=== PATIENT | male | born 1965 | race Caucasian/White ===

== ENCOUNTER 2018-10-17 12:16 | Inpatient (IN) | payer BC ==
[2018-10-17 13:44] LABS: AADO2 Arterial 442.7 mmHg (7.0-24.0); Allen Test ACCEPTAB; Arterial Base Excess 10.5 mmol/L (-3.0-3); Arterial Blood Gas Oxygen Sat 91.9 mmHG (95.0-98.0); Arterial COHb 0.3 % (0.0-3.0); Arterial Fraction of Oxyhgb 91.3 % (93.0-99.0); Arterial HCO3 36.9 mmol/L (22.0-26.0); Arterial MetHb 0.4 % (0.0-1.5); Arterial pCO2 58.8 mmhg (35-45); MODE VENT - PC/AC; Site Left Radial
[2018-10-17] MEDS ORDERED: BISACODYL 10 MG SUPP PR (14:00)
[2018-10-17] MEDS ORDERED: SENNA TAB PO (14:00)
[2018-10-17] MEDS ORDERED: POLYETHYLENE GLYCOL 17 GM PACKET GTB (14:00)
[2018-10-17] MEDS ORDERED: hydrALAzine 20 MG INJ IV (14:00)
[2018-10-17] MEDS ORDERED: MICONAZOLE 2% 30 GM CR TOP (14:00)
[2018-10-17] MEDS ORDERED: DEXTROSE 50% 50 ML SYRINGE IV ×2 (15:00)
[2018-10-17] MEDS ORDERED: GLUCAGON 1 MG INJ IM (15:00)
[2018-10-17] MEDS ORDERED: GLUCOSE GEL 15 GRAM TUBE BUCCAL (15:00)
[2018-10-17] MEDS ORDERED: GLUCOSE GEL 15 GRAM TUBE PO ×2 (15:00)
[2018-10-17] MEDS: SOD CHLORIDE 0.9% 500 ML IV (15:23)
[2018-10-17] MEDS: GABAPENTIN (50 MG/ML PO SYG) GTB ×2 (15:42→21:54)
[2018-10-17] MEDS: INSULIN ASPART [NOVOLOG] 3 ML PEN SC ×2 (15:42→20:00)
[2018-10-17] MEDS: HYDROCORTISONE 5 MG TAB PO ×2 (15:43→21:54)
[2018-10-17] MEDS: HYDROmorphONE 2 MG TAB PO (15:44)
[2018-10-17] MEDS ORDERED: ALBUTEROL/IPRATROPIUM (NEB) 3 ML AMP HHN (17:00)
[2018-10-17] MEDS: LANSOPRAZOLE 30 MG CAP GTB (17:13)
[2018-10-17] MEDS: ALBUTEROL HFA 8 GM INHALER INH (19:28)
[2018-10-17] MEDS: IPRATROPIUM (HFA) 12.9 GM INHALER INH (19:28)
[2018-10-17] MEDS: PIPER-TAZO 3.375 GM IV (PMX) 100 ML IVPB (20:08)
[2018-10-17] MEDS: METOPROLOL 50 MG TAB GTB (21:00)
[2018-10-17] MEDS: LEVETIRACETAM (100 MG/ML) 5ML CUP GTB (21:52)
[2018-10-17] MEDS: MAGNESIUM OXIDE 400 MG TAB GTB (21:53)
[2018-10-17] MEDS: L ACIDOPHIL/B LACTIS/B LONGUM CAPSULE GTB (21:54)
[2018-10-17] MEDS: METOCLOPRAMIDE 10 MG INJ IV (21:58)
[2018-10-17] MEDS: ONDANSETRON 4 MG INJ IV (22:13)
[2018-10-17] MEDS: HYDROXYCHLOROQUINE 200 MG TAB PO (23:26)
[2018-10-17] MEDS: MICONAZOLE 2% 30 GM CR TOP (23:28)
[2018-10-18] MEDS: PIPER-TAZO 3.375 GM IV (PMX) 100 ML IVPB ×4 (01:01→17:34)
[2018-10-18] MEDS: IPRATROPIUM (HFA) 12.9 GM INHALER INH ×4 (01:49→19:45)
[2018-10-18] MEDS: ALBUTEROL HFA 8 GM INHALER INH ×4 (01:49→19:45)
[2018-10-18] MEDS: INSULIN ASPART [NOVOLOG] 3 ML PEN SC ×4 (02:00→20:00)
[2018-10-18] MEDS: ACCU-CHEK XX (02:33)
[2018-10-18] MEDS: ACETAMINOPHEN 650MG/20.3ML CUP GTB (03:10)
[2018-10-18] MEDS: GABAPENTIN (50 MG/ML PO SYG) GTB ×3 (05:32→21:53)
[2018-10-18] MEDS: LANSOPRAZOLE 30 MG CAP GTB ×2 (05:32→17:34)
[2018-10-18] MEDS: HYDROmorphONE 2 MG TAB PO ×5 (05:32→21:55)
[2018-10-18 05:38] LABS: ADD MAN DIFF? NO
[2018-10-18 05:57] LABS: WHITE BLOOD COUNT 18.6 10^3/ul (4.8-10.8)
[2018-10-18 05:57] LABS: ABNORMAL IP MESSAGE 1; BASOPHIL # 0.3 10^3/ul (0.0-0.1); BASOPHILS % 1.5 % (0.0-2.0); EOSINOPHILS # 3.6 10^3/ul (0.0-0.5); EOSINOPHILS % 19.5 % (0.0-7.0); HEMATOCRIT 30.8 % (42.0-52.0); HEMOGLOBIN 9.3 g/dl (14.0-18.0); LYMPHOCYTES # 1.2 10^3/ul (0.8-2.9); LYMPHOCYTES % 6.5 % (15.0-51.0); MEAN CORPUSCULAR HEMOGLOBIN 29.2 pg (29.0-33.0); MEAN CORPUSCULAR HGB CONC 30.2 g/dl (32.0-37.0); MEAN CORPUSCULAR VOLUME 96.6 fl (82.0-101.0); MEAN PLATELET VOLUME 11.6 fl (7.4-10.4); MONOCYTE # 1.2 10^3/ul (0.3-0.9); MONOCYTES % 6.7 % (0.0-11.0); NEUTROPHIL # 11.9 10^3/ul (1.6-7.5); NEUTROPHILS % 63.9 % (39.0-77.0); PLATELET COUNT 366 10^3/UL (140-415); POSITIVE DIFF @See below; RED BLOOD COUNT 3.19 10^6/ul (4.70-6.10); RED CELL DISTRIBUTION WIDTH 16.3 % (11.5-14.5)
[2018-10-18 06:34] LABS: ANION GAP 7 (5-13); BLOOD UREA NITROGEN 46 mg/dl (7-20); CALCIUM 11.1 mg/dl (8.4-10.2); CARBON DIOXIDE 36 mmol/L (21-31); CHLORIDE 104 mmol/L (97-110); CREATININE 0.96 mg/dl (0.61-1.24); Estimated GFR > 60 mL/min (>60); GLUCOSE 70 mg/dl (70-220); MAGNESIUM 2.5 mg/dl (1.7-2.5); PHOSPHORUS 4.8 mg/dl (2.5-4.9); SODIUM 147 mmol/L (135-144)
[2018-10-18 07:47] LABS: TROPONIN-I < 0.012 ng/ml (0.000-0.120)
[2018-10-18] MEDS: SOD CHLORIDE 0.9% 500 ML IV (07:59)
[2018-10-18] MEDS: METOPROLOL 50 MG TAB GTB (09:00)
[2018-10-18] MEDS: FUROSEMIDE 40 MG INJ IV (09:00)
[2018-10-18] MEDS: METOCLOPRAMIDE 10 MG INJ IV ×3 (09:00→21:54)
[2018-10-18] MEDS: L ACIDOPHIL/B LACTIS/B LONGUM CAPSULE GTB ×2 (09:07→21:53)
[2018-10-18] MEDS: TRIMETHOPRIM/SULFAMETHOX (PO SYG) GTB (09:08)
[2018-10-18] MEDS: LEVETIRACETAM (100 MG/ML) 5ML CUP GTB ×2 (09:08→21:55)
[2018-10-18] MEDS: HYDROCORTISONE 5 MG TAB PO ×3 (09:08→21:54)
[2018-10-18] MEDS: POTASSIUM CHLORIDE 20 MEQ POWDER FOR ORAL SOLN GTB (09:09)
[2018-10-18] MEDS: MAGNESIUM OXIDE 400 MG TAB GTB ×2 (09:09→21:55)
[2018-10-18] MEDS: MICONAZOLE 2% 30 GM CR TOP ×2 (09:10→21:54)
[2018-10-18] MEDS: DULOXETINE 30 MG CAP DR PO (09:10)
[2018-10-18] MEDS: HYDROXYCHLOROQUINE 200 MG TAB PO ×2 (09:10→21:54)
[2018-10-18 09:41] LABS: AADO2 Arterial 335.3 mmHg (7.0-24.0); Allen Test ACCEPTAB; Arterial Base Excess 8.2 mmol/L (-3.0-3); Arterial Blood Gas Oxygen Sat 96.8 mmHG (95.0-98.0); Arterial COHb 0.4 % (0.0-3.0); Arterial Fraction of Oxyhgb 96.1 % (93.0-99.0); Arterial HCO3 34.5 mmol/L (22.0-26.0); Arterial MetHb 0.3 % (0.0-1.5); Arterial pCO2 58.1 mmhg (35-45); MODE VENT - PC; Site Left Radial
[2018-10-18] MEDS: ALPRAZOLAM 0.5 MG TAB GTB (17:14)
[2018-10-18] MEDS: ATENOLOL 25 MG TAB PO (21:53)
[2018-10-18] MEDS: BALSAM PERU/CASTOR OIL 60 GM TUBE TOP (21:53)
[2018-10-19] MEDS: PIPER-TAZO 3.375 GM IV (PMX) 100 ML IVPB ×5 (00:57→23:41)
[2018-10-19] MEDS: ACCU-CHEK XX (02:00)
[2018-10-19] MEDS: INSULIN ASPART [NOVOLOG] 3 ML PEN SC ×4 (02:00→20:00)
[2018-10-19] MEDS: ZOLPIDEM 5 MG TAB PO (02:03)
[2018-10-19] MEDS: HYDROmorphONE 2 MG TAB PO ×4 (02:04→14:54)
[2018-10-19] MEDS: IPRATROPIUM (HFA) 12.9 GM INHALER INH ×4 (02:20→20:05)
[2018-10-19] MEDS: ALBUTEROL HFA 8 GM INHALER INH ×4 (02:20→20:05)
[2018-10-19] MEDS: GABAPENTIN (50 MG/ML PO SYG) GTB ×3 (05:19→22:24)
[2018-10-19] MEDS: ALPRAZOLAM 0.5 MG TAB GTB ×2 (05:19→13:32)
[2018-10-19] MEDS: LANSOPRAZOLE 30 MG CAP GTB ×2 (05:19→17:16)
[2018-10-19 05:30] LABS: ADD MAN DIFF? NO
[2018-10-19 05:40] LABS: WHITE BLOOD COUNT 14.7 10^3/ul (4.8-10.8)
[2018-10-19 05:40] LABS: ABNORMAL IP MESSAGE 1; BASOPHIL # 0.2 10^3/ul (0.0-0.1); BASOPHILS % 1.1 % (0.0-2.0); EOSINOPHILS # 0.2 10^3/ul (0.0-0.5); EOSINOPHILS % 1.3 % (0.0-7.0); HEMATOCRIT 27.5 % (42.0-52.0); HEMOGLOBIN 8.2 g/dl (14.0-18.0); LYMPHOCYTES # 1.4 10^3/ul (0.8-2.9); LYMPHOCYTES % 9.2 % (15.0-51.0); MEAN CORPUSCULAR HGB CONC 29.8 g/dl (32.0-37.0); MEAN CORPUSCULAR VOLUME 97.2 fl (82.0-101.0); MEAN PLATELET VOLUME 11.6 fl (7.4-10.4); MONOCYTE # 1.7 10^3/ul (0.3-0.9); MONOCYTES % 11.7 % (0.0-11.0); NEUTROPHIL # 11.3 10^3/ul (1.6-7.5); NEUTROPHILS % 76.6 % (39.0-77.0); PLATELET COUNT 368 10^3/UL (140-415); POSITIVE DIFF @See below; RED BLOOD COUNT 2.83 10^6/ul (4.70-6.10); RED CELL DISTRIBUTION WIDTH 16.1 % (11.5-14.5)
[2018-10-19 06:52] LABS: ANION GAP 7 (5-13); BLOOD UREA NITROGEN 40 mg/dl (7-20); CALCIUM 10.1 mg/dl (8.4-10.2); CARBON DIOXIDE 35 mmol/L (21-31); CHLORIDE 109 mmol/L (97-110); CREATININE 0.97 mg/dl (0.61-1.24); Estimated GFR > 60 mL/min (>60); GLUCOSE 90 mg/dl (70-220); MAGNESIUM 2.6 mg/dl (1.7-2.5); PHOSPHORUS 4.4 mg/dl (2.5-4.9); POTASSIUM 3.6 mmol/L (3.5-5.1); SODIUM 151 mmol/L (135-144)
[2018-10-19 07:54] LABS: AADO2 Arterial 268.7 mmHg (7.0-24.0); Allen Test ACCEPTAB; Arterial Blood Gas Oxygen Sat 96.7 mmHG (95.0-98.0); Arterial COHb 1.1 % (0.0-3.0); Arterial Fraction of Oxyhgb 95.2 % (93.0-99.0); Arterial HCO3 33.7 mmol/L (22.0-26.0); Arterial MetHb 0.5 % (0.0-1.5); Arterial pCO2 54.5 mmhg (35-45); MODE VENT - PC; Site Left Radial
[2018-10-19] MEDS: MICONAZOLE 2% 30 GM CR TOP ×2 (08:07→20:31)
[2018-10-19] MEDS: BALSAM PERU/CASTOR OIL 60 GM TUBE TOP ×2 (08:07→20:31)
[2018-10-19] MEDS: LEVETIRACETAM (100 MG/ML) 5ML CUP GTB ×2 (08:38→20:28)
[2018-10-19] MEDS: TRIMETHOPRIM/SULFAMETHOX (PO SYG) GTB (08:38)
[2018-10-19] MEDS: METOCLOPRAMIDE 10 MG INJ IV ×3 (08:39→20:30)
[2018-10-19] MEDS: L ACIDOPHIL/B LACTIS/B LONGUM CAPSULE GTB ×2 (08:39→20:29)
[2018-10-19] MEDS: POTASSIUM CHLORIDE 20 MEQ POWDER FOR ORAL SOLN GTB (08:39)
[2018-10-19] MEDS: DULOXETINE 30 MG CAP DR PO (08:39)
[2018-10-19] MEDS: FUROSEMIDE 40 MG INJ IV (08:39)
[2018-10-19] MEDS: HYDROCORTISONE 5 MG TAB PO ×3 (08:39→20:29)
[2018-10-19] MEDS: HYDROXYCHLOROQUINE 200 MG TAB PO ×2 (08:40→20:30)
[2018-10-19] MEDS: MAGNESIUM OXIDE 400 MG TAB GTB ×2 (08:40→20:43)
[2018-10-19] MEDS: ATENOLOL 25 MG TAB PO ×2 (08:40→20:30)
[2018-10-19] MEDS: EPOETIN 10000 UNITS/1 ML INJ (ESRD) SC (13:54)
[2018-10-19 14:39] LABS: ADD UMIC NO; UR ASCORBIC ACID NEGATIVE (NEGATIVE); UR BILIRUBIN (Dip) NEGATIVE (NEGATIVE); UR BLOOD (Dip) NEGATIVE (NEGATIVE); UR CLARITY CLEAR (CLEAR); UR COLOR YELLOW (YELLOW); UR GLUCOSE (Dip) NEGATIVE (NEGATIVE); UR KETONES (Dip) NEGATIVE (NEGATIVE); UR LEUKOCYTE ESTERASE (Dip) NEGATIVE Leu/ul (NEGATIVE); UR NITRITE (Dip) NEGATIVE (NEGATIVE); UR SPECIFIC GRAVITY (Dip) 1.013 (1.003-1.030); UR TOTAL PROTEIN (Dip) NEGATIVE (NEGATIVE); UR UROBILINOGEN (Dip) NEGATIVE (NEGATIVE)
[2018-10-19 15:08] LABS: SODIUM,URINE RANDOM 92 mmol/L (30-90)
[2018-10-19 15:08] LABS: CREATININE,URINE RANDOM 17.56 mg/dl (20-370)
[2018-10-19 17:15] LABS: OSMOLALITY,URINE 386 mOsm/kg (250-1200)
[2018-10-19] MEDS: D5W + KCL 20 MEQ 1,000 ML IV (17:16)
[2018-10-19 19:28] LABS: OCCULT BLOOD STOOL NEGATIVE (NEGATIVE)
[2018-10-20] MEDS: IPRATROPIUM (HFA) 12.9 GM INHALER INH ×4 (01:05→19:42)
[2018-10-20] MEDS: ALBUTEROL HFA 8 GM INHALER INH ×4 (01:05→19:42)
[2018-10-20] MEDS: ONDANSETRON 4 MG INJ IV ×2 (01:12→11:23)
[2018-10-20] MEDS: ZOLPIDEM 5 MG TAB PO ×2 (01:24→21:28)
[2018-10-20] MEDS: INSULIN ASPART [NOVOLOG] 3 ML PEN SC ×4 (01:38→19:58)
[2018-10-20] MEDS: ACCU-CHEK XX (01:40)
[2018-10-20] MEDS: HYDROmorphONE 2 MG TAB PO ×5 (03:38→23:30)
[2018-10-20 04:50] LABS: ADD MAN DIFF? NO
[2018-10-20 04:54] LABS: WHITE BLOOD COUNT 14.9 10^3/ul (4.8-10.8)
[2018-10-20 04:54] LABS: ABNORMAL IP MESSAGE 1; BASOPHIL # 0.2 10^3/ul (0.0-0.1); BASOPHILS % 1.1 % (0.0-2.0); EOSINOPHILS # 3.2 10^3/ul (0.0-0.5); EOSINOPHILS % 21.5 % (0.0-7.0); HEMATOCRIT 27.9 % (42.0-52.0); HEMOGLOBIN 8.3 g/dl (14.0-18.0); LYMPHOCYTES # 1.5 10^3/ul (0.8-2.9); LYMPHOCYTES % 10.1 % (15.0-51.0); MEAN CORPUSCULAR HEMOGLOBIN 28.2 pg (29.0-33.0); MEAN CORPUSCULAR HGB CONC 29.7 g/dl (32.0-37.0); MEAN CORPUSCULAR VOLUME 94.9 fl (82.0-101.0); MEAN PLATELET VOLUME 10.9 fl (7.4-10.4); MONOCYTE # 1.9 10^3/ul (0.3-0.9); MONOCYTES % 12.9 % (0.0-11.0); NEUTROPHIL # 7.9 10^3/ul (1.6-7.5); NEUTROPHILS % 53.1 % (39.0-77.0); PLATELET COUNT 355 10^3/UL (140-415); POSITIVE DIFF @See below; RED BLOOD COUNT 2.94 10^6/ul (4.70-6.10); RED CELL DISTRIBUTION WIDTH 16.1 % (11.5-14.5)
[2018-10-20 05:12] LABS: ANION GAP 6 (5-13); BLOOD UREA NITROGEN 27 mg/dl (7-20); CALCIUM 9.5 mg/dl (8.4-10.2); CARBON DIOXIDE 36 mmol/L (21-31); CHLORIDE 105 mmol/L (97-110); CREATININE 0.78 mg/dl (0.61-1.24); Estimated GFR > 60 mL/min (>60); GLUCOSE 120 mg/dl (70-220); MAGNESIUM 2.3 mg/dl (1.7-2.5); PHOSPHORUS 3.8 mg/dl (2.5-4.9); POTASSIUM 3.6 mmol/L (3.5-5.1); SODIUM 147 mmol/L (135-144)
[2018-10-20] MEDS: GABAPENTIN (50 MG/ML PO SYG) GTB ×3 (05:55→21:06)
[2018-10-20] MEDS: LANSOPRAZOLE 30 MG CAP GTB ×2 (05:55→17:25)
[2018-10-20] MEDS: PIPER-TAZO 3.375 GM IV (PMX) 100 ML IVPB ×4 (05:59→23:14)
[2018-10-20] MEDS: ALPRAZOLAM 0.5 MG TAB GTB ×3 (06:40→17:26)
[2018-10-20] MEDS: TRIMETHOPRIM/SULFAMETHOX (PO SYG) GTB (08:34)
[2018-10-20] MEDS: MICONAZOLE 2% 30 GM CR TOP ×2 (08:34→20:03)
[2018-10-20] MEDS: LEVETIRACETAM (100 MG/ML) 5ML CUP GTB ×2 (08:34→20:00)
[2018-10-20] MEDS: L ACIDOPHIL/B LACTIS/B LONGUM CAPSULE GTB ×2 (08:35→20:53)
[2018-10-20] MEDS: DULOXETINE 30 MG CAP DR PO (08:35)
[2018-10-20] MEDS: BALSAM PERU/CASTOR OIL 60 GM TUBE TOP ×2 (08:35→20:03)
[2018-10-20] MEDS: HYDROCORTISONE 5 MG TAB PO ×3 (08:36→20:01)
[2018-10-20] MEDS: MAGNESIUM OXIDE 400 MG TAB GTB ×2 (08:36→20:00)
[2018-10-20] MEDS: ATENOLOL 25 MG TAB PO ×2 (08:36→20:01)
[2018-10-20] MEDS: METOCLOPRAMIDE 10 MG INJ IV ×3 (08:37→20:01)
[2018-10-20] MEDS: HYDROXYCHLOROQUINE 200 MG TAB PO ×2 (08:38→20:01)
[2018-10-20] MEDS: INFLUENZA VIRUS VACCINE 0.5 ML (DISPENSING) IM* (09:00)
[2018-10-20 14:28] LABS: IRON 35 ug/dl (35-150)
[2018-10-20 14:37] LABS: % IRON SATURATION 19 % SAT (22-52); TOTAL IRON BINDING CAPACITY 182 ug/dl (241-421)
[2018-10-20 17:35] LABS: Allen Test ACCEPTAB; Arterial Base Excess 7.2 mmol/L (-3.0-3); Arterial Blood Gas Oxygen Sat 93.2 mmHG (95.0-98.0); Arterial COHb 0.3 % (0.0-3.0); Arterial Fraction of Oxyhgb 92.5 % (93.0-99.0); Arterial HCO3 33.4 mmol/L (22.0-26.0); Arterial MetHb 0.5 % (0.0-1.5); Arterial pCO2 57.3 mmhg (35-45); MODE VENT - PC; Site Left Radial
[2018-10-21] MEDS: IPRATROPIUM (HFA) 12.9 GM INHALER INH ×4 (01:45→21:51)
[2018-10-21] MEDS: ALBUTEROL HFA 8 GM INHALER INH ×4 (01:45→21:51)
[2018-10-21] MEDS: ACCU-CHEK XX (02:00)
[2018-10-21] MEDS: INSULIN ASPART [NOVOLOG] 3 ML PEN SC ×4 (02:00→20:00)
[2018-10-21] MEDS: ONDANSETRON 4 MG INJ IV ×2 (03:10→09:09)
[2018-10-21] MEDS: ALPRAZOLAM 0.5 MG TAB GTB ×2 (03:10→09:06)
[2018-10-21] MEDS: HYDROmorphONE 2 MG TAB PO ×4 (04:50→20:02)
[2018-10-21] MEDS: LANSOPRAZOLE 30 MG CAP GTB ×2 (05:01→17:26)
[2018-10-21] MEDS: GABAPENTIN (50 MG/ML PO SYG) GTB ×3 (05:01→21:00)
[2018-10-21] MEDS: PIPER-TAZO 3.375 GM IV (PMX) 100 ML IVPB ×4 (05:01→23:27)
[2018-10-21 05:19] LABS: ADD MAN DIFF? NO
[2018-10-21 05:24] LABS: ABNORMAL IP MESSAGE 1; BASOPHIL # 0.2 10^3/ul (0.0-0.1); BASOPHILS % 1.3 % (0.0-2.0); EOSINOPHILS # 0.4 10^3/ul (0.0-0.5); EOSINOPHILS % 2.2 % (0.0-7.0); HEMATOCRIT 30.4 % (42.0-52.0); LYMPHOCYTES # 1.9 10^3/ul (0.8-2.9); LYMPHOCYTES % 11.4 % (15.0-51.0); MEAN CORPUSCULAR HEMOGLOBIN 28.1 pg (29.0-33.0); MEAN CORPUSCULAR HGB CONC 29.6 g/dl (32.0-37.0); MEAN PLATELET VOLUME 10.8 fl (7.4-10.4); MONOCYTE # 1.8 10^3/ul (0.3-0.9); MONOCYTES % 10.8 % (0.0-11.0); NEUTROPHIL # 12.4 10^3/ul (1.6-7.5); NEUTROPHILS % 74.1 % (39.0-77.0); PLATELET COUNT 381 10^3/UL (140-415); POSITIVE DIFF @See below; RED CELL DISTRIBUTION WIDTH 15.8 % (11.5-14.5)
[2018-10-21 05:24] LABS: WHITE BLOOD COUNT 16.7 10^3/ul (4.8-10.8)
[2018-10-21 05:43] LABS: ANION GAP 4 (5-13); BLOOD UREA NITROGEN 18 mg/dl (7-20); CALCIUM 8.7 mg/dl (8.4-10.2); CARBON DIOXIDE 32 mmol/L (21-31); CHLORIDE 103 mmol/L (97-110); CREATININE 0.63 mg/dl (0.61-1.24); Estimated GFR > 60 mL/min (>60); GLUCOSE 87 mg/dl (70-220); MAGNESIUM 1.9 mg/dl (1.7-2.5); PHOSPHORUS 3.6 mg/dl (2.5-4.9); POTASSIUM 3.8 mmol/L (3.5-5.1); SODIUM 139 mmol/L (135-144)
[2018-10-21] MEDS: DULOXETINE 30 MG CAP DR PO (08:52)
[2018-10-21] MEDS: LEVETIRACETAM (100 MG/ML) 5ML CUP GTB ×2 (08:52→20:45)
[2018-10-21] MEDS: ATENOLOL 25 MG TAB PO ×2 (08:53→21:01)
[2018-10-21] MEDS: HYDROCORTISONE 5 MG TAB PO ×3 (08:53→20:47)
[2018-10-21] MEDS: MAGNESIUM OXIDE 400 MG TAB GTB ×2 (08:53→20:48)
[2018-10-21] MEDS: HYDROXYCHLOROQUINE 200 MG TAB PO ×2 (08:53→20:45)
[2018-10-21] MEDS: METOCLOPRAMIDE 10 MG INJ IV ×3 (08:54→20:45)
[2018-10-21] MEDS: TRIMETHOPRIM/SULFAMETHOX (PO SYG) GTB (08:54)
[2018-10-21] MEDS: MICONAZOLE 2% 30 GM CR TOP ×2 (08:55→20:48)
[2018-10-21] MEDS: BALSAM PERU/CASTOR OIL 60 GM TUBE TOP ×2 (08:56→20:49)
[2018-10-21] MEDS: L ACIDOPHIL/B LACTIS/B LONGUM CAPSULE GTB ×2 (09:05→20:47)
[2018-10-21] MEDS: LORAZEPAM 2 MG INJ IV ×2 (11:26→22:27)
[2018-10-21 15:46] LABS: CREATININE, RANDOM URINE 20 mg/dL (20-320); MICROALBUMIN 0.7 mg/dL; MICROALBUMIN/CREATININE RATIO 35 (<30)
[2018-10-21] MEDS: predniSONE 5 MG TAB PO (15:48)
[2018-10-22] MEDS: ALPRAZOLAM 0.5 MG TAB GTB (01:42)
[2018-10-22] MEDS: HYDROmorphONE 2 MG TAB PO ×5 (01:49→23:19)
[2018-10-22] MEDS: INSULIN ASPART [NOVOLOG] 3 ML PEN SC ×4 (01:54→20:51)
[2018-10-22] MEDS: ACCU-CHEK XX (01:54)
[2018-10-22] MEDS: ALBUTEROL HFA 8 GM INHALER INH ×4 (02:00→21:50)
[2018-10-22] MEDS: IPRATROPIUM (HFA) 12.9 GM INHALER INH ×4 (03:02→21:50)
[2018-10-22 04:56] LABS: ADD MAN DIFF? NO
[2018-10-22] MEDS: GABAPENTIN (50 MG/ML PO SYG) GTB ×3 (05:00→21:04)
[2018-10-22] MEDS: ONDANSETRON 4 MG INJ IV ×2 (05:00→23:18)
[2018-10-22] MEDS: LANSOPRAZOLE 30 MG CAP GTB ×2 (05:00→18:29)
[2018-10-22] MEDS: PIPER-TAZO 3.375 GM IV (PMX) 100 ML IVPB ×4 (05:00→23:29)
[2018-10-22] MEDS: LORAZEPAM 2 MG INJ IV ×2 (05:03→10:37)
[2018-10-22 05:04] LABS: ABNORMAL IP MESSAGE 1; BASOPHIL # 0.2 10^3/ul (0.0-0.1); BASOPHILS % 1.1 % (0.0-2.0); EOSINOPHILS # 0.9 10^3/ul (0.0-0.5); EOSINOPHILS % 4.9 % (0.0-7.0); HEMATOCRIT 24.3 % (42.0-52.0); HEMOGLOBIN 7.5 g/dl (14.0-18.0); LYMPHOCYTES # 1.8 10^3/ul (0.8-2.9); LYMPHOCYTES % 10.6 % (15.0-51.0); MEAN CORPUSCULAR HEMOGLOBIN 28.5 pg (29.0-33.0); MEAN CORPUSCULAR HGB CONC 30.9 g/dl (32.0-37.0); MEAN CORPUSCULAR VOLUME 92.4 fl (82.0-101.0); MEAN PLATELET VOLUME 10.8 fl (7.4-10.4); MONOCYTE # 1.9 10^3/ul (0.3-0.9); NEUTROPHIL # 12.2 10^3/ul (1.6-7.5); NEUTROPHILS % 70.4 % (39.0-77.0); PLATELET COUNT 373 10^3/UL (140-415); POSITIVE DIFF @See below; RED BLOOD COUNT 2.63 10^6/ul (4.70-6.10); RED CELL DISTRIBUTION WIDTH 15.9 % (11.5-14.5)
[2018-10-22 05:04] LABS: WHITE BLOOD COUNT 17.3 10^3/ul (4.8-10.8)
[2018-10-22 05:15] LABS: ALANINE AMINOTRANSFERASE 29 IU/L (13-69); ALBUMIN 2.6 g/dl (3.3-4.9); ALBUMIN/GLOBULIN RATIO 0.92; ALKALINE PHOSPHATASE 232 IU/L (42-121); ANION GAP 5 (5-13); ASPARTATE AMINO TRANSFERASE 37 IU/L (15-46); BLOOD UREA NITROGEN 14 mg/dl (7-20); CALCIUM 7.7 mg/dl (8.4-10.2); CARBON DIOXIDE 32 mmol/L (21-31); CHLORIDE 101 mmol/L (97-110); CREATININE 0.69 mg/dl (0.61-1.24); Estimated GFR > 60 mL/min (>60); GLUCOSE 114 mg/dl (70-220); POTASSIUM 3.6 mmol/L (3.5-5.1); SODIUM 138 mmol/L (135-144); TOTAL PROTEIN 5.4 g/dl (6.1-8.1)
[2018-10-22 05:16] LABS: MAGNESIUM 1.7 mg/dl (1.7-2.5)
[2018-10-22 05:16] LABS: PHOSPHORUS 4.2 mg/dl (2.5-4.9)
[2018-10-22 05:51] LABS: IONIZED CALCIUM 1.1 mmol/L (1.1-1.4)
[2018-10-22] MEDS: ATENOLOL 25 MG TAB PO (09:54)
[2018-10-22] MEDS: LEVETIRACETAM (100 MG/ML) 5ML CUP GTB ×2 (09:54→20:41)
[2018-10-22] MEDS: DULOXETINE 30 MG CAP DR PO (09:55)
[2018-10-22] MEDS: HYDROCORTISONE 5 MG TAB PO (09:55)
[2018-10-22] MEDS: HYDROXYCHLOROQUINE 200 MG TAB PO ×2 (09:55→20:42)
[2018-10-22] MEDS: MAGNESIUM OXIDE 400 MG TAB GTB ×2 (09:56→20:42)
[2018-10-22] MEDS: L ACIDOPHIL/B LACTIS/B LONGUM CAPSULE GTB ×2 (09:56→20:41)
[2018-10-22] MEDS: predniSONE 5 MG TAB PO (09:56)
[2018-10-22] MEDS: TRIMETHOPRIM/SULFAMETHOX (PO SYG) GTB (09:57)
[2018-10-22] MEDS: METOCLOPRAMIDE 10 MG INJ IV ×3 (10:00→20:42)
[2018-10-22] MEDS: BALSAM PERU/CASTOR OIL 60 GM TUBE TOP ×2 (10:04→20:43)
[2018-10-22] MEDS: MICONAZOLE 2% 30 GM CR TOP ×2 (10:04→20:43)
[2018-10-22] MEDS: METHYLPREDNISOLONE 40 MG INJ IV ×2 (14:47→21:53)
[2018-10-22] MEDS: LORAZEPAM 1 MG TAB GTB ×2 (14:47→22:45)
[2018-10-22] MEDS: QUETIAPINE 25 MG TAB GTB ×2 (16:10→22:17)
[2018-10-22] MEDS: FENTAnyl PATCH 50 MCG/HR TRANSDERM (20:18)
[2018-10-23] MEDS: ZOLPIDEM 5 MG TAB PO (00:09)
[2018-10-23] MEDS: ALBUTEROL HFA 8 GM INHALER INH ×4 (01:14→22:20)
[2018-10-23] MEDS: IPRATROPIUM (HFA) 12.9 GM INHALER INH ×4 (01:14→22:20)
[2018-10-23] MEDS: ACCU-CHEK XX (01:32)
[2018-10-23] MEDS: INSULIN ASPART [NOVOLOG] 3 ML PEN SC ×4 (01:33→21:03)
[2018-10-23] MEDS: LORAZEPAM 1 MG TAB GTB ×4 (03:47→16:20)
[2018-10-23] MEDS: HYDROmorphONE 2 MG TAB PO ×5 (03:55→22:55)
[2018-10-23] MEDS: METHYLPREDNISOLONE 40 MG INJ IV ×3 (05:18→21:15)
[2018-10-23] MEDS: LANSOPRAZOLE 30 MG CAP GTB ×2 (05:18→17:48)
[2018-10-23] MEDS: PIPER-TAZO 3.375 GM IV (PMX) 100 ML IVPB ×3 (05:18→17:48)
[2018-10-23] MEDS: GABAPENTIN (50 MG/ML PO SYG) GTB ×3 (05:18→21:19)
[2018-10-23 07:52] LABS: MAGNESIUM 1.8 mg/dl (1.7-2.5)
[2018-10-23 07:52] LABS: PHOSPHORUS 4.4 mg/dl (2.5-4.9)
[2018-10-23 07:53] LABS: ALANINE AMINOTRANSFERASE 28 IU/L (13-69); ALBUMIN 3.1 g/dl (3.3-4.9); ALBUMIN/GLOBULIN RATIO 0.96; ALKALINE PHOSPHATASE 237 IU/L (42-121); ANION GAP 8 (5-13); ASPARTATE AMINO TRANSFERASE 34 IU/L (15-46); BLOOD UREA NITROGEN 15 mg/dl (7-20); CALCIUM 7.6 mg/dl (8.4-10.2); CARBON DIOXIDE 32 mmol/L (21-31); CHLORIDE 101 mmol/L (97-110); CREATININE 0.62 mg/dl (0.61-1.24); Estimated GFR > 60 mL/min (>60); GLUCOSE 130 mg/dl (70-220); POTASSIUM 4.1 mmol/L (3.5-5.1); SODIUM 141 mmol/L (135-144); TOTAL PROTEIN 6.3 g/dl (6.1-8.1)
[2018-10-23] MEDS: HYDROXYCHLOROQUINE 200 MG TAB PO ×2 (08:46→21:15)
[2018-10-23] MEDS: DULOXETINE 30 MG CAP DR PO (08:46)
[2018-10-23] MEDS: TRIMETHOPRIM/SULFAMETHOX (PO SYG) GTB (08:46)
[2018-10-23] MEDS: LEVETIRACETAM (100 MG/ML) 5ML CUP GTB ×2 (08:46→21:16)
[2018-10-23] MEDS: QUETIAPINE 25 MG TAB GTB ×2 (08:46→21:15)
[2018-10-23] MEDS: LISINOPRIL 5 MG TAB PO (08:47)
[2018-10-23] MEDS: MAGNESIUM OXIDE 400 MG TAB GTB ×2 (08:47→21:15)
[2018-10-23] MEDS: BALSAM PERU/CASTOR OIL 60 GM TUBE TOP ×2 (08:48→21:16)
[2018-10-23] MEDS: L ACIDOPHIL/B LACTIS/B LONGUM CAPSULE GTB ×2 (08:48→21:19)
[2018-10-23] MEDS: MICONAZOLE 2% 30 GM CR TOP ×2 (08:48→21:16)
[2018-10-23] MEDS: METOCLOPRAMIDE 10 MG INJ IV ×3 (08:48→21:15)
[2018-10-23] MEDS: DILTIAZEM 25 MG INJ IV (09:00)
[2018-10-23 09:52] LABS: AADO2 Arterial 527.7 mmHg (7.0-24.0); Allen Test ACCEPTAB; Arterial Base Excess 4.5 mmol/L (-3.0-3); Arterial Blood Gas Oxygen Sat 98.2 mmHG (95.0-98.0); Arterial COHb 0.4 % (0.0-3.0); Arterial Fraction of Oxyhgb 97.6 % (93.0-99.0); Arterial HCO3 30.3 mmol/L (22.0-26.0); Arterial MetHb 0.2 % (0.0-1.5); Arterial pCO2 51.1 mmhg (35-45); MODE VENT - PC; Site Right Radial
[2018-10-23] MEDS: BUMETANIDE 3 MG in DEXTROSE 5% 18 ML IV (10:04)
[2018-10-23] MEDS: EPOETIN 10000 UNITS/1 ML INJ (ESRD) SC (13:20)
[2018-10-23] MEDS: ONDANSETRON 4 MG INJ IV (22:52)
[2018-10-24] MEDS: INSULIN ASPART [NOVOLOG] 3 ML PEN SC ×4 (02:48→21:04)
[2018-10-24] MEDS: ACCU-CHEK XX (02:48)
[2018-10-24] MEDS: ALBUTEROL HFA 8 GM INHALER INH ×4 (02:58→19:20)
[2018-10-24] MEDS: IPRATROPIUM (HFA) 12.9 GM INHALER INH ×4 (02:59→19:20)
[2018-10-24] MEDS: LORAZEPAM 1 MG TAB GTB ×5 (03:42→21:13)
[2018-10-24] MEDS: ZOLPIDEM 5 MG TAB PO (03:48)
[2018-10-24] MEDS: HYDROmorphONE 2 MG TAB PO ×5 (03:48→21:13)
[2018-10-24 05:01] LABS: AADO2 Arterial 436.9 mmHg (7.0-24.0); Allen Test ACCEPTAB; Arterial Base Excess 5.5 mmol/L (-3.0-3); Arterial Blood Gas Oxygen Sat 98.7 mmHG (95.0-98.0); Arterial COHb 0.5 % (0.0-3.0); Arterial Fraction of Oxyhgb 97.9 % (93.0-99.0); Arterial HCO3 31.3 mmol/L (22.0-26.0); Arterial MetHb 0.3 % (0.0-1.5); Arterial pCO2 52.1 mmhg (35-45); MODE VENT - PC; Site Right Radial
[2018-10-24 05:36] LABS: ADD MAN DIFF? NO
[2018-10-24 05:39] LABS: WHITE BLOOD COUNT 27.3 10^3/ul (4.8-10.8)
[2018-10-24 05:39] LABS: ABNORMAL IP MESSAGE 1; BASOPHIL # 0.1 10^3/ul (0.0-0.1); BASOPHILS % 0.3 % (0.0-2.0); HEMATOCRIT 28.9 % (42.0-52.0); LYMPHOCYTES # 1.6 10^3/ul (0.8-2.9); LYMPHOCYTES % 5.9 % (15.0-51.0); MEAN CORPUSCULAR HEMOGLOBIN 28.7 pg (29.0-33.0); MEAN CORPUSCULAR HGB CONC 31.1 g/dl (32.0-37.0); MEAN PLATELET VOLUME 10.8 fl (7.4-10.4); MONOCYTE # 2.4 10^3/ul (0.3-0.9); NEUTROPHILS % 80.8 % (39.0-77.0); NUCLEATED RED BLOOD CELLS% 0.1 /100WBC (0.0-0.0); PLATELET COUNT 476 10^3/UL (140-415); POSITIVE DIFF @See below; RED BLOOD COUNT 3.14 10^6/ul (4.70-6.10); RED CELL DISTRIBUTION WIDTH 17.3 % (11.5-14.5)
[2018-10-24 05:55] LABS: ANION GAP 5 (5-13); BLOOD UREA NITROGEN 24 mg/dl (7-20); CALCIUM 6.7 mg/dl (8.4-10.2); CARBON DIOXIDE 35 mmol/L (21-31); CHLORIDE 101 mmol/L (97-110); CREATININE 0.56 mg/dl (0.61-1.24); Estimated GFR > 60 mL/min (>60); GLUCOSE 139 mg/dl (70-220); POTASSIUM 4.1 mmol/L (3.5-5.1); SODIUM 141 mmol/L (135-144)
[2018-10-24 05:58] LABS: LACTIC ACID 0.9 mmol/L (0.5-2.0)
[2018-10-24] MEDS: LANSOPRAZOLE 30 MG CAP GTB ×2 (06:07→17:07)
[2018-10-24] MEDS: METHYLPREDNISOLONE 40 MG INJ IV ×3 (06:07→21:15)
[2018-10-24] MEDS: GABAPENTIN (50 MG/ML PO SYG) GTB ×3 (06:07→21:12)
[2018-10-24] MEDS: ACETAMINOPHEN 650MG/20.3ML CUP GTB (07:52)
[2018-10-24] MEDS: LEVETIRACETAM (100 MG/ML) 5ML CUP GTB ×2 (08:41→21:12)
[2018-10-24] MEDS: METOCLOPRAMIDE 10 MG INJ IV ×3 (08:41→21:15)
[2018-10-24] MEDS: TRIMETHOPRIM/SULFAMETHOX (PO SYG) GTB (08:41)
[2018-10-24] MEDS: LISINOPRIL 5 MG TAB PO (08:41)
[2018-10-24] MEDS: QUETIAPINE 25 MG TAB GTB ×2 (08:42→21:13)
[2018-10-24] MEDS: HYDROXYCHLOROQUINE 200 MG TAB PO ×2 (08:42→21:13)
[2018-10-24] MEDS: MAGNESIUM OXIDE 400 MG TAB GTB ×2 (08:42→21:13)
[2018-10-24] MEDS: DULOXETINE 30 MG CAP DR PO (08:43)
[2018-10-24] MEDS: MICONAZOLE 2% 30 GM CR TOP ×2 (08:43→21:32)
[2018-10-24] MEDS: BALSAM PERU/CASTOR OIL 60 GM TUBE TOP ×2 (08:43→21:32)
[2018-10-24] MEDS: L ACIDOPHIL/B LACTIS/B LONGUM CAPSULE GTB ×2 (08:49→21:13)
[2018-10-24] MEDS: CA CARBONATE (250 MG/ML) 5ML CUP GTB ×2 (12:57→21:12)
[2018-10-24] MEDS: LINAGLIPTIN 5 MG TABLET PO (13:01)
[2018-10-24] MEDS: DILTIAZEM 25 MG INJ IV ×2 (15:37→21:41)
[2018-10-24] MEDS: DIPHENHYDRAMINE 2.5 MG/ML 5ML CUP GTB (15:55)
[2018-10-24] MEDS: ONDANSETRON 4 MG INJ IV (21:31)
[2018-10-25] MEDS: LORAZEPAM 1 MG TAB GTB ×5 (00:42→21:41)
[2018-10-25] MEDS: HYDROmorphONE 2 MG TAB PO ×6 (00:43→21:41)
[2018-10-25] MEDS: IPRATROPIUM (HFA) 12.9 GM INHALER INH ×4 (01:04→21:24)
[2018-10-25] MEDS: ALBUTEROL HFA 8 GM INHALER INH ×4 (01:04→21:24)
[2018-10-25] MEDS: INSULIN ASPART [NOVOLOG] 3 ML PEN SC ×4 (02:32→20:01)
[2018-10-25] MEDS: ACCU-CHEK XX (02:32)
[2018-10-25] MEDS: ZOLPIDEM 5 MG TAB PO (03:39)
[2018-10-25 05:20] LABS: ADD MAN DIFF? NO
[2018-10-25 05:29] LABS: WHITE BLOOD COUNT 27.5 10^3/ul (4.8-10.8)
[2018-10-25 05:29] LABS: ABNORMAL IP MESSAGE 1; BASOPHIL # 0.1 10^3/ul (0.0-0.1); BASOPHILS % 0.4 % (0.0-2.0); HEMATOCRIT 30.1 % (42.0-52.0); HEMOGLOBIN 9.3 g/dl (14.0-18.0); LYMPHOCYTES # 1.5 10^3/ul (0.8-2.9); LYMPHOCYTES % 5.3 % (15.0-51.0); MEAN CORPUSCULAR HEMOGLOBIN 28.6 pg (29.0-33.0); MEAN CORPUSCULAR HGB CONC 30.9 g/dl (32.0-37.0); MEAN CORPUSCULAR VOLUME 92.6 fl (82.0-101.0); MEAN PLATELET VOLUME 10.7 fl (7.4-10.4); MONOCYTE # 2.2 10^3/ul (0.3-0.9); NEUTROPHIL # 22.3 10^3/ul (1.6-7.5); NEUTROPHILS % 80.8 % (39.0-77.0); NUCLEATED RED BLOOD CELLS # 0.1 10^3/ul (0.0-0.0); NUCLEATED RED BLOOD CELLS% 0.3 /100WBC (0.0-0.0); PLATELET COUNT 518 10^3/UL (140-415); POSITIVE DIFF @See below; RED BLOOD COUNT 3.25 10^6/ul (4.70-6.10); RED CELL DISTRIBUTION WIDTH 17.5 % (11.5-14.5)
[2018-10-25 05:39] LABS: AADO2 Arterial 379.3 mmHg (7.0-24.0); Allen Test ACCEPTAB; Arterial Base Excess 5.6 mmol/L (-3.0-3); Arterial Blood Gas Oxygen Sat 98.3 mmHG (95.0-98.0); Arterial COHb 0.9 % (0.0-3.0); Arterial Fraction of Oxyhgb 97.3 % (93.0-99.0); Arterial HCO3 33.2 mmol/L (22.0-26.0); Arterial MetHb 0.1 % (0.0-1.5); Arterial pCO2 63.6 mmhg (35-45); MODE VENT - PC; Site Left Radial
[2018-10-25 05:53] LABS: ANION GAP 6 (5-13); BLOOD UREA NITROGEN 26 mg/dl (7-20); CALCIUM 6.5 mg/dl (8.4-10.2); CARBON DIOXIDE 37 mmol/L (21-31); CHLORIDE 94 mmol/L (97-110); CREATININE 0.56 mg/dl (0.61-1.24); Estimated GFR > 60 mL/min (>60); GLUCOSE 157 mg/dl (70-220); POTASSIUM 4.5 mmol/L (3.5-5.1); SODIUM 137 mmol/L (135-144)
[2018-10-25] MEDS: METHYLPREDNISOLONE 40 MG INJ IV ×3 (06:05→21:40)
[2018-10-25] MEDS: LANSOPRAZOLE 30 MG CAP GTB ×2 (06:05→17:19)
[2018-10-25] MEDS: GABAPENTIN (50 MG/ML PO SYG) GTB ×3 (06:05→21:40)
[2018-10-25] MEDS: METOCLOPRAMIDE 10 MG INJ IV ×3 (09:07→21:40)
[2018-10-25] MEDS: QUETIAPINE 25 MG TAB GTB ×2 (09:08→21:43)
[2018-10-25] MEDS: DULOXETINE 30 MG CAP DR PO (09:08)
[2018-10-25] MEDS: LINAGLIPTIN 5 MG TABLET PO (09:08)
[2018-10-25] MEDS: L ACIDOPHIL/B LACTIS/B LONGUM CAPSULE GTB ×2 (09:08→22:38)
[2018-10-25] MEDS: MAGNESIUM OXIDE 400 MG TAB GTB ×2 (09:09→21:41)
[2018-10-25] MEDS: LEVETIRACETAM (100 MG/ML) 5ML CUP GTB ×2 (09:09→21:40)
[2018-10-25] MEDS: CA CARBONATE (250 MG/ML) 5ML CUP GTB ×3 (09:09→21:40)
[2018-10-25] MEDS: LISINOPRIL 5 MG TAB PO (09:10)
[2018-10-25] MEDS: TRIMETHOPRIM/SULFAMETHOX (PO SYG) GTB (09:10)
[2018-10-25] MEDS: MICONAZOLE 2% 30 GM CR TOP ×2 (09:11→21:42)
[2018-10-25] MEDS: HYDROXYCHLOROQUINE 200 MG TAB PO ×2 (09:11→21:41)
[2018-10-25] MEDS: BALSAM PERU/CASTOR OIL 60 GM TUBE TOP ×2 (09:11→21:42)
[2018-10-25] MEDS: DIGOXIN 500 MCG INJ IV ×2 (12:20→17:18)
[2018-10-25] MEDS: AL HYDROX/MG HYDROX/SIMETH 30 ML CUP PO (13:18)
[2018-10-25] MEDS: FENTAnyl PATCH 50 MCG/HR TRANSDERM (20:56)
[2018-10-25] MEDS: DIPHENHYDRAMINE 2.5 MG/ML 5ML CUP GTB (23:27)
[2018-10-26] MEDS: DILTIAZEM 25 MG INJ IV (01:09)
[2018-10-26] MEDS: ALBUTEROL HFA 8 GM INHALER INH ×4 (01:17→19:54)
[2018-10-26] MEDS: IPRATROPIUM (HFA) 12.9 GM INHALER INH ×4 (01:17→19:54)
[2018-10-26] MEDS: LORAZEPAM 1 MG TAB GTB ×5 (01:18→23:22)
[2018-10-26] MEDS: HYDROmorphONE 2 MG TAB PO ×6 (01:19→23:23)
[2018-10-26] MEDS: INSULIN ASPART [NOVOLOG] 3 ML PEN SC ×4 (02:00→21:17)
[2018-10-26] MEDS: ACCU-CHEK XX (02:19)
[2018-10-26] MEDS: LANSOPRAZOLE 30 MG CAP GTB ×2 (05:17→17:09)
[2018-10-26] MEDS: METHYLPREDNISOLONE 40 MG INJ IV ×3 (05:17→21:21)
[2018-10-26] MEDS: GABAPENTIN (50 MG/ML PO SYG) GTB ×3 (05:18→21:21)
[2018-10-26 05:31] LABS: WHITE BLOOD COUNT 31.8 10^3/ul (4.8-10.8)
[2018-10-26 05:31] LABS: ABNORMAL IP MESSAGE 1; HEMATOCRIT 32.8 % (42.0-52.0); HEMOGLOBIN 10.4 g/dl (14.0-18.0); MEAN CORPUSCULAR HEMOGLOBIN 29.1 pg (29.0-33.0); MEAN CORPUSCULAR HGB CONC 31.7 g/dl (32.0-37.0); MEAN CORPUSCULAR VOLUME 91.6 fl (82.0-101.0); MEAN PLATELET VOLUME 10.9 fl (7.4-10.4); NUCLEATED RED BLOOD CELLS% 0.5 /100WBC (0.0-0.0); PLATELET COUNT 591 10^3/UL (140-415); POSITIVE DIFF @See below; RED BLOOD COUNT 3.58 10^6/ul (4.70-6.10)
[2018-10-26 05:36] LABS: ADD MAN DIFF? YES
[2018-10-26 05:59] LABS: ALANINE AMINOTRANSFERASE 19 IU/L (13-69); ALBUMIN 3.3 g/dl (3.3-4.9); ALBUMIN/GLOBULIN RATIO 1.06; ALKALINE PHOSPHATASE 210 IU/L (42-121); ANION GAP 7 (5-13); ASPARTATE AMINO TRANSFERASE 33 IU/L (15-46); BLOOD UREA NITROGEN 27 mg/dl (7-20); CALCIUM 6.6 mg/dl (8.4-10.2); CARBON DIOXIDE 35 mmol/L (21-31); CHLORIDE 95 mmol/L (97-110); Estimated GFR > 60 mL/min (>60); GLUCOSE 134 mg/dl (70-220); POTASSIUM 4.5 mmol/L (3.5-5.1); SODIUM 137 mmol/L (135-144); TOTAL PROTEIN 6.4 g/dl (6.1-8.1)
[2018-10-26 06:04] LABS: MAGNESIUM 1.9 mg/dl (1.7-2.5)
[2018-10-26 06:04] LABS: PHOSPHORUS 3.8 mg/dl (2.5-4.9)
[2018-10-26 07:25] LABS: IONIZED CALCIUM 0.9 mmol/L (1.1-1.4)
[2018-10-26] MEDS: CA CARBONATE (250 MG/ML) 5ML CUP GTB ×3 (08:25→21:21)
[2018-10-26] MEDS: TRIMETHOPRIM/SULFAMETHOX (PO SYG) GTB (08:26)
[2018-10-26] MEDS: LEVETIRACETAM (100 MG/ML) 5ML CUP GTB ×2 (08:26→21:20)
[2018-10-26] MEDS: HYDROXYCHLOROQUINE 200 MG TAB PO ×2 (08:27→21:20)
[2018-10-26] MEDS: LINAGLIPTIN 5 MG TABLET PO (08:27)
[2018-10-26] MEDS: QUETIAPINE 25 MG TAB GTB ×2 (08:27→21:20)
[2018-10-26] MEDS: MAGNESIUM OXIDE 400 MG TAB GTB ×2 (08:27→21:21)
[2018-10-26] MEDS: LISINOPRIL 5 MG TAB PO (08:28)
[2018-10-26] MEDS: L ACIDOPHIL/B LACTIS/B LONGUM CAPSULE GTB ×2 (08:28→21:58)
[2018-10-26] MEDS: METOCLOPRAMIDE 10 MG INJ IV ×3 (08:28→21:21)
[2018-10-26] MEDS: DULOXETINE 30 MG CAP DR PO (08:28)
[2018-10-26] MEDS: BALSAM PERU/CASTOR OIL 60 GM TUBE TOP ×2 (08:29→21:57)
[2018-10-26] MEDS: MICONAZOLE 2% 30 GM CR TOP ×2 (08:29→21:57)
[2018-10-26] MEDS: CALCITRIOL 0.25 MCG CAP PO (09:00)
[2018-10-26 10:42] LABS: ANISOCYTOSIS 1+ (0-0); BAND NEUTROPHILS #M 1.9 10^3/ul (0.0-0.6); BAND NEUTROPHILS % (M) 6 % (0-4); ERYTHROBLAST% (NRBC) (M) 1 % (0-0); GIANT THROMBO% (M) 2 % (0-0); LYMPHOCYTES #M 2.8 10^3/ul (0.8-2.9); LYMPHOCYTES % (M) 9 % (15-51); MONOCYTE #M 3.1 10^3/ul (0.3-0.9); MONOCYTES % (M) 10 % (0-11); PLATELET ESTIMATE INCREASED; POLYCHROMASIA 2+ (0-0); PROMYELOCYTES #M 0.3 10^3/ul (0-0); PROMYELOCYTES % (M) 1 % (0-0); REACTIVE LYMPHOCYTES #M 0.3 10^3/ul (0.0-0.0); REACTIVE LYMPHOCYTES% (M) 1 % (0-0); SEG NEUT #M 23.8 10^3/ul (1.6-7.5); SEGMENTED NEUTROPHILS (M) % 73 % (39-77); SMUDGE%M 44 % (0-0)
[2018-10-26] MEDS: EPOETIN 10000 UNITS/1 ML INJ (ESRD) SC (13:32)
[2018-10-26] MEDS: MAGNESIUM SULFATE 2 GM/50 ML 50 ML IVPB (14:23)
[2018-10-26] MEDS: CALCITRIOL 1 MCG INJ IV (16:39)
[2018-10-27] MEDS: ALBUTEROL HFA 8 GM INHALER INH ×4 (01:28→19:52)
[2018-10-27] MEDS: IPRATROPIUM (HFA) 12.9 GM INHALER INH ×4 (01:28→19:52)
[2018-10-27] MEDS: INSULIN ASPART [NOVOLOG] 3 ML PEN SC ×4 (03:20→20:30)
[2018-10-27] MEDS: ACCU-CHEK XX (03:20)
[2018-10-27] MEDS: HYDROmorphONE 2 MG TAB PO ×4 (04:04→18:15)
[2018-10-27 05:06] LABS: ADD MAN DIFF? NO
[2018-10-27] MEDS: GABAPENTIN (50 MG/ML PO SYG) GTB ×3 (05:12→21:52)
[2018-10-27] MEDS: LANSOPRAZOLE 30 MG CAP GTB ×2 (05:12→17:35)
[2018-10-27 05:13] LABS: ABNORMAL IP MESSAGE 1; BASOPHIL # 0.1 10^3/ul (0.0-0.1); BASOPHILS % 0.4 % (0.0-2.0); HEMOGLOBIN 9.6 g/dl (14.0-18.0); LYMPHOCYTES # 0.9 10^3/ul (0.8-2.9); LYMPHOCYTES % 4.4 % (15.0-51.0); MEAN CORPUSCULAR VOLUME 93.7 fl (82.0-101.0); MEAN PLATELET VOLUME 10.6 fl (7.4-10.4); MONOCYTE # 1.6 10^3/ul (0.3-0.9); MONOCYTES % 7.5 % (0.0-11.0); NEUTROPHIL # 17.9 10^3/ul (1.6-7.5); NEUTROPHILS % 83.6 % (39.0-77.0); NUCLEATED RED BLOOD CELLS% 0.2 /100WBC (0.0-0.0); PLATELET COUNT 482 10^3/UL (140-415); POSITIVE DIFF @See below; RED BLOOD COUNT 3.31 10^6/ul (4.70-6.10); RED CELL DISTRIBUTION WIDTH 18.6 % (11.5-14.5)
[2018-10-27 05:13] LABS: WHITE BLOOD COUNT 21.4 10^3/ul (4.8-10.8)
[2018-10-27] MEDS: METHYLPREDNISOLONE 40 MG INJ IV ×3 (05:13→22:25)
[2018-10-27 05:44] LABS: ANION GAP 6 (5-13); BLOOD UREA NITROGEN 30 mg/dl (7-20); CALCIUM 6.2 mg/dl (8.4-10.2); CARBON DIOXIDE 36 mmol/L (21-31); CHLORIDE 92 mmol/L (97-110); CREATININE 0.43 mg/dl (0.61-1.24); Estimated GFR > 60 mL/min (>60); GLUCOSE 151 mg/dl (70-220); MAGNESIUM 2.4 mg/dl (1.7-2.5); PHOSPHORUS 5.7 mg/dl (2.5-4.9); POTASSIUM 5.5 mmol/L (3.5-5.1); SODIUM 134 mmol/L (135-144)
[2018-10-27 06:24] LABS: IONIZED CALCIUM 0.9 mmol/L (1.1-1.4)
[2018-10-27] MEDS: TRIMETHOPRIM/SULFAMETHOX (PO SYG) GTB (08:31)
[2018-10-27] MEDS: CA CARBONATE (250 MG/ML) 5ML CUP GTB ×3 (08:31→20:31)
[2018-10-27] MEDS: QUETIAPINE 25 MG TAB GTB ×2 (08:31→20:32)
[2018-10-27] MEDS: HYDROXYCHLOROQUINE 200 MG TAB PO ×2 (08:31→20:32)
[2018-10-27] MEDS: LEVETIRACETAM (100 MG/ML) 5ML CUP GTB ×2 (08:31→20:31)
[2018-10-27] MEDS: MAGNESIUM OXIDE 400 MG TAB GTB ×2 (08:31→20:32)
[2018-10-27] MEDS: METOCLOPRAMIDE 10 MG INJ IV ×3 (08:31→20:33)
[2018-10-27] MEDS: DULOXETINE 30 MG CAP DR PO (08:32)
[2018-10-27] MEDS: L ACIDOPHIL/B LACTIS/B LONGUM CAPSULE GTB ×2 (08:32→20:32)
[2018-10-27] MEDS: CALCITRIOL 0.25 MCG CAP PO (08:32)
[2018-10-27] MEDS: LORAZEPAM 1 MG TAB GTB ×4 (08:32→20:37)
[2018-10-27] MEDS: LINAGLIPTIN 5 MG TABLET PO (08:33)
[2018-10-27] MEDS: MICONAZOLE 2% 30 GM CR TOP ×2 (08:34→20:31)
[2018-10-27] MEDS: BALSAM PERU/CASTOR OIL 60 GM TUBE TOP ×2 (08:35→20:31)
[2018-10-27 10:03] LABS: AADO2 Arterial 334.2 mmHg (7.0-24.0); Allen Test ACCEPTAB; Arterial Base Excess 6.3 mmol/L (-3.0-3); Arterial Blood Gas Oxygen Sat 97.1 mmHG (95.0-98.0); Arterial COHb 0.7 % (0.0-3.0); Arterial Fraction of Oxyhgb 96.1 % (93.0-99.0); Arterial HCO3 32.6 mmol/L (22.0-26.0); Arterial MetHb 0.3 % (0.0-1.5); Arterial pCO2 56.6 mmhg (35-45); MODE VENT - AC; Site Left Radial
[2018-10-27] MEDS: CALCITRIOL 1 MCG INJ IV (15:37)
[2018-10-27] MEDS: ONDANSETRON 4 MG INJ IV (16:37)
[2018-10-28] MEDS: IPRATROPIUM (HFA) 12.9 GM INHALER INH ×4 (01:54→19:43)
[2018-10-28] MEDS: ALBUTEROL HFA 8 GM INHALER INH ×4 (01:54→19:43)
[2018-10-28] MEDS: HYDROmorphONE 2 MG TAB PO ×4 (02:03→22:32)
[2018-10-28] MEDS: ACCU-CHEK XX (02:03)
[2018-10-28] MEDS: INSULIN ASPART [NOVOLOG] 3 ML PEN SC ×4 (02:11→20:47)
[2018-10-28] MEDS: LORAZEPAM 1 MG TAB GTB ×4 (03:20→20:52)
[2018-10-28] MEDS: ZOLPIDEM 5 MG TAB PO (03:20)
[2018-10-28 05:30] LABS: ADD MAN DIFF? NO
[2018-10-28] MEDS: LANSOPRAZOLE 30 MG CAP GTB ×2 (05:31→17:27)
[2018-10-28] MEDS: GABAPENTIN (50 MG/ML PO SYG) GTB ×3 (05:31→21:03)
[2018-10-28] MEDS: METHYLPREDNISOLONE 40 MG INJ IV ×3 (05:31→22:20)
[2018-10-28 05:38] LABS: BASOPHILS % 0.2 % (0.0-2.0); HEMATOCRIT 31.4 % (42.0-52.0); HEMOGLOBIN 9.7 g/dl (14.0-18.0); LYMPHOCYTES # 0.8 10^3/ul (0.8-2.9); LYMPHOCYTES % 4.7 % (15.0-51.0); MEAN CORPUSCULAR HEMOGLOBIN 28.4 pg (29.0-33.0); MEAN CORPUSCULAR HGB CONC 30.9 g/dl (32.0-37.0); MEAN CORPUSCULAR VOLUME 92.1 fl (82.0-101.0); MEAN PLATELET VOLUME 10.9 fl (7.4-10.4); MONOCYTE # 1.4 10^3/ul (0.3-0.9); MONOCYTES % 7.8 % (0.0-11.0); NEUTROPHIL # 14.4 10^3/ul (1.6-7.5); PLATELET COUNT 457 10^3/UL (140-415); RED BLOOD COUNT 3.41 10^6/ul (4.70-6.10); RED CELL DISTRIBUTION WIDTH 18.6 % (11.5-14.5)
[2018-10-28 05:38] LABS: WHITE BLOOD COUNT 17.4 10^3/ul (4.8-10.8)
[2018-10-28 06:03] LABS: ANION GAP 6 (5-13); BLOOD UREA NITROGEN 30 mg/dl (7-20); CARBON DIOXIDE 37 mmol/L (21-31); CHLORIDE 90 mmol/L (97-110); Estimated GFR > 60 mL/min (>60); GLUCOSE 149 mg/dl (70-220); MAGNESIUM 1.7 mg/dl (1.7-2.5); PHOSPHORUS 5.9 mg/dl (2.5-4.9); POTASSIUM 4.7 mmol/L (3.5-5.1); SODIUM 133 mmol/L (135-144)
[2018-10-28 06:22] LABS: CALCIUM 5.9 mg/dl (8.4-10.2)
[2018-10-28] MEDS: CALCITRIOL 0.25 MCG CAP PO ×2 (08:08→20:52)
[2018-10-28] MEDS: QUETIAPINE 25 MG TAB GTB ×2 (08:10→20:51)
[2018-10-28] MEDS: MAGNESIUM OXIDE 400 MG TAB GTB ×2 (08:10→20:52)
[2018-10-28] MEDS: HYDROXYCHLOROQUINE 200 MG TAB PO ×2 (08:10→20:51)
[2018-10-28] MEDS: DULOXETINE 30 MG CAP DR PO (08:12)
[2018-10-28] MEDS: LEVETIRACETAM (100 MG/ML) 5ML CUP GTB ×2 (08:12→20:52)
[2018-10-28] MEDS: TRIMETHOPRIM/SULFAMETHOX (PO SYG) GTB (08:13)
[2018-10-28] MEDS: CA CARBONATE (250 MG/ML) 5ML CUP GTB ×3 (08:13→20:52)
[2018-10-28] MEDS: METOCLOPRAMIDE 10 MG INJ IV ×3 (08:14→20:52)
[2018-10-28] MEDS: L ACIDOPHIL/B LACTIS/B LONGUM CAPSULE GTB ×2 (08:15→20:51)
[2018-10-28] MEDS: BALSAM PERU/CASTOR OIL 60 GM TUBE TOP ×2 (08:16→21:04)
[2018-10-28] MEDS: MICONAZOLE 2% 30 GM CR TOP ×2 (08:16→21:04)
[2018-10-28] MEDS: LINAGLIPTIN 5 MG TABLET PO (08:20)
[2018-10-28] MEDS: OXYCODONE/ACETAMINOPHEN (5/325) TAB PO (13:50)
[2018-10-28] MEDS: CALCIUM GLUCONATE 10% 2 GM in DEXTROSE 5% 100 ML IVPB (20:53)
[2018-10-28] MEDS: CALCITRIOL 1 MCG INJ IV (20:53)
[2018-10-28] MEDS: FENTAnyl PATCH 50 MCG/HR TRANSDERM (23:24)
[2018-10-29] MEDS: ALBUTEROL HFA 8 GM INHALER INH ×4 (01:53→20:44)
[2018-10-29] MEDS: IPRATROPIUM (HFA) 12.9 GM INHALER INH ×4 (01:53→20:44)
[2018-10-29] MEDS: ACCU-CHEK XX (02:01)
[2018-10-29] MEDS: LORAZEPAM 1 MG TAB GTB ×4 (02:01→21:13)
[2018-10-29] MEDS: INSULIN ASPART [NOVOLOG] 3 ML PEN SC ×4 (02:27→19:55)
[2018-10-29] MEDS: ZOLPIDEM 5 MG TAB PO (02:34)
[2018-10-29] MEDS: HYDROmorphONE 2 MG TAB PO ×4 (02:37→21:15)
[2018-10-29 05:17] LABS: WHITE BLOOD COUNT 24.6 10^3/ul (4.8-10.8)
[2018-10-29 05:17] LABS: ABNORMAL IP MESSAGE 1; ADD MAN DIFF? NO; BASOPHIL # 0.1 10^3/ul (0.0-0.1); BASOPHILS % 0.3 % (0.0-2.0); HEMATOCRIT 31.9 % (42.0-52.0); HEMOGLOBIN 9.8 g/dl (14.0-18.0); LYMPHOCYTES # 1.1 10^3/ul (0.8-2.9); LYMPHOCYTES % 4.3 % (15.0-51.0); MEAN CORPUSCULAR HEMOGLOBIN 28.4 pg (29.0-33.0); MEAN CORPUSCULAR HGB CONC 30.7 g/dl (32.0-37.0); MEAN CORPUSCULAR VOLUME 92.5 fl (82.0-101.0); MONOCYTE # 1.9 10^3/ul (0.3-0.9); MONOCYTES % 7.9 % (0.0-11.0); NEUTROPHIL # 20.7 10^3/ul (1.6-7.5); NEUTROPHILS % 84.4 % (39.0-77.0); PLATELET COUNT 490 10^3/UL (140-415); POSITIVE DIFF @See below; RED BLOOD COUNT 3.45 10^6/ul (4.70-6.10); RED CELL DISTRIBUTION WIDTH 18.6 % (11.5-14.5)
[2018-10-29] MEDS: LANSOPRAZOLE 30 MG CAP GTB ×2 (05:31→17:32)
[2018-10-29] MEDS: GABAPENTIN (50 MG/ML PO SYG) GTB ×3 (05:32→21:22)
[2018-10-29] MEDS: METHYLPREDNISOLONE 40 MG INJ IV ×3 (05:32→21:22)
[2018-10-29 06:09] LABS: ANION GAP 8 (5-13)
[2018-10-29 06:10] LABS: BLOOD UREA NITROGEN 33 mg/dl (7-20); CALCIUM 6.9 mg/dl (8.4-10.2); CARBON DIOXIDE 35 mmol/L (21-31); CHLORIDE 92 mmol/L (97-110); CREATININE 0.43 mg/dl (0.61-1.24); Estimated GFR > 60 mL/min (>60); GLUCOSE 183 mg/dl (70-220); MAGNESIUM 1.6 mg/dl (1.7-2.5); PHOSPHORUS 4.8 mg/dl (2.5-4.9); POTASSIUM 4.4 mmol/L (3.5-5.1); SODIUM 135 mmol/L (135-144)
[2018-10-29] MEDS: METOCLOPRAMIDE 10 MG INJ IV ×3 (08:44→21:13)
[2018-10-29] MEDS: BALSAM PERU/CASTOR OIL 60 GM TUBE TOP ×2 (08:44→21:15)
[2018-10-29] MEDS: MICONAZOLE 2% 30 GM CR TOP ×2 (08:44→21:15)
[2018-10-29] MEDS: TRIMETHOPRIM/SULFAMETHOX (PO SYG) GTB (08:44)
[2018-10-29] MEDS: CA CARBONATE (250 MG/ML) 5ML CUP GTB ×3 (08:44→21:13)
[2018-10-29] MEDS: LEVETIRACETAM (100 MG/ML) 5ML CUP GTB ×2 (08:44→21:13)
[2018-10-29] MEDS: L ACIDOPHIL/B LACTIS/B LONGUM CAPSULE GTB ×2 (08:45→21:30)
[2018-10-29] MEDS: QUETIAPINE 25 MG TAB GTB (08:45)
[2018-10-29] MEDS: CALCITRIOL 0.25 MCG CAP PO ×2 (08:45→21:30)
[2018-10-29] MEDS: HYDROXYCHLOROQUINE 200 MG TAB PO ×2 (08:45→21:14)
[2018-10-29] MEDS: DULOXETINE 30 MG CAP DR PO (08:45)
[2018-10-29] MEDS: MAGNESIUM OXIDE 400 MG TAB GTB ×2 (08:45→21:13)
[2018-10-29] MEDS: MAGNESIUM SULFATE 2 GM/50 ML 50 ML IVPB (08:49)
[2018-10-29] MEDS: LINAGLIPTIN 5 MG TABLET PO (08:49)
[2018-10-29] MEDS: OXYCODONE/ACETAMINOPHEN (5/325) TAB PO (12:47)
[2018-10-29] MEDS: QUETIAPINE 100 MG TAB GTB (21:13)
[2018-10-30] MEDS: ALBUTEROL HFA 8 GM INHALER INH ×4 (01:23→19:54)
[2018-10-30] MEDS: IPRATROPIUM (HFA) 12.9 GM INHALER INH ×4 (01:24→19:55)
[2018-10-30] MEDS: INSULIN ASPART [NOVOLOG] 3 ML PEN SC ×4 (02:00→20:55)
[2018-10-30] MEDS: LORAZEPAM 1 MG TAB GTB ×4 (02:07→20:28)
[2018-10-30] MEDS: HYDROmorphONE 2 MG TAB PO ×3 (02:08→18:07)
[2018-10-30] MEDS: ACCU-CHEK XX (02:13)
[2018-10-30] MEDS: GABAPENTIN (50 MG/ML PO SYG) GTB ×3 (05:41→22:12)
[2018-10-30] MEDS: METHYLPREDNISOLONE 40 MG INJ IV ×3 (05:41→22:11)
[2018-10-30] MEDS: LANSOPRAZOLE 30 MG CAP GTB ×2 (05:41→18:07)
[2018-10-30 06:22] LABS: ADD MAN DIFF? NO
[2018-10-30 06:29] LABS: WHITE BLOOD COUNT 21.9 10^3/ul (4.8-10.8)
[2018-10-30 06:29] LABS: ABNORMAL IP MESSAGE 1; BASOPHIL # 0.1 10^3/ul (0.0-0.1); BASOPHILS % 0.3 % (0.0-2.0); HEMATOCRIT 32.4 % (42.0-52.0); LYMPHOCYTES # 1.3 10^3/ul (0.8-2.9); LYMPHOCYTES % 5.8 % (15.0-51.0); MEAN CORPUSCULAR HEMOGLOBIN 28.9 pg (29.0-33.0); MEAN CORPUSCULAR HGB CONC 30.9 g/dl (32.0-37.0); MEAN CORPUSCULAR VOLUME 93.6 fl (82.0-101.0); MEAN PLATELET VOLUME 11.1 fl (7.4-10.4); MONOCYTE # 3.3 10^3/ul (0.3-0.9); MONOCYTES % 14.9 % (0.0-11.0); NEUTROPHIL # 16.7 10^3/ul (1.6-7.5); NEUTROPHILS % 76.1 % (39.0-77.0); PLATELET COUNT 464 10^3/UL (140-415); POSITIVE DIFF @See below; RED BLOOD COUNT 3.46 10^6/ul (4.70-6.10); RED CELL DISTRIBUTION WIDTH 18.8 % (11.5-14.5)
[2018-10-30 07:00] LABS: ALANINE AMINOTRANSFERASE 28 IU/L (13-69); ALBUMIN 2.9 g/dl (3.3-4.9); ALBUMIN/GLOBULIN RATIO 1.16; ALKALINE PHOSPHATASE 123 IU/L (42-121); ANION GAP 6 (5-13); ASPARTATE AMINO TRANSFERASE 29 IU/L (15-46); BILIRUBIN,INDIRECT 0.2 mg/dl (0-1.1); BILIRUBIN,TOTAL 0.2 mg/dl (0.2-1.3); BLOOD UREA NITROGEN 31 mg/dl (7-20); CALCIUM 6.5 mg/dl (8.4-10.2); CARBON DIOXIDE 36 mmol/L (21-31); CHLORIDE 95 mmol/L (97-110); CREATININE 0.43 mg/dl (0.61-1.24); Estimated GFR > 60 mL/min (>60); GLUCOSE 103 mg/dl (70-220); MAGNESIUM 1.9 mg/dl (1.7-2.5); POTASSIUM 4.2 mmol/L (3.5-5.1); SODIUM 137 mmol/L (135-144); TOTAL PROTEIN 5.4 g/dl (6.1-8.1)
[2018-10-30 07:02] LABS: IONIZED CALCIUM 0.9 mmol/L (1.1-1.4)
[2018-10-30] MEDS: MICONAZOLE 2% 30 GM CR TOP ×2 (09:54→20:22)
[2018-10-30] MEDS: LEVETIRACETAM (100 MG/ML) 5ML CUP GTB ×2 (09:54→20:23)
[2018-10-30] MEDS: CALCIUM GLUCONATE 10% 2 GM in DEXTROSE 5% 100 ML IVPB (09:54)
[2018-10-30] MEDS: CA CARBONATE (250 MG/ML) 5ML CUP GTB ×3 (09:54→20:23)
[2018-10-30] MEDS: TRIMETHOPRIM/SULFAMETHOX (PO SYG) GTB (09:54)
[2018-10-30] MEDS: BALSAM PERU/CASTOR OIL 60 GM TUBE TOP ×2 (09:54→20:22)
[2018-10-30] MEDS: CALCITRIOL 1 MCG INJ IV (09:55)
[2018-10-30] MEDS: MAGNESIUM OXIDE 400 MG TAB GTB ×2 (09:55→20:23)
[2018-10-30] MEDS: L ACIDOPHIL/B LACTIS/B LONGUM CAPSULE GTB ×2 (09:55→20:25)
[2018-10-30] MEDS: HYDROXYCHLOROQUINE 200 MG TAB PO ×2 (09:55→20:26)
[2018-10-30] MEDS: LISINOPRIL 5 MG TAB PO (09:55)
[2018-10-30] MEDS: METOCLOPRAMIDE 10 MG INJ IV ×3 (09:55→20:25)
[2018-10-30] MEDS: QUETIAPINE 100 MG TAB GTB ×2 (09:55→20:25)
[2018-10-30] MEDS: DULOXETINE 30 MG CAP DR PO (09:56)
[2018-10-30] MEDS: CALCITRIOL 0.25 MCG CAP PO ×3 (09:56→20:23)
[2018-10-30] MEDS: LINAGLIPTIN 5 MG TABLET PO (09:56)
[2018-10-30] MEDS: ERGOCALCIFEROL (8000 UNITS/ML PO SYG) PEG (09:59)
[2018-10-30] MEDS: EPOETIN 10000 UNITS/1 ML INJ (ESRD) SC (13:05)
[2018-10-30] MEDS: DIGOXIN 500 MCG INJ IV (15:56)
[2018-10-30] MEDS: DIPHENHYDRAMINE 2.5 MG/ML 5ML CUP GTB (20:25)
[2018-10-31] MEDS: IPRATROPIUM (HFA) 12.9 GM INHALER INH ×4 (01:10→20:07)
[2018-10-31] MEDS: ALBUTEROL HFA 8 GM INHALER INH ×4 (01:10→20:07)
[2018-10-31] MEDS: INSULIN ASPART [NOVOLOG] 3 ML PEN SC ×4 (01:22→19:55)
[2018-10-31] MEDS: ACCU-CHEK XX (01:23)
[2018-10-31] MEDS: LORAZEPAM 1 MG TAB GTB ×4 (03:11→21:30)
[2018-10-31] MEDS: HYDROmorphONE 2 MG TAB PO ×2 (03:46→19:11)
[2018-10-31 04:48] LABS: ADD MAN DIFF? NO
[2018-10-31 04:51] LABS: ABNORMAL IP MESSAGE 1; BASOPHIL # 0.1 10^3/ul (0.0-0.1); BASOPHILS % 0.3 % (0.0-2.0); HEMATOCRIT 30.9 % (42.0-52.0); HEMOGLOBIN 9.7 g/dl (14.0-18.0); LYMPHOCYTES # 0.8 10^3/ul (0.8-2.9); LYMPHOCYTES % 3.4 % (15.0-51.0); MEAN CORPUSCULAR HEMOGLOBIN 29.1 pg (29.0-33.0); MEAN CORPUSCULAR HGB CONC 31.4 g/dl (32.0-37.0); MEAN CORPUSCULAR VOLUME 92.8 fl (82.0-101.0); MONOCYTE # 0.6 10^3/ul (0.3-0.9); MONOCYTES % 2.5 % (0.0-11.0); NEUTROPHIL # 20.5 10^3/ul (1.6-7.5); NEUTROPHILS % 90.1 % (39.0-77.0); PLATELET COUNT 420 10^3/UL (140-415); POSITIVE DIFF @See below; RED BLOOD COUNT 3.33 10^6/ul (4.70-6.10); RED CELL DISTRIBUTION WIDTH 18.7 % (11.5-14.5)
[2018-10-31 04:51] LABS: WHITE BLOOD COUNT 22.8 10^3/ul (4.8-10.8)
[2018-10-31] MEDS: METHYLPREDNISOLONE 40 MG INJ IV ×3 (05:00→21:31)
[2018-10-31] MEDS: GABAPENTIN (50 MG/ML PO SYG) GTB ×3 (05:00→23:08)
[2018-10-31] MEDS: LANSOPRAZOLE 30 MG CAP GTB ×2 (05:00→17:36)
[2018-10-31 05:23] LABS: ALANINE AMINOTRANSFERASE 33 IU/L (13-69); ALBUMIN 2.8 g/dl (3.3-4.9); ALBUMIN/GLOBULIN RATIO 1.12; ALKALINE PHOSPHATASE 137 IU/L (42-121); ANION GAP 9 (5-13); ASPARTATE AMINO TRANSFERASE 39 IU/L (15-46); BILIRUBIN,INDIRECT 0.2 mg/dl (0-1.1); BILIRUBIN,TOTAL 0.2 mg/dl (0.2-1.3); BLOOD UREA NITROGEN 28 mg/dl (7-20); CALCIUM 7.3 mg/dl (8.4-10.2); CARBON DIOXIDE 34 mmol/L (21-31); CHLORIDE 92 mmol/L (97-110); CREATININE 0.39 mg/dl (0.61-1.24); Estimated GFR > 60 mL/min (>60); GLUCOSE 123 mg/dl (70-220); POTASSIUM 4.9 mmol/L (3.5-5.1); SODIUM 135 mmol/L (135-144); TOTAL PROTEIN 5.3 g/dl (6.1-8.1)
[2018-10-31 05:24] LABS: PHOSPHORUS 5.1 mg/dl (2.5-4.9)
[2018-10-31 05:24] LABS: MAGNESIUM 1.6 mg/dl (1.7-2.5)
[2018-10-31] MEDS ORDERED: MAGNESIUM SULFATE 1 GM/D5W 100 ML (08:29)
[2018-10-31] MEDS: QUETIAPINE 100 MG TAB GTB ×2 (08:38→20:28)
[2018-10-31] MEDS: LISINOPRIL 5 MG TAB PO (08:39)
[2018-10-31] MEDS: CALCITRIOL 0.25 MCG CAP PO ×3 (08:39→20:28)
[2018-10-31] MEDS: HYDROXYCHLOROQUINE 200 MG TAB PO ×2 (08:39→20:28)
[2018-10-31] MEDS: MAGNESIUM OXIDE 400 MG TAB GTB ×2 (08:40→20:28)
[2018-10-31] MEDS: L ACIDOPHIL/B LACTIS/B LONGUM CAPSULE GTB ×2 (08:40→20:28)
[2018-10-31] MEDS: LINAGLIPTIN 5 MG TABLET PO (08:40)
[2018-10-31] MEDS: DULOXETINE 30 MG CAP DR PO (08:40)
[2018-10-31] MEDS: CA CARBONATE (250 MG/ML) 5ML CUP GTB ×3 (08:43→20:29)
[2018-10-31] MEDS: LEVETIRACETAM (100 MG/ML) 5ML CUP GTB ×2 (08:43→20:28)
[2018-10-31] MEDS: METOCLOPRAMIDE 10 MG INJ IV ×3 (08:43→20:28)
[2018-10-31] MEDS: TRIMETHOPRIM/SULFAMETHOX (PO SYG) GTB (08:43)
[2018-10-31] MEDS: MICONAZOLE 2% 30 GM CR TOP ×2 (08:46→20:30)
[2018-10-31] MEDS: BALSAM PERU/CASTOR OIL 60 GM TUBE TOP ×2 (08:46→20:30)
[2018-10-31] MEDS: MAGNESIUM SULFATE 3 GM in DEXTROSE 5% 100 ML IVPB (10:11)
[2018-10-31 14:02] LABS: PNEUM JIROVECCI SRC SPUTUM; PNEUMOCYSTIS JIROVECCI DFA NOT DETECTED
[2018-10-31] MEDS: FENTAnyl PATCH 50 MCG/HR TRANSDERM (21:32)
[2018-11-01] MEDS: HYDROmorphONE 2 MG TAB PO ×4 (00:15→23:59)
[2018-11-01] MEDS: IPRATROPIUM (HFA) 12.9 GM INHALER INH ×4 (01:06→19:33)
[2018-11-01] MEDS: ALBUTEROL HFA 8 GM INHALER INH ×4 (01:06→19:33)
[2018-11-01] MEDS: ACCU-CHEK XX (01:34)
[2018-11-01] MEDS: INSULIN ASPART [NOVOLOG] 3 ML PEN SC ×4 (02:03→19:59)
[2018-11-01] MEDS: LORAZEPAM 1 MG TAB GTB ×4 (03:32→20:43)
[2018-11-01 04:52] LABS: ADD MAN DIFF? NO
[2018-11-01 04:59] LABS: WHITE BLOOD COUNT 24.1 10^3/ul (4.8-10.8)
[2018-11-01 04:59] LABS: ABNORMAL IP MESSAGE 1; BASOPHIL # 0.1 10^3/ul (0.0-0.1); BASOPHILS % 0.2 % (0.0-2.0); HEMOGLOBIN 9.2 g/dl (14.0-18.0); LYMPHOCYTES # 0.7 10^3/ul (0.8-2.9); MEAN CORPUSCULAR HEMOGLOBIN 28.5 pg (29.0-33.0); MEAN CORPUSCULAR HGB CONC 30.7 g/dl (32.0-37.0); MEAN CORPUSCULAR VOLUME 92.9 fl (82.0-101.0); MEAN PLATELET VOLUME 11.1 fl (7.4-10.4); MONOCYTE # 1.5 10^3/ul (0.3-0.9); MONOCYTES % 6.3 % (0.0-11.0); NEUTROPHIL # 21.1 10^3/ul (1.6-7.5); NEUTROPHILS % 87.7 % (39.0-77.0); PLATELET COUNT 414 10^3/UL (140-415); POSITIVE DIFF @See below; RED BLOOD COUNT 3.23 10^6/ul (4.70-6.10); RED CELL DISTRIBUTION WIDTH 18.7 % (11.5-14.5)
[2018-11-01 05:26] LABS: MAGNESIUM 1.9 mg/dl (1.7-2.5)
[2018-11-01] MEDS: METHYLPREDNISOLONE 40 MG INJ IV ×3 (05:31→21:33)
[2018-11-01] MEDS: LANSOPRAZOLE 30 MG CAP GTB ×2 (05:32→17:43)
[2018-11-01] MEDS: GABAPENTIN (50 MG/ML PO SYG) GTB ×3 (05:32→21:34)
[2018-11-01 05:33] LABS: ANION GAP 8 (5-13); BLOOD UREA NITROGEN 30 mg/dl (7-20); CARBON DIOXIDE 33 mmol/L (21-31); CHLORIDE 94 mmol/L (97-110); CREATININE 0.44 mg/dl (0.61-1.24); Estimated GFR > 60 mL/min (>60); GLUCOSE 165 mg/dl (70-220); POTASSIUM 4.4 mmol/L (3.5-5.1); SODIUM 135 mmol/L (135-144)
[2018-11-01] MEDS: CA CARBONATE (250 MG/ML) 5ML CUP GTB ×4 (08:30→20:42)
[2018-11-01] MEDS: LEVETIRACETAM (100 MG/ML) 5ML CUP GTB ×2 (08:31→20:42)
[2018-11-01] MEDS: CALCITRIOL 0.25 MCG CAP PO ×3 (08:31→20:43)
[2018-11-01] MEDS: DULOXETINE 30 MG CAP DR PO (08:31)
[2018-11-01] MEDS: LINAGLIPTIN 5 MG TABLET PO (08:33)
[2018-11-01] MEDS: LISINOPRIL 5 MG TAB PO (08:33)
[2018-11-01] MEDS: HYDROXYCHLOROQUINE 200 MG TAB PO ×2 (08:33→20:43)
[2018-11-01] MEDS: BALSAM PERU/CASTOR OIL 60 GM TUBE TOP ×2 (08:34→20:44)
[2018-11-01] MEDS: MICONAZOLE 2% 30 GM CR TOP ×2 (08:34→20:44)
[2018-11-01] MEDS: METOCLOPRAMIDE 10 MG INJ IV ×3 (08:41→20:42)
[2018-11-01] MEDS: MAGNESIUM OXIDE 400 MG TAB GTB ×2 (08:41→20:43)
[2018-11-01] MEDS: L ACIDOPHIL/B LACTIS/B LONGUM CAPSULE GTB ×2 (08:41→20:46)
[2018-11-01] MEDS: TRIMETHOPRIM/SULFAMETHOX (PO SYG) GTB (08:41)
[2018-11-01] MEDS: QUETIAPINE 100 MG TAB GTB ×2 (08:41→20:43)
[2018-11-02] MEDS: ACCU-CHEK XX (01:46)
[2018-11-02] MEDS: INSULIN ASPART [NOVOLOG] 3 ML PEN SC ×4 (01:53→21:41)
[2018-11-02] MEDS: IPRATROPIUM (HFA) 12.9 GM INHALER INH ×4 (02:20→19:35)
[2018-11-02] MEDS: ALBUTEROL HFA 8 GM INHALER INH ×4 (02:20→19:35)
[2018-11-02] MEDS: LORAZEPAM 1 MG TAB GTB ×4 (03:46→21:01)
[2018-11-02] MEDS: GABAPENTIN (50 MG/ML PO SYG) GTB ×3 (05:08→21:01)
[2018-11-02] MEDS: LANSOPRAZOLE 30 MG CAP GTB ×2 (05:08→18:16)
[2018-11-02] MEDS: METHYLPREDNISOLONE 40 MG INJ IV ×3 (05:08→21:02)
[2018-11-02 05:53] LABS: ALANINE AMINOTRANSFERASE 36 IU/L (13-69); ALBUMIN 2.8 g/dl (3.3-4.9); ALBUMIN/GLOBULIN RATIO 1.12; ALKALINE PHOSPHATASE 118 IU/L (42-121); ANION GAP 7 (5-13); ASPARTATE AMINO TRANSFERASE 24 IU/L (15-46); BILIRUBIN,INDIRECT 0.1 mg/dl (0-1.1); BILIRUBIN,TOTAL 0.1 mg/dl (0.2-1.3); BLOOD UREA NITROGEN 33 mg/dl (7-20); CARBON DIOXIDE 34 mmol/L (21-31); CHLORIDE 92 mmol/L (97-110); CREATININE 0.44 mg/dl (0.61-1.24); Estimated GFR > 60 mL/min (>60); GLUCOSE 172 mg/dl (70-220); POTASSIUM 4.3 mmol/L (3.5-5.1); SODIUM 133 mmol/L (135-144); TOTAL PROTEIN 5.3 g/dl (6.1-8.1)
[2018-11-02] MEDS: HYDROXYCHLOROQUINE 200 MG TAB PO ×2 (08:34→20:53)
[2018-11-02] MEDS: TRIMETHOPRIM/SULFAMETHOX (PO SYG) GTB (08:34)
[2018-11-02] MEDS: LISINOPRIL 5 MG TAB PO (08:35)
[2018-11-02] MEDS: HYDROmorphONE 2 MG TAB PO ×3 (08:36→21:10)
[2018-11-02] MEDS: QUETIAPINE 100 MG TAB GTB ×2 (08:37→21:02)
[2018-11-02] MEDS: DULOXETINE 30 MG CAP DR PO (08:37)
[2018-11-02] MEDS: LINAGLIPTIN 5 MG TABLET PO (08:37)
[2018-11-02] MEDS: MAGNESIUM OXIDE 400 MG TAB GTB ×2 (08:38→20:52)
[2018-11-02] MEDS: L ACIDOPHIL/B LACTIS/B LONGUM CAPSULE GTB ×2 (08:38→21:02)
[2018-11-02] MEDS: LEVETIRACETAM (100 MG/ML) 5ML CUP GTB ×2 (08:39→20:52)
[2018-11-02] MEDS: METOCLOPRAMIDE 10 MG INJ IV ×3 (08:39→20:52)
[2018-11-02] MEDS: CA CARBONATE (250 MG/ML) 5ML CUP GTB ×4 (08:39→20:52)
[2018-11-02] MEDS: CALCITRIOL 0.25 MCG CAP PO ×2 (08:39→20:52)
[2018-11-02] MEDS: MICONAZOLE 2% 30 GM CR TOP ×2 (08:40→20:54)
[2018-11-02] MEDS: BALSAM PERU/CASTOR OIL 60 GM TUBE TOP ×2 (08:40→20:54)
[2018-11-02 10:33] LABS: AADO2 Arterial 303.8 mmHg (7.0-24.0); Allen Test ACCEPTAB; Arterial Base Excess 4.5 mmol/L (-3.0-3); Arterial Blood Gas Oxygen Sat 96.5 mmHG (95.0-98.0); Arterial COHb 0.2 % (0.0-3.0); Arterial MetHb 0.3 % (0.0-1.5); Arterial pCO2 56.7 mmhg (35-45); MODE VENT - AC; Site Left Radial
[2018-11-02] MEDS: EPOETIN 10000 UNITS/1 ML INJ (ESRD) SC (13:00)
[2018-11-03] MEDS: IPRATROPIUM (HFA) 12.9 GM INHALER INH ×4 (01:20→19:23)
[2018-11-03] MEDS: ALBUTEROL HFA 8 GM INHALER INH ×4 (01:20→19:22)
[2018-11-03] MEDS: ACCU-CHEK XX (01:47)
[2018-11-03] MEDS: INSULIN ASPART [NOVOLOG] 3 ML PEN SC ×4 (01:57→21:05)
[2018-11-03] MEDS: LORAZEPAM 1 MG TAB GTB ×4 (03:18→21:04)
[2018-11-03] MEDS: HYDROmorphONE 2 MG TAB PO ×3 (03:18→18:13)
[2018-11-03 05:36] LABS: ADD MAN DIFF? NO
[2018-11-03 05:43] LABS: WHITE BLOOD COUNT 19.1 10^3/ul (4.8-10.8)
[2018-11-03 05:43] LABS: ABNORMAL IP MESSAGE 1; BASOPHILS % 0.2 % (0.0-2.0); HEMATOCRIT 28.8 % (42.0-52.0); HEMOGLOBIN 8.9 g/dl (14.0-18.0); LYMPHOCYTES # 0.6 10^3/ul (0.8-2.9); MEAN CORPUSCULAR HEMOGLOBIN 29.1 pg (29.0-33.0); MEAN CORPUSCULAR HGB CONC 30.9 g/dl (32.0-37.0); MEAN CORPUSCULAR VOLUME 94.1 fl (82.0-101.0); MEAN PLATELET VOLUME 11.5 fl (7.4-10.4); MONOCYTE # 1.9 10^3/ul (0.3-0.9); MONOCYTES % 9.8 % (0.0-11.0); NEUTROPHILS % 83.8 % (39.0-77.0); PLATELET COUNT 319 10^3/UL (140-415); POSITIVE DIFF @See below; RED BLOOD COUNT 3.06 10^6/ul (4.70-6.10)
[2018-11-03] MEDS: GABAPENTIN (50 MG/ML PO SYG) GTB ×3 (05:45→20:53)
[2018-11-03] MEDS: LANSOPRAZOLE 30 MG CAP GTB ×2 (05:45→18:13)
[2018-11-03] MEDS: METHYLPREDNISOLONE 40 MG INJ IV ×3 (05:45→21:04)
[2018-11-03 06:04] LABS: ANION GAP 4 (5-13); BLOOD UREA NITROGEN 35 mg/dl (7-20); CALCIUM 7.2 mg/dl (8.4-10.2); CARBON DIOXIDE 36 mmol/L (21-31); CHLORIDE 92 mmol/L (97-110); Estimated GFR > 60 mL/min (>60); GLUCOSE 143 mg/dl (70-220); MAGNESIUM 1.7 mg/dl (1.7-2.5); PHOSPHORUS 3.8 mg/dl (2.5-4.9); POTASSIUM 4.6 mmol/L (3.5-5.1); SODIUM 132 mmol/L (135-144)
[2018-11-03] MEDS: LEVETIRACETAM (100 MG/ML) 5ML CUP GTB ×2 (09:40→20:52)
[2018-11-03] MEDS: DULOXETINE 30 MG CAP DR PO (09:40)
[2018-11-03] MEDS: CA CARBONATE (250 MG/ML) 5ML CUP GTB ×4 (09:40→20:52)
[2018-11-03] MEDS: QUETIAPINE 100 MG TAB GTB ×2 (09:41→20:53)
[2018-11-03] MEDS: MAGNESIUM OXIDE 400 MG TAB GTB ×2 (09:41→20:52)
[2018-11-03] MEDS: HYDROXYCHLOROQUINE 200 MG TAB PO ×2 (09:41→20:53)
[2018-11-03] MEDS: LISINOPRIL 5 MG TAB PO (09:41)
[2018-11-03] MEDS: L ACIDOPHIL/B LACTIS/B LONGUM CAPSULE GTB ×2 (09:41→20:52)
[2018-11-03] MEDS: TRIMETHOPRIM/SULFAMETHOX (PO SYG) GTB (09:42)
[2018-11-03] MEDS: LINAGLIPTIN 5 MG TABLET PO (09:42)
[2018-11-03] MEDS: METOCLOPRAMIDE 10 MG INJ IV ×3 (09:42→20:52)
[2018-11-03] MEDS: CALCITRIOL 0.25 MCG CAP PO ×2 (09:42→20:53)
[2018-11-03] MEDS: BALSAM PERU/CASTOR OIL 60 GM TUBE TOP (09:43)
[2018-11-03] MEDS: MICONAZOLE 2% 30 GM CR TOP ×2 (09:43→20:55)
[2018-11-03 13:27] LABS: NIL 0.01 IU/mL; QUANTIFERON(R)-TB GOLD NEGATIVE (NEGATIVE)
[2018-11-04] MEDS: ACCU-CHEK XX (02:00)
[2018-11-04] MEDS: ALBUTEROL HFA 8 GM INHALER INH ×4 (02:01→19:51)
[2018-11-04] MEDS: IPRATROPIUM (HFA) 12.9 GM INHALER INH ×4 (02:01→19:51)
[2018-11-04] MEDS: FENTAnyl PATCH 50 MCG/HR TRANSDERM (02:19)
[2018-11-04] MEDS: BALSAM PERU/CASTOR OIL 60 GM TUBE TOP ×3 (02:20→20:23)
[2018-11-04] MEDS: INSULIN ASPART [NOVOLOG] 3 ML PEN SC ×4 (02:29→20:35)
[2018-11-04] MEDS: LORAZEPAM 1 MG TAB GTB ×4 (03:17→20:22)
[2018-11-04 05:40] LABS: ADD MAN DIFF? NO
[2018-11-04] MEDS: LANSOPRAZOLE 30 MG CAP GTB ×2 (05:41→17:20)
[2018-11-04] MEDS: HYDROmorphONE 2 MG TAB PO ×3 (05:41→20:22)
[2018-11-04] MEDS: GABAPENTIN (50 MG/ML PO SYG) GTB ×3 (05:41→20:25)
[2018-11-04] MEDS: METHYLPREDNISOLONE 40 MG INJ IV ×2 (05:41→13:25)
[2018-11-04 05:50] LABS: ABNORMAL IP MESSAGE 1; BASOPHIL # 0.1 10^3/ul (0.0-0.1); BASOPHILS % 0.5 % (0.0-2.0); HEMATOCRIT 30.9 % (42.0-52.0); HEMOGLOBIN 9.6 g/dl (14.0-18.0); LYMPHOCYTES # 0.7 10^3/ul (0.8-2.9); LYMPHOCYTES % 3.2 % (15.0-51.0); MEAN CORPUSCULAR HEMOGLOBIN 29.3 pg (29.0-33.0); MEAN CORPUSCULAR HGB CONC 31.1 g/dl (32.0-37.0); MEAN CORPUSCULAR VOLUME 94.2 fl (82.0-101.0); MEAN PLATELET VOLUME 11.9 fl (7.4-10.4); MONOCYTE # 2.1 10^3/ul (0.3-0.9); MONOCYTES % 9.6 % (0.0-11.0); NEUTROPHIL # 18.1 10^3/ul (1.6-7.5); NEUTROPHILS % 81.7 % (39.0-77.0); PLATELET COUNT 351 10^3/UL (140-415); POSITIVE DIFF @See below; RED BLOOD COUNT 3.28 10^6/ul (4.70-6.10); RED CELL DISTRIBUTION WIDTH 17.7 % (11.5-14.5)
[2018-11-04 05:50] LABS: WHITE BLOOD COUNT 22.1 10^3/ul (4.8-10.8)
[2018-11-04 06:25] LABS: ANION GAP 5 (5-13); BLOOD UREA NITROGEN 37 mg/dl (7-20); CALCIUM 7.9 mg/dl (8.4-10.2); CARBON DIOXIDE 35 mmol/L (21-31); CHLORIDE 91 mmol/L (97-110); CREATININE 0.37 mg/dl (0.61-1.24); Estimated GFR > 60 mL/min (>60); GLUCOSE 118 mg/dl (70-220); MAGNESIUM 1.7 mg/dl (1.7-2.5); PHOSPHORUS 3.5 mg/dl (2.5-4.9); POTASSIUM 4.4 mmol/L (3.5-5.1); SODIUM 131 mmol/L (135-144)
[2018-11-04] MEDS: LEVETIRACETAM (100 MG/ML) 5ML CUP GTB ×2 (08:16→20:20)
[2018-11-04] MEDS: DULOXETINE 30 MG CAP DR PO (08:17)
[2018-11-04] MEDS: HYDROXYCHLOROQUINE 200 MG TAB PO ×2 (08:17→20:21)
[2018-11-04] MEDS: QUETIAPINE 100 MG TAB GTB ×2 (08:17→20:21)
[2018-11-04] MEDS: MAGNESIUM OXIDE 400 MG TAB GTB ×2 (08:17→20:20)
[2018-11-04] MEDS: CALCITRIOL 0.25 MCG CAP PO ×2 (08:17→20:20)
[2018-11-04] MEDS: LISINOPRIL 5 MG TAB PO (08:19)
[2018-11-04] MEDS: MICONAZOLE 2% 30 GM CR TOP ×2 (08:20→20:24)
[2018-11-04] MEDS: LINAGLIPTIN 5 MG TABLET PO (08:20)
[2018-11-04] MEDS: TRIMETHOPRIM/SULFAMETHOX (PO SYG) GTB (08:21)
[2018-11-04] MEDS: METOCLOPRAMIDE 10 MG INJ IV ×3 (08:31→20:20)
[2018-11-04] MEDS: L ACIDOPHIL/B LACTIS/B LONGUM CAPSULE GTB ×2 (08:31→20:20)
[2018-11-04] MEDS: CA CARBONATE (250 MG/ML) 5ML CUP GTB ×4 (09:00→20:20)
[2018-11-04] MEDS: DIGOXIN 500 MCG INJ IV (09:55)
[2018-11-05] MEDS: IPRATROPIUM (HFA) 12.9 GM INHALER INH ×4 (01:25→20:08)
[2018-11-05] MEDS: ALBUTEROL HFA 8 GM INHALER INH ×4 (01:25→20:08)
[2018-11-05] MEDS: ACCU-CHEK XX (02:00)
[2018-11-05] MEDS: HYDROmorphONE 2 MG TAB PO ×3 (02:04→16:34)
[2018-11-05] MEDS: SOD CHLORIDE 0.9% 500 ML IV (02:05)
[2018-11-05] MEDS: INSULIN ASPART [NOVOLOG] 3 ML PEN SC ×4 (02:15→20:00)
[2018-11-05] MEDS: LORAZEPAM 1 MG TAB GTB ×4 (02:17→20:17)
[2018-11-05] MEDS: LANSOPRAZOLE 30 MG CAP GTB ×2 (05:08→17:05)
[2018-11-05] MEDS: GABAPENTIN (50 MG/ML PO SYG) GTB ×3 (05:08→22:47)
[2018-11-05 05:47] LABS: ADD MAN DIFF? NO
[2018-11-05 05:52] LABS: ABNORMAL IP MESSAGE 1; BASOPHIL # 0.1 10^3/ul (0.0-0.1); BASOPHILS % 0.5 % (0.0-2.0); HEMATOCRIT 28.6 % (42.0-52.0); HEMOGLOBIN 8.8 g/dl (14.0-18.0); LYMPHOCYTES # 0.8 10^3/ul (0.8-2.9); MEAN CORPUSCULAR HEMOGLOBIN 29.2 pg (29.0-33.0); MEAN CORPUSCULAR HGB CONC 30.8 g/dl (32.0-37.0); MONOCYTE # 2.7 10^3/ul (0.3-0.9); MONOCYTES % 10.5 % (0.0-11.0); NEUTROPHIL # 20.8 10^3/ul (1.6-7.5); NEUTROPHILS % 81.7 % (39.0-77.0); PLATELET COUNT 309 10^3/UL (140-415); POSITIVE DIFF @See below; RED BLOOD COUNT 3.01 10^6/ul (4.70-6.10); RED CELL DISTRIBUTION WIDTH 18.2 % (11.5-14.5)
[2018-11-05 05:52] LABS: WHITE BLOOD COUNT 25.5 10^3/ul (4.8-10.8)
[2018-11-05 06:23] LABS: ANION GAP 4 (5-13); BLOOD UREA NITROGEN 33 mg/dl (7-20); CALCIUM 7.6 mg/dl (8.4-10.2); CARBON DIOXIDE 34 mmol/L (21-31); CHLORIDE 95 mmol/L (97-110); CREATININE 0.36 mg/dl (0.61-1.24); Estimated GFR > 60 mL/min (>60); GLUCOSE 125 mg/dl (70-220); MAGNESIUM 1.7 mg/dl (1.7-2.5); PHOSPHORUS 3.6 mg/dl (2.5-4.9); POTASSIUM 4.1 mmol/L (3.5-5.1); SODIUM 133 mmol/L (135-144)
[2018-11-05] MEDS: LEVETIRACETAM (100 MG/ML) 5ML CUP GTB ×2 (08:20→20:17)
[2018-11-05] MEDS: METOCLOPRAMIDE 10 MG INJ IV ×3 (08:20→20:17)
[2018-11-05] MEDS: L ACIDOPHIL/B LACTIS/B LONGUM CAPSULE GTB ×2 (08:21→20:17)
[2018-11-05] MEDS: HYDROXYCHLOROQUINE 200 MG TAB PO ×2 (08:21→20:17)
[2018-11-05] MEDS: METHYLPREDNISOLONE 40 MG INJ IV (08:21)
[2018-11-05] MEDS: TRIMETHOPRIM/SULFAMETHOX (PO SYG) GTB (08:21)
[2018-11-05] MEDS: CA CARBONATE (250 MG/ML) 5ML CUP GTB ×4 (08:21→20:17)
[2018-11-05] MEDS: MAGNESIUM OXIDE 400 MG TAB GTB ×2 (08:22→20:17)
[2018-11-05] MEDS: LINAGLIPTIN 5 MG TABLET PO (08:22)
[2018-11-05] MEDS: DULOXETINE 30 MG CAP DR PO (08:22)
[2018-11-05] MEDS: QUETIAPINE 100 MG TAB GTB ×2 (08:23→20:17)
[2018-11-05] MEDS: LISINOPRIL 5 MG TAB PO (08:24)
[2018-11-05] MEDS: BALSAM PERU/CASTOR OIL 60 GM TUBE TOP ×2 (08:24→20:18)
[2018-11-05] MEDS: MICONAZOLE 2% 30 GM CR TOP ×2 (08:24→20:18)
[2018-11-05] MEDS: SOD CHLORIDE 0.9% 1,000 ML IV ×2 (09:44→23:35)
[2018-11-05] MEDS: CALCITRIOL 0.5 MCG CAPSULE PO ×2 (11:00→20:17)
[2018-11-05 13:46] LABS: CREATININE,URINE RANDOM 32.64 mg/dl (20-370)
[2018-11-05 13:46] LABS: SODIUM,URINE RANDOM 47 mmol/L (30-90)
[2018-11-05 14:01] LABS: ADD UMIC NO; UR ASCORBIC ACID NEGATIVE (NEGATIVE); UR BACTERIA MODERATE /HPF (NONE SEEN); UR BILIRUBIN (Dip) NEGATIVE (NEGATIVE); UR BLOOD (Dip) NEGATIVE (NEGATIVE); UR BUDDING YEAST MODERATE /HPF (NONE SEEN); UR CLARITY SLIGHTLY CLOUDY (CLEAR); UR COLOR YELLOW (YELLOW); UR GLUCOSE (Dip) NEGATIVE (NEGATIVE); UR KETONES (Dip) NEGATIVE (NEGATIVE); UR LEUKOCYTE ESTERASE (Dip) NEGATIVE Leu/ul (NEGATIVE); UR MUCUS MODERATE /HPF (NONE SEEN); UR NITRITE (Dip) NEGATIVE (NEGATIVE); UR RBC 13 /HPF (0-5); UR SPECIFIC GRAVITY (Dip) 1.024 (1.003-1.030); UR SQUAMOUS EPITHELIAL CELL FEW /HPF (FEW); UR TOTAL PROTEIN (Dip) NEGATIVE (NEGATIVE); UR UROBILINOGEN (Dip) NEGATIVE (NEGATIVE); UR WBC 3 /HPF (0-5)
[2018-11-05 14:30] LABS: OSMOLALITY,URINE 708 mOsm/kg (250-1200)
[2018-11-05] MEDS: ERGOCALCIFEROL 50,000 UNIT CAP PO (15:00)
[2018-11-05 22:53] LABS: PTH INTACT <1 pg/mL (14-64)
[2018-11-06 01:38] LABS: PTH CALCIUM 7.2 mg/dL (8.6-10.3)
[2018-11-06] MEDS: IPRATROPIUM (HFA) 12.9 GM INHALER INH ×4 (01:51→20:01)
[2018-11-06] MEDS: ALBUTEROL HFA 8 GM INHALER INH ×4 (01:51→20:01)
[2018-11-06] MEDS: INSULIN ASPART [NOVOLOG] 3 ML PEN SC ×4 (02:00→20:36)
[2018-11-06] MEDS: ACCU-CHEK XX (02:35)
[2018-11-06] MEDS: HYDROmorphONE 2 MG TAB PO ×4 (03:13→20:26)
[2018-11-06] MEDS: LORAZEPAM 1 MG TAB GTB ×4 (03:14→20:25)
[2018-11-06 05:11] LABS: ABNORMAL IP MESSAGE 1; ADD MAN DIFF? NO; BASOPHIL # 0.1 10^3/ul (0.0-0.1); BASOPHILS % 0.4 % (0.0-2.0); EOSINOPHILS # 0.5 10^3/ul (0.0-0.5); HEMATOCRIT 29.1 % (42.0-52.0); HEMOGLOBIN 8.7 g/dl (14.0-18.0); LYMPHOCYTES % 4.3 % (15.0-51.0); MEAN CORPUSCULAR HEMOGLOBIN 28.6 pg (29.0-33.0); MEAN CORPUSCULAR HGB CONC 29.9 g/dl (32.0-37.0); MEAN CORPUSCULAR VOLUME 95.7 fl (82.0-101.0); MEAN PLATELET VOLUME 12.1 fl (7.4-10.4); MONOCYTE # 2.5 10^3/ul (0.3-0.9); MONOCYTES % 10.8 % (0.0-11.0); NEUTROPHIL # 17.7 10^3/ul (1.6-7.5); NEUTROPHILS % 78.1 % (39.0-77.0); NUCLEATED RED BLOOD CELLS% 0.1 /100WBC (0.0-0.0); PLATELET COUNT 281 10^3/UL (140-415); POSITIVE DIFF @See below; RED BLOOD COUNT 3.04 10^6/ul (4.70-6.10); RED CELL DISTRIBUTION WIDTH 18.3 % (11.5-14.5)
[2018-11-06 05:11] LABS: WHITE BLOOD COUNT 22.7 10^3/ul (4.8-10.8)
[2018-11-06] MEDS: LANSOPRAZOLE 30 MG CAP GTB ×2 (06:03→17:42)
[2018-11-06] MEDS: GABAPENTIN (50 MG/ML PO SYG) GTB ×3 (06:03→22:15)
[2018-11-06 06:06] LABS: ANION GAP 2 (5-13); BLOOD UREA NITROGEN 26 mg/dl (7-20); CALCIUM 7.8 mg/dl (8.4-10.2); CARBON DIOXIDE 34 mmol/L (21-31); CHLORIDE 97 mmol/L (97-110); CREATININE 0.33 mg/dl (0.61-1.24); Estimated GFR > 60 mL/min (>60); GLUCOSE 90 mg/dl (70-220); MAGNESIUM 1.7 mg/dl (1.7-2.5); PHOSPHORUS 3.2 mg/dl (2.5-4.9); SODIUM 133 mmol/L (135-144)
[2018-11-06] MEDS: METHYLPREDNISOLONE 40 MG INJ IV (09:04)
[2018-11-06] MEDS: CA CARBONATE (250 MG/ML) 5ML CUP GTB ×4 (09:06→20:25)
[2018-11-06] MEDS: LEVETIRACETAM (100 MG/ML) 5ML CUP GTB ×2 (09:06→20:25)
[2018-11-06] MEDS: TRIMETHOPRIM/SULFAMETHOX (PO SYG) GTB (09:06)
[2018-11-06] MEDS: CALCITRIOL 0.5 MCG CAPSULE PO ×2 (09:06→20:25)
[2018-11-06] MEDS: LISINOPRIL 5 MG TAB PO (09:06)
[2018-11-06] MEDS: MAGNESIUM OXIDE 400 MG TAB GTB ×2 (09:07→20:26)
[2018-11-06] MEDS: QUETIAPINE 100 MG TAB GTB ×2 (09:07→20:26)
[2018-11-06] MEDS: DULOXETINE 30 MG CAP DR PO (09:08)
[2018-11-06] MEDS: METOCLOPRAMIDE 10 MG INJ IV ×3 (09:08→20:25)
[2018-11-06] MEDS: HYDROXYCHLOROQUINE 200 MG TAB PO ×2 (09:08→20:26)
[2018-11-06] MEDS: LINAGLIPTIN 5 MG TABLET PO (09:08)
[2018-11-06] MEDS: L ACIDOPHIL/B LACTIS/B LONGUM CAPSULE GTB ×2 (09:08→20:25)
[2018-11-06] MEDS: MICONAZOLE 2% 30 GM CR TOP ×2 (09:09→20:26)
[2018-11-06] MEDS: BALSAM PERU/CASTOR OIL 60 GM TUBE TOP ×2 (09:09→20:26)
[2018-11-06] MEDS: SOD CHLORIDE 0.9% 1,000 ML IV (13:45)
[2018-11-06] MEDS: FENTAnyl PATCH 50 MCG/HR TRANSDERM (21:43)
[2018-11-07] MEDS: IPRATROPIUM (HFA) 12.9 GM INHALER INH ×4 (01:23→19:51)
[2018-11-07] MEDS: ALBUTEROL HFA 8 GM INHALER INH ×4 (01:23→19:52)
[2018-11-07] MEDS: INSULIN ASPART [NOVOLOG] 3 ML PEN SC ×4 (02:00→20:00)
[2018-11-07] MEDS: ACCU-CHEK XX (02:19)
[2018-11-07] MEDS: LORAZEPAM 1 MG TAB GTB ×4 (02:22→20:44)
[2018-11-07] MEDS: HYDROmorphONE 2 MG TAB PO ×2 (02:28→13:39)
[2018-11-07] MEDS: SOD CHLORIDE 0.9% 1,000 ML IV ×2 (03:26→15:29)
[2018-11-07 05:22] LABS: ADD MAN DIFF? NO
[2018-11-07] MEDS: GABAPENTIN (50 MG/ML PO SYG) GTB ×3 (05:23→21:43)
[2018-11-07] MEDS: LANSOPRAZOLE 30 MG CAP GTB ×2 (05:23→17:14)
[2018-11-07 05:37] LABS: WHITE BLOOD COUNT 24.1 10^3/ul (4.8-10.8)
[2018-11-07 05:37] LABS: ABNORMAL IP MESSAGE 1; BASOPHIL # 0.1 10^3/ul (0.0-0.1); BASOPHILS % 0.5 % (0.0-2.0); EOSINOPHILS # 0.6 10^3/ul (0.0-0.5); EOSINOPHILS % 2.6 % (0.0-7.0); HEMATOCRIT 31.3 % (42.0-52.0); HEMOGLOBIN 9.4 g/dl (14.0-18.0); MEAN CORPUSCULAR HEMOGLOBIN 29.1 pg (29.0-33.0); MEAN CORPUSCULAR VOLUME 96.9 fl (82.0-101.0); MEAN PLATELET VOLUME 12.4 fl (7.4-10.4); MONOCYTES % 8.3 % (0.0-11.0); NEUTROPHIL # 19.3 10^3/ul (1.6-7.5); NEUTROPHILS % 80.1 % (39.0-77.0); PLATELET COUNT 257 10^3/UL (140-415); POSITIVE DIFF @See below; RED BLOOD COUNT 3.23 10^6/ul (4.70-6.10); RED CELL DISTRIBUTION WIDTH 18.6 % (11.5-14.5)
[2018-11-07 05:50] LABS: ALANINE AMINOTRANSFERASE 40 IU/L (13-69); ALBUMIN 2.4 g/dl (3.3-4.9); ALBUMIN/GLOBULIN RATIO 1.14; ALKALINE PHOSPHATASE 103 IU/L (42-121); ANION GAP 4 (5-13); ASPARTATE AMINO TRANSFERASE 33 IU/L (15-46); BILIRUBIN,INDIRECT 0.1 mg/dl (0-1.1); BILIRUBIN,TOTAL 0.1 mg/dl (0.2-1.3); BLOOD UREA NITROGEN 26 mg/dl (7-20); CALCIUM 7.6 mg/dl (8.4-10.2); CARBON DIOXIDE 31 mmol/L (21-31); CHLORIDE 101 mmol/L (97-110); CREATININE 0.32 mg/dl (0.61-1.24); Estimated GFR > 60 mL/min (>60); GLUCOSE 92 mg/dl (70-220); SODIUM 136 mmol/L (135-144); TOTAL PROTEIN 4.5 g/dl (6.1-8.1)
[2018-11-07] MEDS: TRIMETHOPRIM/SULFAMETHOX (PO SYG) GTB (08:46)
[2018-11-07] MEDS: BALSAM PERU/CASTOR OIL 60 GM TUBE TOP ×2 (08:46→20:45)
[2018-11-07] MEDS: MICONAZOLE 2% 30 GM CR TOP ×2 (08:46→20:45)
[2018-11-07] MEDS: LEVETIRACETAM (100 MG/ML) 5ML CUP GTB ×2 (08:47→20:44)
[2018-11-07] MEDS: CA CARBONATE (250 MG/ML) 5ML CUP GTB ×4 (08:47→20:43)
[2018-11-07] MEDS: METOCLOPRAMIDE 10 MG INJ IV ×3 (08:47→20:43)
[2018-11-07] MEDS: METHYLPREDNISOLONE 40 MG INJ IV (08:47)
[2018-11-07] MEDS: DULOXETINE 30 MG CAP DR PO (08:49)
[2018-11-07] MEDS: QUETIAPINE 100 MG TAB GTB ×2 (08:49→20:43)
[2018-11-07] MEDS: L ACIDOPHIL/B LACTIS/B LONGUM CAPSULE GTB ×2 (08:49→20:43)
[2018-11-07] MEDS: HYDROXYCHLOROQUINE 200 MG TAB PO ×2 (08:50→20:43)
[2018-11-07] MEDS: MAGNESIUM OXIDE 400 MG TAB GTB ×2 (08:50→20:44)
[2018-11-07] MEDS: CALCITRIOL 0.5 MCG CAPSULE PO ×2 (08:50→20:45)
[2018-11-07] MEDS: LINAGLIPTIN 5 MG TABLET PO (08:51)
[2018-11-07] MEDS: LISINOPRIL 5 MG TAB PO (09:19)
[2018-11-08] MEDS: IPRATROPIUM (HFA) 12.9 GM INHALER INH ×4 (01:22→20:00)
[2018-11-08] MEDS: ALBUTEROL HFA 8 GM INHALER INH ×4 (01:22→20:00)
[2018-11-08] MEDS: INSULIN ASPART [NOVOLOG] 3 ML PEN SC ×4 (01:43→20:00)
[2018-11-08] MEDS: ACCU-CHEK XX (01:44)
[2018-11-08] MEDS: LORAZEPAM 1 MG TAB GTB ×4 (03:33→20:22)
[2018-11-08] MEDS: SOD CHLORIDE 0.9% 500 ML IV (03:35)
[2018-11-08] MEDS: SOD CHLORIDE 0.9% 1,000 ML IV ×2 (03:39→18:04)
[2018-11-08 05:18] LABS: ADD MAN DIFF? NO
[2018-11-08 05:28] LABS: ABNORMAL IP MESSAGE 1; BASOPHILS % 0.2 % (0.0-2.0); EOSINOPHILS # 0.7 10^3/ul (0.0-0.5); EOSINOPHILS % 3.6 % (0.0-7.0); HEMATOCRIT 27.9 % (42.0-52.0); HEMOGLOBIN 8.3 g/dl (14.0-18.0); LYMPHOCYTES # 0.9 10^3/ul (0.8-2.9); LYMPHOCYTES % 4.2 % (15.0-51.0); MEAN CORPUSCULAR HEMOGLOBIN 28.8 pg (29.0-33.0); MEAN CORPUSCULAR HGB CONC 29.7 g/dl (32.0-37.0); MEAN CORPUSCULAR VOLUME 96.9 fl (82.0-101.0); MEAN PLATELET VOLUME 12.1 fl (7.4-10.4); MONOCYTE # 1.6 10^3/ul (0.3-0.9); MONOCYTES % 7.9 % (0.0-11.0); NEUTROPHIL # 16.5 10^3/ul (1.6-7.5); NEUTROPHILS % 80.5 % (39.0-77.0); PLATELET COUNT 243 10^3/UL (140-415); POSITIVE DIFF @See below; RED BLOOD COUNT 2.88 10^6/ul (4.70-6.10); RED CELL DISTRIBUTION WIDTH 18.7 % (11.5-14.5)
[2018-11-08 05:28] LABS: WHITE BLOOD COUNT 20.5 10^3/ul (4.8-10.8)
[2018-11-08 06:00] LABS: ANION GAP 8 (5-13); BLOOD UREA NITROGEN 24 mg/dl (7-20); CALCIUM 6.8 mg/dl (8.4-10.2); CARBON DIOXIDE 31 mmol/L (21-31); CHLORIDE 99 mmol/L (97-110); CREATININE 0.33 mg/dl (0.61-1.24); Estimated GFR > 60 mL/min (>60); GLUCOSE 94 mg/dl (70-220); POTASSIUM 3.8 mmol/L (3.5-5.1); SODIUM 138 mmol/L (135-144)
[2018-11-08] MEDS: GABAPENTIN (50 MG/ML PO SYG) GTB ×3 (06:13→21:20)
[2018-11-08] MEDS: LANSOPRAZOLE 30 MG CAP GTB ×2 (06:13→18:03)
[2018-11-08] MEDS: HYDROmorphONE 2 MG TAB PO ×3 (06:52→20:25)
[2018-11-08] MEDS: TRIMETHOPRIM/SULFAMETHOX (PO SYG) GTB (08:20)
[2018-11-08] MEDS: L ACIDOPHIL/B LACTIS/B LONGUM CAPSULE GTB ×2 (08:20→20:22)
[2018-11-08] MEDS: METOCLOPRAMIDE 10 MG INJ IV ×3 (08:20→20:22)
[2018-11-08] MEDS: LEVETIRACETAM (100 MG/ML) 5ML CUP GTB ×2 (08:20→20:22)
[2018-11-08] MEDS: CA CARBONATE (250 MG/ML) 5ML CUP GTB ×4 (08:20→20:21)
[2018-11-08] MEDS: QUETIAPINE 100 MG TAB GTB ×2 (08:21→20:22)
[2018-11-08] MEDS: LISINOPRIL 5 MG TAB PO (08:21)
[2018-11-08] MEDS: DULOXETINE 30 MG CAP DR PO (08:21)
[2018-11-08] MEDS: CALCITRIOL 0.5 MCG CAPSULE PO ×2 (08:21→20:24)
[2018-11-08] MEDS: HYDROXYCHLOROQUINE 200 MG TAB PO ×2 (08:21→20:22)
[2018-11-08] MEDS: LINAGLIPTIN 5 MG TABLET PO (08:21)
[2018-11-08] MEDS: MAGNESIUM OXIDE 400 MG TAB GTB ×2 (08:22→20:23)
[2018-11-08] MEDS: MICONAZOLE 2% 30 GM CR TOP ×2 (08:23→20:24)
[2018-11-08] MEDS: BALSAM PERU/CASTOR OIL 60 GM TUBE TOP ×2 (08:23→20:24)
[2018-11-08] MEDS: HYDROCORTISONE 5 MG TAB PEG ×3 (11:32→20:30)
[2018-11-08] MEDS: DIGOXIN 500 MCG INJ IV (11:33)
[2018-11-08 13:05] LABS: CREATININE, RANDOM URINE 37 mg/dL (20-320); MICROALBUMIN 0.7 mg/dL; MICROALBUMIN/CREATININE RATIO 19 (<30)
[2018-11-09] MEDS: IPRATROPIUM (HFA) 12.9 GM INHALER INH ×4 (01:03→19:49)
[2018-11-09] MEDS: ALBUTEROL HFA 8 GM INHALER INH ×4 (01:03→19:50)
[2018-11-09] MEDS: INSULIN ASPART [NOVOLOG] 3 ML PEN SC ×4 (02:00→20:00)
[2018-11-09] MEDS: ACCU-CHEK XX (02:16)
[2018-11-09] MEDS: LORAZEPAM 1 MG TAB GTB ×5 (02:16→20:53)
[2018-11-09 04:53] LABS: ADD MAN DIFF? NO
[2018-11-09 04:54] LABS: WHITE BLOOD COUNT 18.2 10^3/ul (4.8-10.8)
[2018-11-09 04:54] LABS: BASOPHILS % 0.2 % (0.0-2.0); EOSINOPHILS # 1.6 10^3/ul (0.0-0.5); EOSINOPHILS % 8.8 % (0.0-7.0); HEMATOCRIT 26.6 % (42.0-52.0); LYMPHOCYTES # 0.8 10^3/ul (0.8-2.9); LYMPHOCYTES % 4.1 % (15.0-51.0); MEAN CORPUSCULAR HGB CONC 30.1 g/dl (32.0-37.0); MEAN CORPUSCULAR VOLUME 96.4 fl (82.0-101.0); MEAN PLATELET VOLUME 11.6 fl (7.4-10.4); MONOCYTE # 1.4 10^3/ul (0.3-0.9); MONOCYTES % 7.6 % (0.0-11.0); NEUTROPHIL # 13.9 10^3/ul (1.6-7.5); NEUTROPHILS % 76.1 % (39.0-77.0); PLATELET COUNT 212 10^3/UL (140-415); RED BLOOD COUNT 2.76 10^6/ul (4.70-6.10); RED CELL DISTRIBUTION WIDTH 18.9 % (11.5-14.5)
[2018-11-09 05:24] LABS: ANION GAP 0 (5-13); BLOOD UREA NITROGEN 20 mg/dl (7-20); CALCIUM 6.5 mg/dl (8.4-10.2); CARBON DIOXIDE 33 mmol/L (21-31); CHLORIDE 102 mmol/L (97-110); CREATININE 0.29 mg/dl (0.61-1.24); Estimated GFR > 60 mL/min (>60); GLUCOSE 89 mg/dl (70-220); POTASSIUM 3.5 mmol/L (3.5-5.1); SODIUM 135 mmol/L (135-144)
[2018-11-09] MEDS: GABAPENTIN (50 MG/ML PO SYG) GTB ×3 (05:56→21:06)
[2018-11-09] MEDS: LANSOPRAZOLE 30 MG CAP GTB ×2 (05:56→18:31)
[2018-11-09] MEDS: HYDROmorphONE 2 MG TAB PO ×3 (05:57→22:08)
[2018-11-09] MEDS: SOD CHLORIDE 0.9% 1,000 ML IV (05:57)
[2018-11-09] MEDS: TRIMETHOPRIM/SULFAMETHOX (PO SYG) GTB (08:51)
[2018-11-09] MEDS: CA CARBONATE (250 MG/ML) 5ML CUP GTB ×4 (08:51→20:54)
[2018-11-09] MEDS: FUROSEMIDE 20 MG INJ IV (08:51)
[2018-11-09] MEDS: POTASSIUM CHLORIDE 20 MEQ POWDER FOR ORAL SOLN GTB (08:51)
[2018-11-09] MEDS: METOCLOPRAMIDE 10 MG INJ IV ×3 (08:51→20:53)
[2018-11-09] MEDS: LEVETIRACETAM (100 MG/ML) 5ML CUP GTB ×2 (08:51→20:53)
[2018-11-09] MEDS: DULOXETINE 30 MG CAP DR PO (08:52)
[2018-11-09] MEDS: LINAGLIPTIN 5 MG TABLET PO (08:52)
[2018-11-09] MEDS: HYDROXYCHLOROQUINE 200 MG TAB PO ×2 (08:52→20:53)
[2018-11-09] MEDS: QUETIAPINE 100 MG TAB GTB ×2 (08:52→20:55)
[2018-11-09] MEDS: LISINOPRIL 5 MG TAB PO (08:52)
[2018-11-09] MEDS: MAGNESIUM OXIDE 400 MG TAB GTB ×2 (08:52→20:54)
[2018-11-09] MEDS: ARTIFICIAL TEARS 15 ML OPH BOTH EYES (08:54)
[2018-11-09] MEDS: MICONAZOLE 2% 30 GM CR TOP ×2 (08:54→20:54)
[2018-11-09] MEDS: BALSAM PERU/CASTOR OIL 60 GM TUBE TOP ×2 (08:54→20:54)
[2018-11-09] MEDS: L ACIDOPHIL/B LACTIS/B LONGUM CAPSULE GTB ×2 (09:27→20:53)
[2018-11-09 10:14] LABS: AADO2 Arterial 394.3 mmHg (7.0-24.0); Allen Test ACCEPTAB; Arterial Base Excess 4.4 mmol/L (-3.0-3); Arterial Blood Gas Oxygen Sat 85.8 mmHG (95.0-98.0); Arterial COHb 0.8 % (0.0-3.0); Arterial Fraction of Oxyhgb 84.9 % (93.0-99.0); Arterial HCO3 30.1 mmol/L (22.0-26.0); Arterial MetHb 0.3 % (0.0-1.5); Arterial pCO2 50.5 mmhg (35-45); MODE VENT - AC; Site Left Radial
[2018-11-09] MEDS: HYDROCORTISONE 5 MG TAB PEG ×2 (11:20→21:06)
[2018-11-09] MEDS: CALCITRIOL 0.5 MCG CAPSULE PO ×2 (11:20→20:54)
[2018-11-09] MEDS: SOD CHLORIDE 0.9% 500 ML IV (13:00)
[2018-11-09] MEDS: PHENYLephrine 40 MG in DEXTROSE 5% 246 ML IV ×3 (14:00→23:29)
[2018-11-09] MEDS: LIDOCAINE 1% (MPF) 5 ML VIAL SC (15:40)
[2018-11-09] MEDS: HYDROCORTISONE 100 MG INJ IV (18:31)
[2018-11-09] MEDS: COLLAGENASE 5 GM (UD JAR) TOP (20:53)
[2018-11-09] MEDS: FENTAnyl PATCH 50 MCG/HR TRANSDERM (21:13)
[2018-11-10] MEDS: ALBUTEROL HFA 8 GM INHALER INH ×4 (02:12→19:40)
[2018-11-10] MEDS: IPRATROPIUM (HFA) 12.9 GM INHALER INH ×4 (02:12→19:40)
[2018-11-10] MEDS: ACCU-CHEK XX (02:38)
[2018-11-10] MEDS: LORAZEPAM 1 MG TAB GTB ×5 (02:38→23:49)
[2018-11-10] MEDS: INSULIN ASPART [NOVOLOG] 3 ML PEN SC ×4 (02:44→22:15)
[2018-11-10] MEDS: PHENYLephrine 40 MG in DEXTROSE 5% 246 ML IV ×2 (02:49→09:05)
[2018-11-10 05:06] LABS: ADD MAN DIFF? NO
[2018-11-10 05:10] LABS: ABNORMAL IP MESSAGE 1; BASOPHILS % 0.2 % (0.0-2.0); EOSINOPHILS # 0.4 10^3/ul (0.0-0.5); EOSINOPHILS % 1.9 % (0.0-7.0); HEMATOCRIT 26.1 % (42.0-52.0); HEMOGLOBIN 7.8 g/dl (14.0-18.0); LYMPHOCYTES # 0.7 10^3/ul (0.8-2.9); LYMPHOCYTES % 3.2 % (15.0-51.0); MEAN CORPUSCULAR HEMOGLOBIN 28.7 pg (29.0-33.0); MEAN CORPUSCULAR HGB CONC 29.9 g/dl (32.0-37.0); MONOCYTES % 4.1 % (0.0-11.0); NEUTROPHIL # 20.3 10^3/ul (1.6-7.5); NEUTROPHILS % 87.5 % (39.0-77.0); PLATELET COUNT 211 10^3/UL (140-415); POSITIVE DIFF @See below; RED BLOOD COUNT 2.72 10^6/ul (4.70-6.10); RED CELL DISTRIBUTION WIDTH 18.3 % (11.5-14.5)
[2018-11-10 05:10] LABS: WHITE BLOOD COUNT 23.1 10^3/ul (4.8-10.8)
[2018-11-10 05:40] LABS: ANION GAP 2 (5-13); BLOOD UREA NITROGEN 17 mg/dl (7-20); CALCIUM 6.4 mg/dl (8.4-10.2); CARBON DIOXIDE 34 mmol/L (21-31); CHLORIDE 98 mmol/L (97-110); Estimated GFR > 60 mL/min (>60); GLUCOSE 202 mg/dl (70-220); MAGNESIUM 1.6 mg/dl (1.7-2.5); PHOSPHORUS 3.6 mg/dl (2.5-4.9); POTASSIUM 3.5 mmol/L (3.5-5.1); SODIUM 134 mmol/L (135-144)
[2018-11-10] MEDS: GABAPENTIN (50 MG/ML PO SYG) GTB ×3 (06:00→23:57)
[2018-11-10] MEDS: LANSOPRAZOLE 30 MG CAP GTB ×2 (06:19→17:32)
[2018-11-10] MEDS: MAGNESIUM SULFATE 2 GM/50 ML 50 ML IVPB (06:49)
[2018-11-10] MEDS: CALCITRIOL 0.5 MCG CAPSULE PO ×2 (08:34→22:16)
[2018-11-10] MEDS: DULOXETINE 30 MG CAP DR PO (08:34)
[2018-11-10] MEDS: COLLAGENASE 5 GM (UD JAR) TOP (08:34)
[2018-11-10] MEDS: LEVETIRACETAM (100 MG/ML) 5ML CUP GTB ×2 (08:34→22:16)
[2018-11-10] MEDS: METOCLOPRAMIDE 10 MG INJ IV ×3 (08:34→22:16)
[2018-11-10] MEDS: L ACIDOPHIL/B LACTIS/B LONGUM CAPSULE GTB ×2 (08:35→22:17)
[2018-11-10] MEDS: HYDROCORTISONE 5 MG TAB PEG ×3 (08:35→22:16)
[2018-11-10] MEDS: HYDROmorphONE 2 MG TAB PO (08:36)
[2018-11-10] MEDS: HYDROXYCHLOROQUINE 200 MG TAB PO ×2 (08:36→22:16)
[2018-11-10] MEDS: LINAGLIPTIN 5 MG TABLET PO (08:37)
[2018-11-10] MEDS: QUETIAPINE 100 MG TAB GTB ×2 (08:37→22:16)
[2018-11-10] MEDS: BALSAM PERU/CASTOR OIL 60 GM TUBE TOP ×2 (08:38→22:18)
[2018-11-10] MEDS: ARTIFICIAL TEARS 15 ML OPH BOTH EYES (08:38)
[2018-11-10] MEDS: MICONAZOLE 2% 30 GM CR TOP ×2 (08:39→22:18)
[2018-11-10] MEDS: CA CARBONATE (250 MG/ML) 5ML CUP GTB ×4 (09:06→22:16)
[2018-11-10] MEDS: ALBUMIN HUMAN 25% 100 ML IV ×2 (09:14→17:40)
[2018-11-10] MEDS: TRIMETHOPRIM/SULFAMETHOX (PO SYG) GTB (09:20)
[2018-11-10] MEDS: MAGNESIUM OXIDE 400 MG TAB GTB ×2 (09:20→22:17)
[2018-11-10] MEDS: NORepinephrine 32 MG in DEXTROSE 5% 218 ML IV (12:15)
[2018-11-10] MEDS: CALCITRIOL 1 MCG INJ IV (15:19)
[2018-11-10] MEDS: CALCIUM GLUCONATE 10% 2 GM in DEXTROSE 5% 100 ML IVPB (15:39)
[2018-11-10] MEDS: MAGNESIUM SULFATE 3 GM in DEXTROSE 5% 100 ML IVPB (15:39)
[2018-11-11] MEDS: ALBUMIN HUMAN 25% 100 ML IV (00:09)
[2018-11-11] MEDS: ZOLPIDEM 5 MG TAB PO (01:16)
[2018-11-11] MEDS: ALBUTEROL HFA 8 GM INHALER INH ×4 (01:20→19:37)
[2018-11-11] MEDS: IPRATROPIUM (HFA) 12.9 GM INHALER INH ×4 (01:20→19:38)
[2018-11-11] MEDS: ACCU-CHEK XX (02:00)
[2018-11-11] MEDS: LORAZEPAM 1 MG TAB GTB ×4 (02:22→20:52)
[2018-11-11] MEDS: INSULIN ASPART [NOVOLOG] 3 ML PEN SC ×4 (02:36→20:00)
[2018-11-11] MEDS: HYDROmorphONE 2 MG TAB PO ×2 (04:43→18:40)
[2018-11-11 05:15] LABS: ADD MAN DIFF? NO
[2018-11-11 05:21] LABS: WHITE BLOOD COUNT 20.8 10^3/ul (4.8-10.8)
[2018-11-11 05:21] LABS: ABNORMAL IP MESSAGE 1; BASOPHILS % 0.1 % (0.0-2.0); EOSINOPHILS % 4.7 % (0.0-7.0); HEMATOCRIT 22.9 % (42.0-52.0); LYMPHOCYTES # 0.5 10^3/ul (0.8-2.9); LYMPHOCYTES % 2.3 % (15.0-51.0); MEAN CORPUSCULAR HEMOGLOBIN 28.8 pg (29.0-33.0); MEAN CORPUSCULAR HGB CONC 29.7 g/dl (32.0-37.0); MEAN PLATELET VOLUME 11.8 fl (7.4-10.4); MONOCYTES % 4.9 % (0.0-11.0); NEUTROPHILS % 86.7 % (39.0-77.0); PLATELET COUNT 169 10^3/UL (140-415); POSITIVE DIFF @See below; RED BLOOD COUNT 2.36 10^6/ul (4.70-6.10); RED CELL DISTRIBUTION WIDTH 17.9 % (11.5-14.5)
[2018-11-11 05:47] LABS: ANION GAP 6 (5-13); BLOOD UREA NITROGEN 16 mg/dl (7-20); CALCIUM 7.1 mg/dl (8.4-10.2); CARBON DIOXIDE 36 mmol/L (21-31); CHLORIDE 95 mmol/L (97-110); Estimated GFR > 60 mL/min (>60); GLUCOSE 134 mg/dl (70-220); MAGNESIUM 2.4 mg/dl (1.7-2.5); PHOSPHORUS 3.5 mg/dl (2.5-4.9); POTASSIUM 3.3 mmol/L (3.5-5.1); SODIUM 137 mmol/L (135-144)
[2018-11-11] MEDS: GABAPENTIN (50 MG/ML PO SYG) GTB ×3 (05:51→21:35)
[2018-11-11] MEDS: LANSOPRAZOLE 30 MG CAP GTB ×2 (05:51→18:45)
[2018-11-11 06:14] LABS: HEMOGLOBIN 6.8 g/dl (14.0-18.0)
[2018-11-11] MEDS: POTASSIUM CHLORIDE (SR) 20 MEQ TAB PO (07:07)
[2018-11-11] MEDS: METOCLOPRAMIDE 10 MG INJ IV ×3 (09:30→20:52)
[2018-11-11] MEDS: CA CARBONATE (250 MG/ML) 5ML CUP GTB ×4 (09:30→20:51)
[2018-11-11] MEDS: LINAGLIPTIN 5 MG TABLET PO (09:30)
[2018-11-11] MEDS: LEVETIRACETAM (100 MG/ML) 5ML CUP GTB ×2 (09:30→20:51)
[2018-11-11] MEDS: TRIMETHOPRIM/SULFAMETHOX (PO SYG) GTB (09:30)
[2018-11-11] MEDS: COLLAGENASE 5 GM (UD JAR) TOP (09:30)
[2018-11-11] MEDS: MIDODRINE 5 MG TAB GTB ×3 (09:31→18:55)
[2018-11-11] MEDS: CALCITRIOL 0.5 MCG CAPSULE PO ×2 (09:31→20:51)
[2018-11-11] MEDS: L ACIDOPHIL/B LACTIS/B LONGUM CAPSULE GTB ×2 (09:31→20:51)
[2018-11-11] MEDS: QUETIAPINE 100 MG TAB GTB ×2 (09:31→20:52)
[2018-11-11] MEDS: POTASSIUM CHLORIDE 20 MEQ POWDER FOR ORAL SOLN GTB (09:32)
[2018-11-11] MEDS: DULOXETINE 30 MG CAP DR PO (09:32)
[2018-11-11] MEDS: HYDROXYCHLOROQUINE 200 MG TAB PO ×2 (09:32→20:52)
[2018-11-11] MEDS: HYDROCORTISONE 5 MG TAB PEG ×2 (09:32→18:45)
[2018-11-11] MEDS: MAGNESIUM OXIDE 400 MG TAB GTB ×2 (09:32→20:52)
[2018-11-11] MEDS: BALSAM PERU/CASTOR OIL 60 GM TUBE TOP ×2 (09:33→20:53)
[2018-11-11] MEDS: MICONAZOLE 2% 30 GM CR TOP ×2 (09:33→20:53)
[2018-11-11] MEDS: ARTIFICIAL TEARS 15 ML OPH BOTH EYES (09:33)
[2018-11-11] MEDS: GUAIFENESIN 20 MG/ML 5ML CUP PO (15:20)
[2018-11-11] MEDS: CALCITRIOL 1 MCG INJ IV (16:00)
[2018-11-11] MEDS: SOD CHLORIDE 0.9% 250 ML IV* (16:40)
[2018-11-11 17:24] LABS: IMMEDIATE SPIN CROSSMATCH 1 2
[2018-11-11] MEDS: HYDROCORTISONE 20 MG TAB PEG (22:51)
[2018-11-12] MEDS: IPRATROPIUM (HFA) 12.9 GM INHALER INH ×4 (01:32→19:41)
[2018-11-12] MEDS: ALBUTEROL HFA 8 GM INHALER INH ×4 (01:32→19:41)
[2018-11-12] MEDS: INSULIN ASPART [NOVOLOG] 3 ML PEN SC ×4 (02:00→20:00)
[2018-11-12] MEDS: LORAZEPAM 1 MG TAB GTB ×4 (02:24→20:15)
[2018-11-12] MEDS: ACCU-CHEK XX (02:27)
[2018-11-12 05:11] LABS: ADD MAN DIFF? NO
[2018-11-12 05:14] LABS: ABNORMAL IP MESSAGE 1; BASOPHILS % 0.2 % (0.0-2.0); EOSINOPHILS # 0.7 10^3/ul (0.0-0.5); EOSINOPHILS % 5.2 % (0.0-7.0); HEMATOCRIT 28.3 % (42.0-52.0); HEMOGLOBIN 8.8 g/dl (14.0-18.0); LYMPHOCYTES # 0.3 10^3/ul (0.8-2.9); LYMPHOCYTES % 2.4 % (15.0-51.0); MEAN CORPUSCULAR HEMOGLOBIN 29.5 pg (29.0-33.0); MEAN CORPUSCULAR HGB CONC 31.1 g/dl (32.0-37.0); MEAN PLATELET VOLUME 11.9 fl (7.4-10.4); MONOCYTE # 0.8 10^3/ul (0.3-0.9); MONOCYTES % 6.6 % (0.0-11.0); NEUTROPHIL # 10.8 10^3/ul (1.6-7.5); NEUTROPHILS % 84.3 % (39.0-77.0); NUCLEATED RED BLOOD CELLS% 0.2 /100WBC (0.0-0.0); PLATELET COUNT 156 10^3/UL (140-415); POSITIVE DIFF @See below; RED BLOOD COUNT 2.98 10^6/ul (4.70-6.10); RED CELL DISTRIBUTION WIDTH 17.3 % (11.5-14.5)
[2018-11-12 05:14] LABS: WHITE BLOOD COUNT 12.8 10^3/ul (4.8-10.8)
[2018-11-12] MEDS: LANSOPRAZOLE 30 MG CAP GTB ×2 (05:22→17:16)
[2018-11-12] MEDS: GABAPENTIN (50 MG/ML PO SYG) GTB ×3 (05:22→22:54)
[2018-11-12] MEDS: HYDROmorphONE 2 MG TAB PO ×4 (05:23→18:57)
[2018-11-12 05:59] LABS: ANION GAP 6 (5-13); BLOOD UREA NITROGEN 19 mg/dl (7-20); CALCIUM 7.1 mg/dl (8.4-10.2); CARBON DIOXIDE 38 mmol/L (21-31); CHLORIDE 95 mmol/L (97-110); CREATININE 0.29 mg/dl (0.61-1.24); Estimated GFR > 60 mL/min (>60); GLUCOSE 128 mg/dl (70-220); MAGNESIUM 1.9 mg/dl (1.7-2.5); PHOSPHORUS 3.6 mg/dl (2.5-4.9); POTASSIUM 4.4 mmol/L (3.5-5.1); SODIUM 139 mmol/L (135-144)
[2018-11-12] MEDS: HYDROCORTISONE 20 MG TAB PEG ×3 (08:29→20:14)
[2018-11-12] MEDS: COLLAGENASE 5 GM (UD JAR) TOP (08:29)
[2018-11-12] MEDS: DULOXETINE 30 MG CAP DR PO (08:29)
[2018-11-12] MEDS: CALCITRIOL 0.5 MCG CAPSULE PO ×2 (08:29→20:51)
[2018-11-12] MEDS: LEVETIRACETAM (100 MG/ML) 5ML CUP GTB ×2 (08:29→20:13)
[2018-11-12] MEDS: HYDROXYCHLOROQUINE 200 MG TAB PO ×2 (08:29→20:50)
[2018-11-12] MEDS: MAGNESIUM OXIDE 400 MG TAB GTB ×2 (08:29→20:13)
[2018-11-12] MEDS: METOCLOPRAMIDE 10 MG INJ IV ×3 (08:29→20:14)
[2018-11-12] MEDS: L ACIDOPHIL/B LACTIS/B LONGUM CAPSULE GTB ×2 (08:29→20:13)
[2018-11-12] MEDS: LINAGLIPTIN 5 MG TABLET PO (08:30)
[2018-11-12] MEDS: TRIMETHOPRIM/SULFAMETHOX (PO SYG) GTB (08:30)
[2018-11-12] MEDS: CA CARBONATE (250 MG/ML) 5ML CUP GTB ×4 (08:30→20:13)
[2018-11-12] MEDS: QUETIAPINE 100 MG TAB GTB ×2 (08:30→20:15)
[2018-11-12] MEDS: BALSAM PERU/CASTOR OIL 60 GM TUBE TOP ×2 (08:32→20:15)
[2018-11-12] MEDS: MICONAZOLE 2% 30 GM CR TOP ×2 (08:32→20:16)
[2018-11-12] MEDS: MIDODRINE 5 MG TAB GTB ×3 (08:35→16:49)
[2018-11-12 11:09] LABS: AADO2 Arterial 356.9 mmHg (7.0-24.0); Allen Test ACCEPTAB; Arterial Base Excess 11.2 mmol/L (-3.0-3); Arterial Blood Gas Oxygen Sat 92.8 mmHG (95.0-98.0); Arterial COHb 0.5 % (0.0-3.0); Arterial HCO3 38.6 mmol/L (22.0-26.0); Arterial MetHb 0.4 % (0.0-1.5); Arterial pCO2 68.9 mmhg (35-45); MODE VENT - PC; Site Left Radial
[2018-11-12] MEDS: FENTAnyl PATCH 50 MCG/HR TRANSDERM (20:57)
[2018-11-13] MEDS: HYDROmorphONE 2 MG TAB PO ×5 (01:12→20:31)
[2018-11-13] MEDS: ALBUTEROL HFA 8 GM INHALER INH ×4 (01:22→19:58)
[2018-11-13] MEDS: IPRATROPIUM (HFA) 12.9 GM INHALER INH ×4 (01:22→19:59)
[2018-11-13] MEDS: ACCU-CHEK XX (02:00)
[2018-11-13] MEDS: INSULIN ASPART [NOVOLOG] 3 ML PEN SC ×4 (02:00→20:00)
[2018-11-13] MEDS: LORAZEPAM 1 MG TAB GTB ×5 (04:06→22:44)
[2018-11-13] MEDS: LANSOPRAZOLE 30 MG CAP GTB ×2 (05:33→17:05)
[2018-11-13] MEDS: GABAPENTIN (50 MG/ML PO SYG) GTB ×3 (05:33→22:44)
[2018-11-13] MEDS: LEVETIRACETAM (100 MG/ML) 5ML CUP GTB ×2 (08:17→20:32)
[2018-11-13] MEDS: METOCLOPRAMIDE 10 MG INJ IV ×3 (08:17→20:34)
[2018-11-13] MEDS: CA CARBONATE (250 MG/ML) 5ML CUP GTB ×4 (08:17→20:33)
[2018-11-13] MEDS: MAGNESIUM OXIDE 400 MG TAB GTB ×2 (08:17→20:34)
[2018-11-13] MEDS: TRIMETHOPRIM/SULFAMETHOX (PO SYG) GTB (08:17)
[2018-11-13] MEDS: LINAGLIPTIN 5 MG TABLET PO (08:17)
[2018-11-13] MEDS: DULOXETINE 30 MG CAP DR PO (08:18)
[2018-11-13] MEDS: MIDODRINE 5 MG TAB GTB ×3 (08:18→17:05)
[2018-11-13] MEDS: BALSAM PERU/CASTOR OIL 60 GM TUBE TOP ×2 (08:18→21:42)
[2018-11-13] MEDS: HYDROXYCHLOROQUINE 200 MG TAB PO ×2 (08:18→20:33)
[2018-11-13] MEDS: L ACIDOPHIL/B LACTIS/B LONGUM CAPSULE GTB ×2 (08:18→22:44)
[2018-11-13] MEDS: QUETIAPINE 100 MG TAB GTB ×2 (08:18→20:33)
[2018-11-13] MEDS: HYDROCORTISONE 20 MG TAB PEG ×3 (08:18→20:33)
[2018-11-13] MEDS: CALCITRIOL 0.5 MCG CAPSULE PO ×2 (08:18→20:34)
[2018-11-13] MEDS: COLLAGENASE 5 GM (UD JAR) TOP (08:19)
[2018-11-13] MEDS: MICONAZOLE 2% 30 GM CR TOP ×2 (08:19→21:42)
[2018-11-13] MEDS: METOPROLOL 5 MG INJ IV (09:25)
[2018-11-13] MEDS: GUAIFENESIN 20 MG/ML 5ML CUP PO (20:31)
[2018-11-13] MEDS: ACETAMINOPHEN 650MG/20.3ML CUP GTB (23:55)
[2018-11-14] MEDS: HYDROmorphONE 2 MG TAB PO ×5 (00:42→22:30)
[2018-11-14] MEDS: METOPROLOL 5 MG INJ IV ×2 (00:43→16:17)
[2018-11-14] MEDS: ALBUTEROL HFA 8 GM INHALER INH ×4 (01:38→19:33)
[2018-11-14] MEDS: IPRATROPIUM (HFA) 12.9 GM INHALER INH ×4 (01:38→19:33)
[2018-11-14] MEDS: INSULIN ASPART [NOVOLOG] 3 ML PEN SC ×4 (02:00→20:00)
[2018-11-14] MEDS: ACCU-CHEK XX (02:00)
[2018-11-14] MEDS: LORAZEPAM 1 MG TAB GTB ×4 (03:41→20:59)
[2018-11-14 05:14] LABS: ADD MAN DIFF? NO
[2018-11-14 05:15] LABS: BASOPHIL # 0.1 10^3/ul (0.0-0.1); BASOPHILS % 0.4 % (0.0-2.0); EOSINOPHILS # 1.1 10^3/ul (0.0-0.5); HEMATOCRIT 31.1 % (42.0-52.0); HEMOGLOBIN 9.4 g/dl (14.0-18.0); LYMPHOCYTES # 0.6 10^3/ul (0.8-2.9); LYMPHOCYTES % 4.5 % (15.0-51.0); MEAN CORPUSCULAR HEMOGLOBIN 29.1 pg (29.0-33.0); MEAN CORPUSCULAR HGB CONC 30.2 g/dl (32.0-37.0); MEAN CORPUSCULAR VOLUME 96.3 fl (82.0-101.0); MEAN PLATELET VOLUME 11.2 fl (7.4-10.4); MONOCYTE # 1.2 10^3/ul (0.3-0.9); MONOCYTES % 8.7 % (0.0-11.0); NEUTROPHIL # 10.7 10^3/ul (1.6-7.5); NEUTROPHILS % 77.4 % (39.0-77.0); PLATELET COUNT 173 10^3/UL (140-415); RED BLOOD COUNT 3.23 10^6/ul (4.70-6.10); RED CELL DISTRIBUTION WIDTH 16.5 % (11.5-14.5)
[2018-11-14 05:15] LABS: WHITE BLOOD COUNT 13.8 10^3/ul (4.8-10.8)
[2018-11-14 05:18] LABS: Allen Test ACCEPTAB; Arterial Base Excess 12.3 mmol/L (-3.0-3); Arterial Blood Gas Oxygen Sat 96.3 mmHG (95.0-98.0); Arterial COHb 1.2 % (0.0-3.0); Arterial Fraction of Oxyhgb 94.7 % (93.0-99.0); Arterial HCO3 40.1 mmol/L (22.0-26.0); Arterial MetHb 0.5 % (0.0-1.5); Arterial pCO2 72.2 mmhg (35-45); MODE VENT - PC; Site Right Radial
[2018-11-14 05:48] LABS: LACTIC ACID 1.3 mmol/L (0.5-2.0)
[2018-11-14 05:48] LABS: ANION GAP 2 (5-13); BLOOD UREA NITROGEN 20 mg/dl (7-20); CALCIUM 6.9 mg/dl (8.4-10.2); CARBON DIOXIDE 39 mmol/L (21-31); CHLORIDE 98 mmol/L (97-110); CREATININE 0.23 mg/dl (0.61-1.24); Estimated GFR > 60 mL/min (>60); GLUCOSE 114 mg/dl (70-220); POTASSIUM 4.3 mmol/L (3.5-5.1); SODIUM 139 mmol/L (135-144)
[2018-11-14] MEDS: LANSOPRAZOLE 30 MG CAP GTB ×2 (06:14→17:16)
[2018-11-14] MEDS: GABAPENTIN (50 MG/ML PO SYG) GTB ×3 (06:17→21:15)
[2018-11-14] MEDS: MIDODRINE 5 MG TAB GTB ×3 (09:00→17:00)
[2018-11-14] MEDS: METOCLOPRAMIDE 10 MG INJ IV ×3 (09:19→20:58)
[2018-11-14] MEDS: TRIMETHOPRIM/SULFAMETHOX (PO SYG) GTB (09:23)
[2018-11-14] MEDS: CA CARBONATE (250 MG/ML) 5ML CUP GTB ×4 (09:24→20:59)
[2018-11-14] MEDS: L ACIDOPHIL/B LACTIS/B LONGUM CAPSULE GTB ×2 (09:24→21:15)
[2018-11-14] MEDS: LEVETIRACETAM (100 MG/ML) 5ML CUP GTB ×2 (09:25→20:58)
[2018-11-14] MEDS: MAGNESIUM OXIDE 400 MG TAB GTB ×2 (09:25→20:59)
[2018-11-14] MEDS: QUETIAPINE 100 MG TAB GTB ×2 (09:26→20:58)
[2018-11-14] MEDS: HYDROCORTISONE 20 MG TAB PEG ×3 (09:27→20:59)
[2018-11-14] MEDS: CALCITRIOL 0.5 MCG CAPSULE PO (09:28)
[2018-11-14] MEDS: DULOXETINE 30 MG CAP DR PO (09:28)
[2018-11-14] MEDS: HYDROXYCHLOROQUINE 200 MG TAB PO ×2 (09:28→20:59)
[2018-11-14] MEDS: BALSAM PERU/CASTOR OIL 60 GM TUBE TOP ×2 (09:29→21:00)
[2018-11-14] MEDS: LINAGLIPTIN 5 MG TABLET PO (09:29)
[2018-11-14] MEDS: MICONAZOLE 2% 30 GM CR TOP ×2 (09:29→21:01)
[2018-11-14] MEDS: COLLAGENASE 5 GM (UD JAR) TOP (09:30)
[2018-11-14] MEDS: DIGOXIN 500 MCG INJ IV (12:13)
[2018-11-14] MEDS: FUROSEMIDE 20 MG INJ IV (12:13)
[2018-11-14] MEDS: DILTIAZEM 25 MG INJ IV (18:47)
[2018-11-15] MEDS: IPRATROPIUM (HFA) 12.9 GM INHALER INH ×4 (01:02→19:36)
[2018-11-15] MEDS: ALBUTEROL HFA 8 GM INHALER INH ×4 (01:02→19:36)
[2018-11-15] MEDS: INSULIN ASPART [NOVOLOG] 3 ML PEN SC ×4 (02:00→20:00)
[2018-11-15] MEDS: ACCU-CHEK XX (02:00)
[2018-11-15] MEDS: LANSOPRAZOLE 30 MG CAP GTB ×2 (05:21→18:38)
[2018-11-15] MEDS: HYDROmorphONE 2 MG TAB PO ×3 (05:21→18:38)
[2018-11-15] MEDS: CALCITRIOL 0.5 MCG CAPSULE PO ×3 (05:22→20:12)
[2018-11-15] MEDS: GABAPENTIN (50 MG/ML PO SYG) GTB ×2 (05:22→13:45)
[2018-11-15] MEDS: LORAZEPAM 1 MG TAB GTB ×5 (05:22→20:13)
[2018-11-15 06:08] LABS: ADD MAN DIFF? NO
[2018-11-15 06:26] LABS: WHITE BLOOD COUNT 14.5 10^3/ul (4.8-10.8)
[2018-11-15 06:26] LABS: BASOPHIL # 0.1 10^3/ul (0.0-0.1); BASOPHILS % 0.5 % (0.0-2.0); EOSINOPHILS # 1.4 10^3/ul (0.0-0.5); HEMATOCRIT 32.8 % (42.0-52.0); HEMOGLOBIN 9.9 g/dl (14.0-18.0); LYMPHOCYTES # 0.7 10^3/ul (0.8-2.9); LYMPHOCYTES % 5.1 % (15.0-51.0); MEAN CORPUSCULAR HEMOGLOBIN 28.8 pg (29.0-33.0); MEAN CORPUSCULAR HGB CONC 30.2 g/dl (32.0-37.0); MEAN CORPUSCULAR VOLUME 95.3 fl (82.0-101.0); MEAN PLATELET VOLUME 11.4 fl (7.4-10.4); MONOCYTE # 1.1 10^3/ul (0.3-0.9); MONOCYTES % 7.5 % (0.0-11.0); NEUTROPHILS % 75.9 % (39.0-77.0); PLATELET COUNT 197 10^3/UL (140-415); RED BLOOD COUNT 3.44 10^6/ul (4.70-6.10); RED CELL DISTRIBUTION WIDTH 16.4 % (11.5-14.5)
[2018-11-15 06:51] LABS: BLOOD UREA NITROGEN 21 mg/dl (7-20); CALCIUM 6.7 mg/dl (8.4-10.2); CHLORIDE 94 mmol/L (97-110); CREATININE 0.28 mg/dl (0.61-1.24); Estimated GFR > 60 mL/min (>60); GLUCOSE 122 mg/dl (70-220); MAGNESIUM 1.7 mg/dl (1.7-2.5); PHOSPHORUS 3.5 mg/dl (2.5-4.9); POTASSIUM 3.5 mmol/L (3.5-5.1); SODIUM 140 mmol/L (135-144)
[2018-11-15] MEDS: DULOXETINE 30 MG CAP DR PO (08:29)
[2018-11-15] MEDS: LEVETIRACETAM (100 MG/ML) 5ML CUP GTB ×2 (08:29→20:12)
[2018-11-15] MEDS: LINAGLIPTIN 5 MG TABLET PO (08:30)
[2018-11-15] MEDS: CA CARBONATE (250 MG/ML) 5ML CUP GTB ×4 (08:30→20:12)
[2018-11-15] MEDS: MAGNESIUM OXIDE 400 MG TAB GTB ×2 (08:31→20:13)
[2018-11-15] MEDS: HYDROCORTISONE 20 MG TAB PEG ×3 (08:31→20:12)
[2018-11-15] MEDS: HYDROXYCHLOROQUINE 200 MG TAB PO ×2 (08:33→20:13)
[2018-11-15] MEDS: QUETIAPINE 100 MG TAB GTB ×2 (08:33→20:13)
[2018-11-15] MEDS: METOCLOPRAMIDE 10 MG INJ IV ×3 (08:34→20:12)
[2018-11-15] MEDS: TRIMETHOPRIM/SULFAMETHOX (PO SYG) GTB (08:35)
[2018-11-15 08:49] LABS: ANION GAP 9 (5-13)
[2018-11-15 08:50] LABS: CARBON DIOXIDE 37 mmol/L (21-31)
[2018-11-15] MEDS: L ACIDOPHIL/B LACTIS/B LONGUM CAPSULE GTB ×2 (08:52→20:12)
[2018-11-15] MEDS: MICONAZOLE 2% 30 GM CR TOP ×2 (08:52→20:14)
[2018-11-15] MEDS: MIDODRINE 5 MG TAB GTB ×3 (08:53→17:00)
[2018-11-15] MEDS: BALSAM PERU/CASTOR OIL 60 GM TUBE TOP ×2 (09:00→20:15)
[2018-11-15] MEDS: COLLAGENASE 5 GM (UD JAR) TOP (09:54)
[2018-11-15] MEDS: FENTAnyl PATCH 50 MCG/HR TRANSDERM (20:47)
[2018-11-16] MEDS: GABAPENTIN (50 MG/ML PO SYG) GTB ×4 (00:52→21:33)
[2018-11-16] MEDS: HYDROmorphONE 2 MG TAB PO ×5 (00:52→19:06)
[2018-11-16] MEDS: ALBUTEROL HFA 8 GM INHALER INH ×4 (01:29→20:20)
[2018-11-16] MEDS: IPRATROPIUM (HFA) 12.9 GM INHALER INH ×4 (01:29→20:20)
[2018-11-16] MEDS: ACCU-CHEK XX (02:00)
[2018-11-16] MEDS: INSULIN ASPART [NOVOLOG] 3 ML PEN SC ×4 (02:22→20:00)
[2018-11-16] MEDS: LORAZEPAM 1 MG TAB GTB ×4 (03:42→21:32)
[2018-11-16] MEDS: LANSOPRAZOLE 30 MG CAP GTB ×2 (05:49→17:11)
[2018-11-16] MEDS: CA CARBONATE (250 MG/ML) 5ML CUP GTB ×4 (08:17→21:31)
[2018-11-16] MEDS: LEVETIRACETAM (100 MG/ML) 5ML CUP GTB ×2 (08:18→21:31)
[2018-11-16] MEDS: CALCITRIOL 0.5 MCG CAPSULE PO ×2 (08:18→22:00)
[2018-11-16] MEDS: LINAGLIPTIN 5 MG TABLET PO (08:18)
[2018-11-16] MEDS: L ACIDOPHIL/B LACTIS/B LONGUM CAPSULE GTB ×2 (08:18→21:32)
[2018-11-16] MEDS: HYDROCORTISONE 20 MG TAB PEG ×3 (08:18→21:32)
[2018-11-16] MEDS: QUETIAPINE 100 MG TAB GTB ×2 (08:18→21:32)
[2018-11-16] MEDS: DULOXETINE 30 MG CAP DR PO (08:19)
[2018-11-16] MEDS: COLLAGENASE 5 GM (UD JAR) TOP (08:19)
[2018-11-16] MEDS: METOCLOPRAMIDE 10 MG INJ IV ×3 (08:19→21:32)
[2018-11-16] MEDS: MAGNESIUM OXIDE 400 MG TAB GTB ×2 (08:19→21:34)
[2018-11-16] MEDS: HYDROXYCHLOROQUINE 200 MG TAB PO ×2 (08:19→21:32)
[2018-11-16] MEDS: BALSAM PERU/CASTOR OIL 60 GM TUBE TOP ×2 (08:20→21:37)
[2018-11-16] MEDS: MIDODRINE 5 MG TAB GTB ×3 (08:21→17:00)
[2018-11-16 09:30] LABS: OCCULT BLOOD STOOL POSITIVE (NEGATIVE)
[2018-11-16] MEDS: TRIMETHOPRIM/SULFAMETHOX (PO SYG) GTB (09:43)
[2018-11-16] MEDS: MICONAZOLE 2% 30 GM CR TOP ×2 (09:44→21:35)
[2018-11-16] MEDS: [UNRECOGNIZED DRUG - OTHER] XX (21:00)
[2018-11-16] MEDS: [UNRECOGNIZED DRUG - OTHER] XX (21:00)
[2018-11-17] MEDS: ALBUTEROL HFA 8 GM INHALER INH ×4 (01:11→20:13)
[2018-11-17] MEDS: IPRATROPIUM (HFA) 12.9 GM INHALER INH ×4 (01:11→20:13)
[2018-11-17] MEDS: HYDROmorphONE 2 MG TAB PO ×3 (01:35→23:09)
[2018-11-17] MEDS: ACCU-CHEK XX (02:00)
[2018-11-17] MEDS: INSULIN ASPART [NOVOLOG] 3 ML PEN SC ×4 (03:45→20:54)
[2018-11-17] MEDS: LORAZEPAM 1 MG TAB GTB ×5 (04:11→20:38)
[2018-11-17] MEDS: [UNRECOGNIZED DRUG - OTHER] XX ×3 (05:00→21:00)
[2018-11-17 05:32] LABS: ADD MAN DIFF? NO
[2018-11-17 05:40] LABS: ABNORMAL IP MESSAGE 1; BASOPHIL # 0.1 10^3/ul (0.0-0.1); BASOPHILS % 0.5 % (0.0-2.0); EOSINOPHILS # 1.4 10^3/ul (0.0-0.5); EOSINOPHILS % 11.5 % (0.0-7.0); HEMATOCRIT 30.2 % (42.0-52.0); LYMPHOCYTES # 0.6 10^3/ul (0.8-2.9); LYMPHOCYTES % 4.8 % (15.0-51.0); MEAN CORPUSCULAR HEMOGLOBIN 28.7 pg (29.0-33.0); MEAN CORPUSCULAR HGB CONC 29.8 g/dl (32.0-37.0); MEAN CORPUSCULAR VOLUME 96.2 fl (82.0-101.0); MONOCYTE # 0.9 10^3/ul (0.3-0.9); MONOCYTES % 7.6 % (0.0-11.0); NEUTROPHIL # 8.9 10^3/ul (1.6-7.5); NEUTROPHILS % 74.5 % (39.0-77.0); PLATELET COUNT 214 10^3/UL (140-415); POSITIVE DIFF @See below; RED BLOOD COUNT 3.14 10^6/ul (4.70-6.10); RED CELL DISTRIBUTION WIDTH 15.9 % (11.5-14.5)
[2018-11-17] MEDS: LANSOPRAZOLE 30 MG CAP GTB ×2 (06:08→17:47)
[2018-11-17 06:17] LABS: BLOOD UREA NITROGEN 20 mg/dl (7-20); CALCIUM 6.4 mg/dl (8.4-10.2); CHLORIDE 91 mmol/L (97-110); CREATININE 0.29 mg/dl (0.61-1.24); Estimated GFR > 60 mL/min (>60); GLUCOSE 127 mg/dl (70-220); POTASSIUM 3.6 mmol/L (3.5-5.1); SODIUM 137 mmol/L (135-144)
[2018-11-17 06:25] LABS: ANION GAP 7 (5-13); CARBON DIOXIDE 39 mmol/L (21-31)
[2018-11-17] MEDS: GABAPENTIN (50 MG/ML PO SYG) GTB ×3 (06:45→23:08)
[2018-11-17] MEDS: [UNRECOGNIZED DRUG - OTHER] XX ×2 (08:19→21:00)
[2018-11-17] MEDS: MIDODRINE 5 MG TAB GTB (08:20)
[2018-11-17] MEDS: CA CARBONATE (250 MG/ML) 5ML CUP GTB ×4 (09:18→20:28)
[2018-11-17] MEDS: LEVETIRACETAM (100 MG/ML) 5ML CUP GTB ×2 (09:18→20:28)
[2018-11-17] MEDS: HYDROXYCHLOROQUINE 200 MG TAB PO ×2 (09:19→20:28)
[2018-11-17] MEDS: DULOXETINE 30 MG CAP DR PO (09:19)
[2018-11-17] MEDS: METOCLOPRAMIDE 10 MG INJ IV ×3 (09:19→20:28)
[2018-11-17] MEDS: HYDROCORTISONE 20 MG TAB PEG ×3 (09:19→20:27)
[2018-11-17] MEDS: QUETIAPINE 100 MG TAB GTB ×2 (09:19→20:28)
[2018-11-17] MEDS: L ACIDOPHIL/B LACTIS/B LONGUM CAPSULE GTB ×2 (09:20→20:38)
[2018-11-17] MEDS: LINAGLIPTIN 5 MG TABLET PO (09:20)
[2018-11-17] MEDS: CALCITRIOL 0.5 MCG CAPSULE PO ×2 (09:21→20:27)
[2018-11-17] MEDS: MAGNESIUM OXIDE 400 MG TAB GTB ×2 (09:21→20:28)
[2018-11-17] MEDS: MICONAZOLE 2% 30 GM CR TOP ×2 (09:23→20:29)
[2018-11-17] MEDS: BALSAM PERU/CASTOR OIL 60 GM TUBE TOP ×2 (09:23→20:29)
[2018-11-17] MEDS: TRIMETHOPRIM/SULFAMETHOX (PO SYG) GTB (09:23)
[2018-11-17] MEDS: COLLAGENASE 5 GM (UD JAR) TOP (09:29)
[2018-11-17] MEDS: CALCIUM GLUCONATE 10% 2 GM in DEXTROSE 5% 100 ML IVPB (16:25)
[2018-11-18] MEDS: LORAZEPAM 1 MG TAB GTB ×6 (01:14→20:09)
[2018-11-18] MEDS: INSULIN ASPART [NOVOLOG] 3 ML PEN SC ×4 (02:00→19:58)
[2018-11-18] MEDS: ACCU-CHEK XX (02:00)
[2018-11-18] MEDS: IPRATROPIUM (HFA) 12.9 GM INHALER INH ×4 (02:26→20:34)
[2018-11-18] MEDS: ALBUTEROL HFA 8 GM INHALER INH ×4 (02:26→20:34)
[2018-11-18] MEDS: [UNRECOGNIZED DRUG - OTHER] XX (05:00)
[2018-11-18] MEDS: LANSOPRAZOLE 30 MG CAP GTB ×2 (05:25→18:08)
[2018-11-18] MEDS: GABAPENTIN (50 MG/ML PO SYG) GTB ×3 (05:26→22:03)
[2018-11-18 05:49] LABS: ADD MAN DIFF? NO
[2018-11-18 05:51] LABS: ABNORMAL IP MESSAGE 1; BASOPHIL # 0.1 10^3/ul (0.0-0.1); BASOPHILS % 0.6 % (0.0-2.0); EOSINOPHILS # 2.1 10^3/ul (0.0-0.5); EOSINOPHILS % 16.6 % (0.0-7.0); HEMATOCRIT 30.6 % (42.0-52.0); HEMOGLOBIN 9.4 g/dl (14.0-18.0); LYMPHOCYTES % 7.6 % (15.0-51.0); MEAN CORPUSCULAR HEMOGLOBIN 28.9 pg (29.0-33.0); MEAN CORPUSCULAR HGB CONC 30.7 g/dl (32.0-37.0); MEAN CORPUSCULAR VOLUME 94.2 fl (82.0-101.0); MONOCYTE # 0.9 10^3/ul (0.3-0.9); MONOCYTES % 6.9 % (0.0-11.0); NEUTROPHIL # 8.7 10^3/ul (1.6-7.5); NEUTROPHILS % 67.4 % (39.0-77.0); PLATELET COUNT 245 10^3/UL (140-415); POSITIVE DIFF @See below; RED BLOOD COUNT 3.25 10^6/ul (4.70-6.10); RED CELL DISTRIBUTION WIDTH 15.8 % (11.5-14.5)
[2018-11-18 05:51] LABS: WHITE BLOOD COUNT 12.9 10^3/ul (4.8-10.8)
[2018-11-18] MEDS: HYDROmorphONE 2 MG TAB PO ×3 (06:15→20:31)
[2018-11-18 06:59] LABS: BLOOD UREA NITROGEN 20 mg/dl (7-20); CALCIUM 7.6 mg/dl (8.4-10.2); CHLORIDE 91 mmol/L (97-110); CREATININE 0.32 mg/dl (0.61-1.24); Estimated GFR > 60 mL/min (>60); GLUCOSE 107 mg/dl (70-220); POTASSIUM 3.4 mmol/L (3.5-5.1); SODIUM 139 mmol/L (135-144)
[2018-11-18 07:26] LABS: ANION GAP 9 (5-13); CARBON DIOXIDE 39 mmol/L (21-31)
[2018-11-18] MEDS: [UNRECOGNIZED DRUG - OTHER] XX (09:00)
[2018-11-18] MEDS: CALCITRIOL 0.5 MCG CAPSULE PO ×2 (09:45→20:09)
[2018-11-18] MEDS: LEVETIRACETAM (100 MG/ML) 5ML CUP GTB ×2 (09:45→20:09)
[2018-11-18] MEDS: CA CARBONATE (250 MG/ML) 5ML CUP GTB ×4 (09:45→20:09)
[2018-11-18] MEDS: MAGNESIUM OXIDE 400 MG TAB GTB ×2 (09:45→20:09)
[2018-11-18] MEDS: DULOXETINE 30 MG CAP DR PO (09:46)
[2018-11-18] MEDS: QUETIAPINE 100 MG TAB GTB ×2 (09:46→20:10)
[2018-11-18] MEDS: L ACIDOPHIL/B LACTIS/B LONGUM CAPSULE GTB ×2 (09:46→20:09)
[2018-11-18] MEDS: HYDROCORTISONE 20 MG TAB PEG ×3 (09:46→20:09)
[2018-11-18] MEDS: HYDROXYCHLOROQUINE 200 MG TAB PO ×2 (09:46→20:09)
[2018-11-18] MEDS: BENAZEPRIL 10 MG TAB PO (09:47)
[2018-11-18] MEDS: METOCLOPRAMIDE 10 MG INJ IV ×3 (09:47→20:15)
[2018-11-18] MEDS: POTASSIUM CHLORIDE 20 MEQ POWDER FOR ORAL SOLN GTB (09:47)
[2018-11-18] MEDS: BALSAM PERU/CASTOR OIL 60 GM TUBE TOP ×2 (09:47→20:10)
[2018-11-18] MEDS: MICONAZOLE 2% 30 GM CR TOP ×2 (09:48→20:10)
[2018-11-18] MEDS: COLLAGENASE 5 GM (UD JAR) TOP (09:48)
[2018-11-18] MEDS: TRIMETHOPRIM/SULFAMETHOX (PO SYG) GTB (09:49)
[2018-11-18] MEDS: LINAGLIPTIN 5 MG TABLET PO (09:49)
[2018-11-18] MEDS: FUROSEMIDE 20 MG INJ IV (12:48)
[2018-11-18] MEDS: DIGOXIN 500 MCG INJ IV (12:49)
[2018-11-18] MEDS: CALCIUM GLUCONATE 10% 2 GM in DEXTROSE 5% 100 ML IVPB (14:13)
[2018-11-18] MEDS: FENTAnyl PATCH 50 MCG/HR TRANSDERM (20:30)
[2018-11-18] MEDS: NALOXONE (0.4 MG/ML) INJ IV (22:02)
[2018-11-18] MEDS: SOD CHLORIDE 0.9% 500 ML IV (22:02)
[2018-11-19] MEDS: CEFEPIME 1GM/50 ML (PMX) 50 ML IVPB ×3 (00:22→20:26)
[2018-11-19] MEDS: LORAZEPAM 1 MG TAB GTB ×6 (01:00→20:27)
[2018-11-19] MEDS: ALBUTEROL HFA 8 GM INHALER INH ×4 (01:10→20:24)
[2018-11-19] MEDS: IPRATROPIUM (HFA) 12.9 GM INHALER INH ×4 (01:10→20:24)
[2018-11-19] MEDS: INSULIN ASPART [NOVOLOG] 3 ML PEN SC ×4 (01:50→19:58)
[2018-11-19] MEDS: ACCU-CHEK XX (01:50)
[2018-11-19] MEDS: FENTAnyl PATCH 50 MCG/HR TRANSDERM (04:38)
[2018-11-19] MEDS: LANSOPRAZOLE 30 MG CAP GTB ×2 (05:34→18:14)
[2018-11-19] MEDS: GABAPENTIN (50 MG/ML PO SYG) GTB ×3 (05:34→21:20)
[2018-11-19 05:35] LABS: ADD MAN DIFF? NO
[2018-11-19 05:45] LABS: WHITE BLOOD COUNT 13.4 10^3/ul (4.8-10.8)
[2018-11-19 05:45] LABS: BASOPHIL # 0.1 10^3/ul (0.0-0.1); BASOPHILS % 0.7 % (0.0-2.0); EOSINOPHILS # 1.7 10^3/ul (0.0-0.5); EOSINOPHILS % 12.5 % (0.0-7.0); HEMATOCRIT 28.3 % (42.0-52.0); HEMOGLOBIN 8.6 g/dl (14.0-18.0); LYMPHOCYTES # 0.7 10^3/ul (0.8-2.9); LYMPHOCYTES % 5.2 % (15.0-51.0); MEAN CORPUSCULAR HEMOGLOBIN 28.8 pg (29.0-33.0); MEAN CORPUSCULAR HGB CONC 30.4 g/dl (32.0-37.0); MEAN CORPUSCULAR VOLUME 94.6 fl (82.0-101.0); MEAN PLATELET VOLUME 11.1 fl (7.4-10.4); MONOCYTE # 0.9 10^3/ul (0.3-0.9); MONOCYTES % 6.5 % (0.0-11.0); NEUTROPHIL # 9.9 10^3/ul (1.6-7.5); NEUTROPHILS % 74.2 % (39.0-77.0); PLATELET COUNT 283 10^3/UL (140-415); RED BLOOD COUNT 2.99 10^6/ul (4.70-6.10); RED CELL DISTRIBUTION WIDTH 15.9 % (11.5-14.5)
[2018-11-19 06:01] LABS: BLOOD UREA NITROGEN 21 mg/dl (7-20); CALCIUM 7.7 mg/dl (8.4-10.2); CHLORIDE 89 mmol/L (97-110); Estimated GFR > 60 mL/min (>60); GLUCOSE 125 mg/dl (70-220); MAGNESIUM 1.8 mg/dl (1.7-2.5); PHOSPHORUS 4.1 mg/dl (2.5-4.9); POTASSIUM 3.7 mmol/L (3.5-5.1); SODIUM 138 mmol/L (135-144)
[2018-11-19 06:42] LABS: ANION GAP 8 (5-13)
[2018-11-19 06:43] LABS: CARBON DIOXIDE 41 mmol/L (21-31)
[2018-11-19] MEDS: METOCLOPRAMIDE 10 MG INJ IV ×3 (09:00→20:27)
[2018-11-19] MEDS: L ACIDOPHIL/B LACTIS/B LONGUM CAPSULE GTB ×2 (09:56→20:30)
[2018-11-19] MEDS: CA CARBONATE (250 MG/ML) 5ML CUP GTB ×4 (09:56→20:27)
[2018-11-19] MEDS: TRIMETHOPRIM/SULFAMETHOX (PO SYG) GTB (09:56)
[2018-11-19] MEDS: QUETIAPINE 100 MG TAB GTB ×2 (09:57→20:27)
[2018-11-19] MEDS: LEVETIRACETAM (100 MG/ML) 5ML CUP GTB ×2 (09:57→20:27)
[2018-11-19] MEDS: MAGNESIUM OXIDE 400 MG TAB GTB ×2 (09:57→20:27)
[2018-11-19] MEDS: HYDROCORTISONE 20 MG TAB PEG ×3 (09:58→20:28)
[2018-11-19] MEDS: FUROSEMIDE 20 MG INJ IV (09:58)
[2018-11-19] MEDS: DULOXETINE 30 MG CAP DR PO (09:59)
[2018-11-19] MEDS: BENAZEPRIL 10 MG TAB PO (09:59)
[2018-11-19] MEDS: COLLAGENASE 5 GM (UD JAR) TOP (10:00)
[2018-11-19] MEDS: HYDROXYCHLOROQUINE 200 MG TAB PO ×2 (10:00→20:28)
[2018-11-19] MEDS: CALCITRIOL 0.5 MCG CAPSULE PO ×2 (10:00→20:27)
[2018-11-19] MEDS: LINAGLIPTIN 5 MG TABLET PO (10:01)
[2018-11-19] MEDS: MICONAZOLE 2% 30 GM CR TOP ×2 (10:02→20:28)
[2018-11-19] MEDS: BALSAM PERU/CASTOR OIL 60 GM TUBE TOP ×2 (10:02→20:28)
[2018-11-19] MEDS: HYDROmorphONE 2 MG TAB PO ×2 (10:02→21:37)
[2018-11-19] MEDS: DIGOXIN 0.25 MG TAB PO (15:07)
[2018-11-19] MEDS: METOPROLOL 5 MG INJ IV (18:31)
[2018-11-20] MEDS: LORAZEPAM 1 MG TAB GTB ×6 (01:00→21:00)
[2018-11-20] MEDS: ALBUTEROL HFA 8 GM INHALER INH ×4 (01:04→20:17)
[2018-11-20] MEDS: IPRATROPIUM (HFA) 12.9 GM INHALER INH ×4 (01:04→20:17)
[2018-11-20] MEDS: ACCU-CHEK XX (02:01)
[2018-11-20] MEDS: INSULIN ASPART [NOVOLOG] 3 ML PEN SC ×4 (02:03→20:00)
[2018-11-20] MEDS: LANSOPRAZOLE 30 MG CAP GTB ×2 (05:03→17:34)
[2018-11-20] MEDS: GABAPENTIN (50 MG/ML PO SYG) GTB ×3 (05:03→21:01)
[2018-11-20 05:23] LABS: ADD MAN DIFF? NO
[2018-11-20 05:26] LABS: BASOPHIL # 0.1 10^3/ul (0.0-0.1); BASOPHILS % 0.8 % (0.0-2.0); EOSINOPHILS # 1.2 10^3/ul (0.0-0.5); EOSINOPHILS % 9.3 % (0.0-7.0); HEMATOCRIT 30.8 % (42.0-52.0); HEMOGLOBIN 9.2 g/dl (14.0-18.0); LYMPHOCYTES # 0.7 10^3/ul (0.8-2.9); LYMPHOCYTES % 5.9 % (15.0-51.0); MEAN CORPUSCULAR HEMOGLOBIN 28.1 pg (29.0-33.0); MEAN CORPUSCULAR HGB CONC 29.9 g/dl (32.0-37.0); MEAN CORPUSCULAR VOLUME 94.2 fl (82.0-101.0); MEAN PLATELET VOLUME 10.9 fl (7.4-10.4); MONOCYTES % 7.8 % (0.0-11.0); NEUTROPHIL # 9.5 10^3/ul (1.6-7.5); NEUTROPHILS % 74.9 % (39.0-77.0); PLATELET COUNT 350 10^3/UL (140-415); RED BLOOD COUNT 3.27 10^6/ul (4.70-6.10); RED CELL DISTRIBUTION WIDTH 15.9 % (11.5-14.5)
[2018-11-20 05:26] LABS: WHITE BLOOD COUNT 12.6 10^3/ul (4.8-10.8)
[2018-11-20] MEDS: HYDROmorphONE 2 MG TAB PO ×3 (06:06→17:34)
[2018-11-20 06:18] LABS: ALANINE AMINOTRANSFERASE 35 IU/L (13-69); ALBUMIN 2.6 g/dl (3.3-4.9); ALBUMIN/GLOBULIN RATIO 1.23; ALKALINE PHOSPHATASE 98 IU/L (42-121); ASPARTATE AMINO TRANSFERASE 29 IU/L (15-46); BILIRUBIN,INDIRECT 0.1 mg/dl (0-1.1); BILIRUBIN,TOTAL 0.1 mg/dl (0.2-1.3); BLOOD UREA NITROGEN 26 mg/dl (7-20); CALCIUM 7.7 mg/dl (8.4-10.2); CHLORIDE 86 mmol/L (97-110); CREATININE 0.32 mg/dl (0.61-1.24); Estimated GFR > 60 mL/min (>60); GLUCOSE 131 mg/dl (70-220); SODIUM 138 mmol/L (135-144); TOTAL PROTEIN 4.7 g/dl (6.1-8.1)
[2018-11-20 06:27] LABS: ANION GAP 5 (5-13); CARBON DIOXIDE 47 mmol/L (21-31)
[2018-11-20] MEDS: COLLAGENASE 5 GM (UD JAR) TOP (08:57)
[2018-11-20] MEDS: L ACIDOPHIL/B LACTIS/B LONGUM CAPSULE GTB ×2 (08:57→20:42)
[2018-11-20] MEDS: HYDROXYCHLOROQUINE 200 MG TAB PO ×2 (08:57→20:41)
[2018-11-20] MEDS: METOCLOPRAMIDE 10 MG INJ IV ×3 (08:57→20:42)
[2018-11-20] MEDS: FUROSEMIDE 20 MG INJ IV (08:57)
[2018-11-20] MEDS: LEVETIRACETAM (100 MG/ML) 5ML CUP GTB ×2 (08:57→20:42)
[2018-11-20] MEDS: CA CARBONATE (250 MG/ML) 5ML CUP GTB ×4 (08:57→20:42)
[2018-11-20] MEDS: DULOXETINE 30 MG CAP DR PO (08:58)
[2018-11-20] MEDS: MAGNESIUM OXIDE 400 MG TAB GTB ×2 (08:58→20:41)
[2018-11-20] MEDS: HYDROCORTISONE 20 MG TAB PEG ×3 (08:58→20:41)
[2018-11-20] MEDS: QUETIAPINE 100 MG TAB GTB ×2 (08:58→20:41)
[2018-11-20] MEDS: BENAZEPRIL 10 MG TAB PO (08:59)
[2018-11-20] MEDS: LINAGLIPTIN 5 MG TABLET PO (09:00)
[2018-11-20] MEDS: MICONAZOLE 2% 30 GM CR TOP ×2 (09:00→20:42)
[2018-11-20] MEDS: BALSAM PERU/CASTOR OIL 60 GM TUBE TOP ×2 (09:00→20:42)
[2018-11-20] MEDS: CEFEPIME 1GM/50 ML (PMX) 50 ML IVPB ×2 (09:00→20:42)
[2018-11-20] MEDS: TRIMETHOPRIM/SULFAMETHOX (PO SYG) GTB (09:01)
[2018-11-20] MEDS: CALCITRIOL 0.5 MCG CAPSULE PO ×2 (10:16→20:41)
[2018-11-20] MEDS: DIGOXIN 0.25 MG TAB PO (13:28)
[2018-11-21] MEDS: LORAZEPAM 1 MG TAB GTB ×6 (01:00→20:21)
[2018-11-21] MEDS: INSULIN ASPART [NOVOLOG] 3 ML PEN SC ×4 (01:05→20:00)
[2018-11-21] MEDS: ACCU-CHEK XX (01:29)
[2018-11-21] MEDS: IPRATROPIUM (HFA) 12.9 GM INHALER INH ×4 (01:48→19:55)
[2018-11-21] MEDS: ALBUTEROL HFA 8 GM INHALER INH ×4 (01:48→19:55)
[2018-11-21] MEDS: HYDROmorphONE 2 MG TAB PO ×3 (02:58→17:59)
[2018-11-21 05:00] LABS: ADD MAN DIFF? NO
[2018-11-21 05:06] LABS: BASOPHIL # 0.1 10^3/ul (0.0-0.1); BASOPHILS % 0.8 % (0.0-2.0); EOSINOPHILS # 0.6 10^3/ul (0.0-0.5); EOSINOPHILS % 5.9 % (0.0-7.0); HEMATOCRIT 29.5 % (42.0-52.0); HEMOGLOBIN 8.6 g/dl (14.0-18.0); LYMPHOCYTES # 0.7 10^3/ul (0.8-2.9); LYMPHOCYTES % 6.3 % (15.0-51.0); MEAN CORPUSCULAR HEMOGLOBIN 28.1 pg (29.0-33.0); MEAN CORPUSCULAR HGB CONC 29.2 g/dl (32.0-37.0); MEAN CORPUSCULAR VOLUME 96.4 fl (82.0-101.0); MEAN PLATELET VOLUME 10.9 fl (7.4-10.4); MONOCYTES % 9.3 % (0.0-11.0); NEUTROPHIL # 8.1 10^3/ul (1.6-7.5); NEUTROPHILS % 75.9 % (39.0-77.0); PLATELET COUNT 385 10^3/UL (140-415); RED BLOOD COUNT 3.06 10^6/ul (4.70-6.10); RED CELL DISTRIBUTION WIDTH 15.7 % (11.5-14.5)
[2018-11-21 05:06] LABS: WHITE BLOOD COUNT 10.7 10^3/ul (4.8-10.8)
[2018-11-21 05:31] LABS: BLOOD UREA NITROGEN 30 mg/dl (7-20); CALCIUM 7.8 mg/dl (8.4-10.2); CHLORIDE 86 mmol/L (97-110); CREATININE 0.47 mg/dl (0.61-1.24); Estimated GFR > 60 mL/min (>60); GLUCOSE 145 mg/dl (70-220); MAGNESIUM 2.2 mg/dl (1.7-2.5); PHOSPHORUS 4.7 mg/dl (2.5-4.9); SODIUM 137 mmol/L (135-144)
[2018-11-21 05:43] LABS: ANION GAP 3 (5-13); CARBON DIOXIDE 48 mmol/L (21-31)
[2018-11-21] MEDS: GABAPENTIN (50 MG/ML PO SYG) GTB ×3 (05:46→22:29)
[2018-11-21] MEDS: LANSOPRAZOLE 30 MG CAP GTB ×2 (05:46→17:58)
[2018-11-21] MEDS: CEFEPIME 1GM/50 ML (PMX) 50 ML IVPB ×2 (08:57→21:00)
[2018-11-21] MEDS: TRIMETHOPRIM/SULFAMETHOX (PO SYG) GTB (08:58)
[2018-11-21] MEDS: HYDROCORTISONE 20 MG TAB PEG ×3 (08:59→20:22)
[2018-11-21] MEDS: L ACIDOPHIL/B LACTIS/B LONGUM CAPSULE GTB ×2 (08:59→20:21)
[2018-11-21] MEDS: DULOXETINE 30 MG CAP DR PO (08:59)
[2018-11-21] MEDS: QUETIAPINE 100 MG TAB GTB ×2 (08:59→20:22)
[2018-11-21] MEDS: LINAGLIPTIN 5 MG TABLET PO (09:00)
[2018-11-21] MEDS: MAGNESIUM OXIDE 400 MG TAB GTB ×2 (09:00→20:22)
[2018-11-21] MEDS: HYDROXYCHLOROQUINE 200 MG TAB PO ×2 (09:00→20:22)
[2018-11-21] MEDS: CALCITRIOL 0.5 MCG CAPSULE PO ×2 (09:00→20:21)
[2018-11-21] MEDS: BENAZEPRIL 10 MG TAB PO (09:01)
[2018-11-21] MEDS: CA CARBONATE (250 MG/ML) 5ML CUP GTB ×4 (09:02→20:22)
[2018-11-21] MEDS: FUROSEMIDE 20 MG INJ IV (09:02)
[2018-11-21] MEDS: METOCLOPRAMIDE 10 MG INJ IV ×3 (09:02→20:21)
[2018-11-21] MEDS: LEVETIRACETAM (100 MG/ML) 5ML CUP GTB ×2 (09:02→20:21)
[2018-11-21] MEDS: GUAIFENESIN 20 MG/ML 5ML CUP PO ×2 (09:02→17:58)
[2018-11-21] MEDS: DIGOXIN 0.25 MG TAB PO (14:00)
[2018-11-21] MEDS: MICONAZOLE 2% 30 GM CR TOP ×2 (14:21→20:23)
[2018-11-21] MEDS: COLLAGENASE 5 GM (UD JAR) TOP (14:22)
[2018-11-21] MEDS: BALSAM PERU/CASTOR OIL 60 GM TUBE TOP ×2 (14:22→20:23)
[2018-11-21] MEDS: FENTAnyl PATCH 50 MCG/HR TRANSDERM (20:30)
[2018-11-22] MEDS: INSULIN ASPART [NOVOLOG] 3 ML PEN SC ×4 (01:27→20:00)
[2018-11-22] MEDS: LORAZEPAM 1 MG TAB GTB ×6 (01:27→20:21)
[2018-11-22] MEDS: ACCU-CHEK XX (01:35)
[2018-11-22] MEDS: ALBUTEROL HFA 8 GM INHALER INH ×4 (01:47→19:16)
[2018-11-22] MEDS: IPRATROPIUM (HFA) 12.9 GM INHALER INH ×4 (01:47→19:16)
[2018-11-22 05:21] LABS: ADD MAN DIFF? NO
[2018-11-22] MEDS: LANSOPRAZOLE 30 MG CAP GTB ×2 (05:21→16:44)
[2018-11-22] MEDS: GABAPENTIN (50 MG/ML PO SYG) GTB ×3 (05:21→22:03)
[2018-11-22 05:28] LABS: ABNORMAL IP MESSAGE 1; BASOPHIL # 0.1 10^3/ul (0.0-0.1); EOSINOPHILS % 16.1 % (0.0-7.0); HEMATOCRIT 29.8 % (42.0-52.0); HEMOGLOBIN 8.6 g/dl (14.0-18.0); LYMPHOCYTES # 0.8 10^3/ul (0.8-2.9); LYMPHOCYTES % 6.4 % (15.0-51.0); MEAN CORPUSCULAR HEMOGLOBIN 27.7 pg (29.0-33.0); MEAN CORPUSCULAR HGB CONC 28.9 g/dl (32.0-37.0); MEAN CORPUSCULAR VOLUME 96.1 fl (82.0-101.0); MEAN PLATELET VOLUME 10.8 fl (7.4-10.4); MONOCYTE # 1.4 10^3/ul (0.3-0.9); MONOCYTES % 11.3 % (0.0-11.0); NEUTROPHIL # 7.8 10^3/ul (1.6-7.5); NEUTROPHILS % 63.3 % (39.0-77.0); PLATELET COUNT 418 10^3/UL (140-415); POSITIVE DIFF @See below; RED CELL DISTRIBUTION WIDTH 15.9 % (11.5-14.5)
[2018-11-22 05:28] LABS: WHITE BLOOD COUNT 12.3 10^3/ul (4.8-10.8)
[2018-11-22 05:52] LABS: BLOOD UREA NITROGEN 29 mg/dl (7-20); CALCIUM 8.5 mg/dl (8.4-10.2); CHLORIDE 90 mmol/L (97-110); CREATININE 0.38 mg/dl (0.61-1.24); Estimated GFR > 60 mL/min (>60); GLUCOSE 117 mg/dl (70-220); POTASSIUM 3.9 mmol/L (3.5-5.1); SODIUM 140 mmol/L (135-144)
[2018-11-22 06:04] LABS: ANION GAP 5 (5-13)
[2018-11-22 06:06] LABS: CARBON DIOXIDE 45 mmol/L (21-31)
[2018-11-22] MEDS: LEVETIRACETAM (100 MG/ML) 5ML CUP GTB ×2 (08:17→20:21)
[2018-11-22] MEDS: CA CARBONATE (250 MG/ML) 5ML CUP GTB ×4 (08:17→20:21)
[2018-11-22] MEDS: BENAZEPRIL 10 MG TAB PO (08:18)
[2018-11-22] MEDS: CALCITRIOL 0.5 MCG CAPSULE PO ×2 (08:18→20:22)
[2018-11-22] MEDS: DULOXETINE 30 MG CAP DR PO (08:18)
[2018-11-22] MEDS: QUETIAPINE 100 MG TAB GTB ×2 (08:18→20:22)
[2018-11-22] MEDS: L ACIDOPHIL/B LACTIS/B LONGUM CAPSULE GTB ×2 (08:18→20:21)
[2018-11-22] MEDS: HYDROXYCHLOROQUINE 200 MG TAB PO ×2 (08:18→20:22)
[2018-11-22] MEDS: HYDROCORTISONE 20 MG TAB PEG ×3 (08:18→20:22)
[2018-11-22] MEDS: FUROSEMIDE 20 MG INJ IV (08:19)
[2018-11-22] MEDS: MAGNESIUM OXIDE 400 MG TAB GTB ×2 (08:19→20:23)
[2018-11-22] MEDS: METOCLOPRAMIDE 10 MG INJ IV ×3 (08:19→20:21)
[2018-11-22] MEDS: LINAGLIPTIN 5 MG TABLET PO (08:19)
[2018-11-22] MEDS: CEFEPIME 1GM/50 ML (PMX) 50 ML IVPB ×2 (08:19→20:22)
[2018-11-22] MEDS: COLLAGENASE 5 GM (UD JAR) TOP (08:27)
[2018-11-22] MEDS: BALSAM PERU/CASTOR OIL 60 GM TUBE TOP ×2 (08:27→20:23)
[2018-11-22] MEDS: MICONAZOLE 2% 30 GM CR TOP ×2 (08:27→20:23)
[2018-11-22] MEDS: TRIMETHOPRIM/SULFAMETHOX (PO SYG) GTB (10:20)
[2018-11-22] MEDS: FENTAnyl (DRIP) 1000 mcg/100mL 100 ML IV (10:24)
[2018-11-22] MEDS: DIGOXIN 0.25 MG TAB PO (13:58)
[2018-11-22] MEDS: ACETAMINOPHEN 650MG/20.3ML CUP GTB (16:44)
[2018-11-23] MEDS: LORAZEPAM 1 MG TAB GTB ×6 (01:15→20:48)
[2018-11-23] MEDS: INSULIN ASPART [NOVOLOG] 3 ML PEN SC ×4 (01:21→21:03)
[2018-11-23] MEDS: ACCU-CHEK XX (01:23)
[2018-11-23] MEDS: IPRATROPIUM (HFA) 12.9 GM INHALER INH ×4 (01:24→19:30)
[2018-11-23] MEDS: ALBUTEROL HFA 8 GM INHALER INH ×4 (01:25→19:30)
[2018-11-23] MEDS: GABAPENTIN (50 MG/ML PO SYG) GTB ×2 (05:00→13:47)
[2018-11-23] MEDS: LANSOPRAZOLE 30 MG CAP GTB ×2 (05:01→16:57)
[2018-11-23 05:28] LABS: ADD MAN DIFF? NO
[2018-11-23 05:35] LABS: WHITE BLOOD COUNT 15.8 10^3/ul (4.8-10.8)
[2018-11-23 05:35] LABS: ABNORMAL IP MESSAGE 1; BASOPHIL # 0.1 10^3/ul (0.0-0.1); BASOPHILS % 0.8 % (0.0-2.0); EOSINOPHILS # 1.7 10^3/ul (0.0-0.5); EOSINOPHILS % 10.7 % (0.0-7.0); HEMATOCRIT 28.6 % (42.0-52.0); HEMOGLOBIN 8.5 g/dl (14.0-18.0); LYMPHOCYTES # 1.3 10^3/ul (0.8-2.9); LYMPHOCYTES % 8.2 % (15.0-51.0); MEAN CORPUSCULAR HEMOGLOBIN 28.3 pg (29.0-33.0); MEAN CORPUSCULAR HGB CONC 29.7 g/dl (32.0-37.0); MEAN CORPUSCULAR VOLUME 95.3 fl (82.0-101.0); MEAN PLATELET VOLUME 10.8 fl (7.4-10.4); MONOCYTE # 1.6 10^3/ul (0.3-0.9); NEUTROPHIL # 10.9 10^3/ul (1.6-7.5); NEUTROPHILS % 68.7 % (39.0-77.0); PLATELET COUNT 460 10^3/UL (140-415); POSITIVE DIFF @See below
[2018-11-23 06:00] LABS: ALANINE AMINOTRANSFERASE 28 IU/L (13-69); ALBUMIN 2.8 g/dl (3.3-4.9); ALBUMIN/GLOBULIN RATIO 1.12; ALKALINE PHOSPHATASE 124 IU/L (42-121); ASPARTATE AMINO TRANSFERASE 37 IU/L (15-46); BILIRUBIN,INDIRECT 0.2 mg/dl (0-1.1); BILIRUBIN,TOTAL 0.2 mg/dl (0.2-1.3); BLOOD UREA NITROGEN 32 mg/dl (7-20); CALCIUM 8.4 mg/dl (8.4-10.2); CHLORIDE 89 mmol/L (97-110); CREATININE 0.39 mg/dl (0.61-1.24); Estimated GFR > 60 mL/min (>60); GLUCOSE 117 mg/dl (70-220); POTASSIUM 3.5 mmol/L (3.5-5.1); SODIUM 141 mmol/L (135-144); TOTAL PROTEIN 5.3 g/dl (6.1-8.1)
[2018-11-23 06:11] LABS: ANION GAP 3 (5-13)
[2018-11-23 06:13] LABS: CARBON DIOXIDE 49 mmol/L (21-31)
[2018-11-23 08:14] LABS: AADO2 Arterial 447.1 mmHg (7.0-24.0); Arterial Base Excess 24.9 mmol/L (-3.0-3); Arterial COHb 1.2 % (0.0-3.0); Arterial Fraction of Oxyhgb 93.8 % (93.0-99.0); Arterial HCO3 52.3 mmol/L (22.0-26.0); Arterial MetHb 0.1 % (0.0-1.5); Arterial pCO2 78.3 mmhg (35-45); MODE VENT - PC; Site Left Radial
[2018-11-23] MEDS: CA CARBONATE (250 MG/ML) 5ML CUP GTB ×4 (08:57→20:42)
[2018-11-23] MEDS: LEVETIRACETAM (100 MG/ML) 5ML CUP GTB ×2 (08:57→20:42)
[2018-11-23] MEDS: MAGNESIUM OXIDE 400 MG TAB GTB ×2 (08:57→20:41)
[2018-11-23] MEDS: HYDROXYCHLOROQUINE 200 MG TAB PO ×2 (08:57→20:42)
[2018-11-23] MEDS: LINAGLIPTIN 5 MG TABLET PO (08:57)
[2018-11-23] MEDS: L ACIDOPHIL/B LACTIS/B LONGUM CAPSULE GTB ×2 (08:58→20:42)
[2018-11-23] MEDS: BENAZEPRIL 10 MG TAB PO (08:58)
[2018-11-23] MEDS: DULOXETINE 30 MG CAP DR PO (08:58)
[2018-11-23] MEDS: FUROSEMIDE 20 MG INJ IV (08:58)
[2018-11-23] MEDS: HYDROCORTISONE 20 MG TAB PEG (08:58)
[2018-11-23] MEDS: CALCITRIOL 0.5 MCG CAPSULE PO ×2 (08:58→20:41)
[2018-11-23] MEDS: CEFEPIME 1GM/50 ML (PMX) 50 ML IVPB ×2 (08:59→20:42)
[2018-11-23] MEDS: MICONAZOLE 2% 30 GM CR TOP ×2 (08:59→20:44)
[2018-11-23] MEDS: BALSAM PERU/CASTOR OIL 60 GM TUBE TOP ×2 (08:59→20:43)
[2018-11-23] MEDS: COLLAGENASE 5 GM (UD JAR) TOP (08:59)
[2018-11-23] MEDS: METOCLOPRAMIDE 10 MG INJ IV ×3 (09:04→20:42)
[2018-11-23] MEDS: TRIMETHOPRIM/SULFAMETHOX (PO SYG) GTB (09:10)
[2018-11-23] MEDS: ASCORBIC ACID 250 MG TAB GTB (09:10)
[2018-11-23] MEDS: QUETIAPINE 100 MG TAB GTB ×2 (09:10→20:41)
[2018-11-23] MEDS: ZINC SULFATE 220 MG CAP GTB (09:10)
[2018-11-23] MEDS: DIGOXIN 0.25 MG TAB PO (13:38)
[2018-11-23 14:43] LABS: ADD UMIC NO; UR ASCORBIC ACID NEGATIVE (NEGATIVE); UR BACTERIA FEW /HPF (NONE SEEN); UR BILIRUBIN (Dip) NEGATIVE (NEGATIVE); UR BLOOD (Dip) NEGATIVE (NEGATIVE); UR CLARITY SLIGHTLY CLOUDY (CLEAR); UR COLOR YELLOW (YELLOW); UR GLUCOSE (Dip) NEGATIVE (NEGATIVE); UR KETONES (Dip) NEGATIVE (NEGATIVE); UR LEUKOCYTE ESTERASE (Dip) NEGATIVE Leu/ul (NEGATIVE); UR MUCUS FEW /HPF (NONE SEEN); UR NITRITE (Dip) NEGATIVE (NEGATIVE); UR RBC 11 /HPF (0-5); UR SPECIFIC GRAVITY (Dip) 1.013 (1.003-1.030); UR TOTAL PROTEIN (Dip) NEGATIVE (NEGATIVE); UR UROBILINOGEN (Dip) NEGATIVE (NEGATIVE); UR WBC 7 /HPF (0-5)
[2018-11-23 15:40] LABS: LACTIC ACID 1.5 mmol/L (0.5-2.0)
[2018-11-23] MEDS: HYDROCORTISONE 5 MG TAB PEG ×2 (16:57→20:41)
[2018-11-23] MEDS: FENTAnyl (DRIP) 1000 mcg/100mL 100 ML IV (18:54)
[2018-11-24] MEDS: GABAPENTIN (50 MG/ML PO SYG) GTB ×4 (00:37→20:15)
[2018-11-24] MEDS: LORAZEPAM 1 MG TAB GTB ×6 (00:38→20:15)
[2018-11-24] MEDS: HYDROmorphONE 2 MG TAB PO (00:38)
[2018-11-24] MEDS: IPRATROPIUM (HFA) 12.9 GM INHALER INH ×4 (01:11→19:19)
[2018-11-24] MEDS: ALBUTEROL HFA 8 GM INHALER INH ×4 (01:17→19:19)
[2018-11-24] MEDS: INSULIN ASPART [NOVOLOG] 3 ML PEN SC ×4 (02:00→20:00)
[2018-11-24] MEDS: ACCU-CHEK XX (02:00)
[2018-11-24 04:31] LABS: ADD MAN DIFF? NO
[2018-11-24 04:36] LABS: WHITE BLOOD COUNT 14.1 10^3/ul (4.8-10.8)
[2018-11-24 04:36] LABS: ABNORMAL IP MESSAGE 1; BASOPHIL # 0.1 10^3/ul (0.0-0.1); BASOPHILS % 0.7 % (0.0-2.0); EOSINOPHILS # 1.4 10^3/ul (0.0-0.5); HEMATOCRIT 25.2 % (42.0-52.0); HEMOGLOBIN 7.2 g/dl (14.0-18.0); LYMPHOCYTES # 0.8 10^3/ul (0.8-2.9); LYMPHOCYTES % 5.4 % (15.0-51.0); MEAN CORPUSCULAR HEMOGLOBIN 27.9 pg (29.0-33.0); MEAN CORPUSCULAR HGB CONC 28.6 g/dl (32.0-37.0); MEAN CORPUSCULAR VOLUME 97.7 fl (82.0-101.0); MEAN PLATELET VOLUME 10.9 fl (7.4-10.4); MONOCYTE # 1.3 10^3/ul (0.3-0.9); MONOCYTES % 9.1 % (0.0-11.0); NEUTROPHIL # 10.2 10^3/ul (1.6-7.5); NEUTROPHILS % 72.6 % (39.0-77.0); PLATELET COUNT 418 10^3/UL (140-415); POSITIVE DIFF @See below; RED BLOOD COUNT 2.58 10^6/ul (4.70-6.10); RED CELL DISTRIBUTION WIDTH 16.1 % (11.5-14.5)
[2018-11-24 04:51] LABS: BLOOD UREA NITROGEN 32 mg/dl (7-20); CALCIUM 7.8 mg/dl (8.4-10.2); CHLORIDE 90 mmol/L (97-110); CREATININE 0.38 mg/dl (0.61-1.24); Estimated GFR > 60 mL/min (>60); GLUCOSE 139 mg/dl (70-220); MAGNESIUM 2.1 mg/dl (1.7-2.5); PHOSPHORUS 3.6 mg/dl (2.5-4.9); POTASSIUM 3.5 mmol/L (3.5-5.1); SODIUM 142 mmol/L (135-144)
[2018-11-24 04:59] LABS: ANION GAP 2 (5-13); CARBON DIOXIDE 50 mmol/L (21-31)
[2018-11-24] MEDS: LANSOPRAZOLE 30 MG CAP GTB ×2 (05:37→17:10)
[2018-11-24] MEDS: LEVETIRACETAM (100 MG/ML) 5ML CUP GTB ×2 (08:22→20:15)
[2018-11-24] MEDS: COLLAGENASE 5 GM (UD JAR) TOP (08:22)
[2018-11-24] MEDS: METOCLOPRAMIDE 10 MG INJ IV ×3 (08:22→20:16)
[2018-11-24] MEDS: CA CARBONATE (250 MG/ML) 5ML CUP GTB ×4 (08:22→20:15)
[2018-11-24] MEDS: ZINC SULFATE 220 MG CAP GTB (08:23)
[2018-11-24] MEDS: BENAZEPRIL 10 MG TAB PO (08:24)
[2018-11-24] MEDS: DULOXETINE 30 MG CAP DR PO (08:25)
[2018-11-24] MEDS: ASCORBIC ACID 250 MG TAB GTB (08:25)
[2018-11-24] MEDS: L ACIDOPHIL/B LACTIS/B LONGUM CAPSULE GTB ×2 (08:25→20:15)
[2018-11-24] MEDS: HYDROCORTISONE 5 MG TAB PEG ×3 (08:26→20:16)
[2018-11-24] MEDS: QUETIAPINE 100 MG TAB GTB ×2 (08:26→20:17)
[2018-11-24] MEDS: CALCITRIOL 0.5 MCG CAPSULE PO ×2 (08:26→20:16)
[2018-11-24] MEDS: CEFEPIME 1GM/50 ML (PMX) 50 ML IVPB ×2 (08:27→20:22)
[2018-11-24] MEDS: BALSAM PERU/CASTOR OIL 60 GM TUBE TOP ×2 (08:29→20:18)
[2018-11-24] MEDS: TRIMETHOPRIM/SULFAMETHOX (PO SYG) GTB (08:29)
[2018-11-24] MEDS: LINAGLIPTIN 5 MG TABLET PO (08:29)
[2018-11-24] MEDS: MICONAZOLE 2% 30 GM CR TOP ×2 (08:30→20:18)
[2018-11-24] MEDS: MAGNESIUM OXIDE 400 MG TAB GTB ×2 (08:37→20:17)
[2018-11-24] MEDS: POTASSIUM CHLORIDE 20 MEQ POWDER FOR ORAL SOLN GTB (09:51)
[2018-11-24] MEDS: HYDROXYCHLOROQUINE 200 MG TAB PO ×2 (09:51→20:16)
[2018-11-24] MEDS: ACETAZOLAMIDE 500 MG INJ IV (09:51)
[2018-11-24 09:56] LABS: ADD MAN DIFF? NO
[2018-11-24 09:59] LABS: ABNORMAL IP MESSAGE 1; BASOPHIL # 0.1 10^3/ul (0.0-0.1); BASOPHILS % 0.7 % (0.0-2.0); EOSINOPHILS # 2.5 10^3/ul (0.0-0.5); EOSINOPHILS % 16.6 % (0.0-7.0); HEMATOCRIT 24.9 % (42.0-52.0); HEMOGLOBIN 7.3 g/dl (14.0-18.0); LYMPHOCYTES % 6.6 % (15.0-51.0); MEAN CORPUSCULAR HEMOGLOBIN 28.4 pg (29.0-33.0); MEAN CORPUSCULAR HGB CONC 29.3 g/dl (32.0-37.0); MEAN CORPUSCULAR VOLUME 96.9 fl (82.0-101.0); MEAN PLATELET VOLUME 10.3 fl (7.4-10.4); MONOCYTE # 1.6 10^3/ul (0.3-0.9); MONOCYTES % 10.7 % (0.0-11.0); NEUTROPHIL # 9.5 10^3/ul (1.6-7.5); NEUTROPHILS % 63.3 % (39.0-77.0); PLATELET COUNT 406 10^3/UL (140-415); POSITIVE DIFF @See below; RED BLOOD COUNT 2.57 10^6/ul (4.70-6.10)
[2018-11-24] MEDS: ACETAMINOPHEN 650MG/20.3ML CUP GTB (12:03)
[2018-11-24] MEDS: DIGOXIN 0.25 MG TAB PO (12:04)
[2018-11-24 13:05] LABS: DIGOXIN 1.6 ng/ml (1.0-2.0)
[2018-11-24] MEDS: ENOXAPARIN 30 MG/0.3 ML SYG SC (17:12)
[2018-11-24] MEDS: DAPTOMYCIN IVPB (17:58)
[2018-11-24] MEDS: SOD CHLORIDE 0.9% IVPB (17:58)
[2018-11-24] MEDS: FENTAnyl (DRIP) 1000 mcg/100mL 100 ML IV (22:22)
[2018-11-25] MEDS: LORAZEPAM 1 MG TAB GTB ×6 (01:04→20:24)
[2018-11-25] MEDS: INSULIN ASPART [NOVOLOG] 3 ML PEN SC ×5 (01:13→23:46)
[2018-11-25] MEDS: ACCU-CHEK XX (01:14)
[2018-11-25] MEDS: HYDROmorphONE 2 MG TAB PO (01:47)
[2018-11-25] MEDS: IPRATROPIUM (HFA) 12.9 GM INHALER INH ×4 (02:12→19:41)
[2018-11-25] MEDS: ALBUTEROL HFA 8 GM INHALER INH ×4 (02:12→19:41)
[2018-11-25 05:15] LABS: ADD MAN DIFF? NO
[2018-11-25] MEDS: GABAPENTIN (50 MG/ML PO SYG) GTB ×3 (05:16→21:55)
[2018-11-25] MEDS: LANSOPRAZOLE 30 MG CAP GTB ×2 (05:16→17:55)
[2018-11-25 05:24] LABS: WHITE BLOOD COUNT 13.4 10^3/ul (4.8-10.8)
[2018-11-25 05:24] LABS: ABNORMAL IP MESSAGE 1; BASOPHIL # 0.1 10^3/ul (0.0-0.1); EOSINOPHILS # 1.9 10^3/ul (0.0-0.5); EOSINOPHILS % 14.3 % (0.0-7.0); HEMATOCRIT 25.8 % (42.0-52.0); HEMOGLOBIN 7.3 g/dl (14.0-18.0); LYMPHOCYTES # 0.8 10^3/ul (0.8-2.9); LYMPHOCYTES % 6.3 % (15.0-51.0); MEAN CORPUSCULAR HEMOGLOBIN 27.9 pg (29.0-33.0); MEAN CORPUSCULAR HGB CONC 28.3 g/dl (32.0-37.0); MEAN CORPUSCULAR VOLUME 98.5 fl (82.0-101.0); MEAN PLATELET VOLUME 10.9 fl (7.4-10.4); MONOCYTE # 1.5 10^3/ul (0.3-0.9); NEUTROPHIL # 8.6 10^3/ul (1.6-7.5); NEUTROPHILS % 64.3 % (39.0-77.0); PLATELET COUNT 442 10^3/UL (140-415); POSITIVE DIFF @See below; RED BLOOD COUNT 2.62 10^6/ul (4.70-6.10); RED CELL DISTRIBUTION WIDTH 16.1 % (11.5-14.5)
[2018-11-25 05:49] LABS: BLOOD UREA NITROGEN 30 mg/dl (7-20); CHLORIDE 99 mmol/L (97-110); CREATININE 0.45 mg/dl (0.61-1.24); Estimated GFR > 60 mL/min (>60); GLUCOSE 111 mg/dl (70-220); MAGNESIUM 2.2 mg/dl (1.7-2.5); PHOSPHORUS 3.8 mg/dl (2.5-4.9); SODIUM 144 mmol/L (135-144)
[2018-11-25 06:05] LABS: ANION GAP 4 (5-13)
[2018-11-25 06:06] LABS: CARBON DIOXIDE 41 mmol/L (21-31)
[2018-11-25] MEDS: CA CARBONATE (250 MG/ML) 5ML CUP GTB ×4 (09:23→20:26)
[2018-11-25] MEDS: MAGNESIUM OXIDE 400 MG TAB GTB ×2 (09:24→20:25)
[2018-11-25] MEDS: QUETIAPINE 100 MG TAB GTB ×2 (09:24→20:25)
[2018-11-25] MEDS: ACETAZOLAMIDE 500 MG INJ IV (09:24)
[2018-11-25] MEDS: CEFEPIME 1GM/50 ML (PMX) 50 ML IVPB ×2 (09:24→20:27)
[2018-11-25] MEDS: TRIMETHOPRIM/SULFAMETHOX (PO SYG) GTB (09:24)
[2018-11-25] MEDS: HYDROCORTISONE 5 MG TAB PEG ×3 (09:24→20:25)
[2018-11-25] MEDS: LINAGLIPTIN 5 MG TABLET PO (09:26)
[2018-11-25] MEDS: ASCORBIC ACID 250 MG TAB GTB (09:26)
[2018-11-25] MEDS: L ACIDOPHIL/B LACTIS/B LONGUM CAPSULE GTB ×2 (09:26→20:24)
[2018-11-25] MEDS: DULOXETINE 30 MG CAP DR PO (09:27)
[2018-11-25] MEDS: ZINC SULFATE 220 MG CAP GTB (09:27)
[2018-11-25] MEDS: HYDROXYCHLOROQUINE 200 MG TAB PO ×2 (09:27→20:25)
[2018-11-25] MEDS: METOCLOPRAMIDE 10 MG INJ IV ×3 (09:27→20:25)
[2018-11-25] MEDS: BENAZEPRIL 10 MG TAB PO (09:27)
[2018-11-25] MEDS: LEVETIRACETAM (100 MG/ML) 5ML CUP GTB ×2 (09:27→20:26)
[2018-11-25] MEDS: CALCITRIOL 0.5 MCG CAPSULE PO ×2 (09:27→20:25)
[2018-11-25] MEDS: COLLAGENASE 5 GM (UD JAR) TOP (09:28)
[2018-11-25] MEDS: BALSAM PERU/CASTOR OIL 60 GM TUBE TOP ×2 (09:28→20:26)
[2018-11-25] MEDS: MICONAZOLE 2% 30 GM CR TOP ×2 (09:29→20:26)
[2018-11-25] MEDS: ENOXAPARIN 30 MG/0.3 ML SYG SC (10:31)
[2018-11-25] MEDS: DIGOXIN 0.25 MG TAB PO (13:00)
[2018-11-25] MEDS: DAPTOMYCIN IVPB (16:14)
[2018-11-25] MEDS: SOD CHLORIDE 0.9% IVPB (16:14)
[2018-11-25] MEDS: FENTAnyl (DRIP) 1000 mcg/100mL 100 ML IV (23:59)
[2018-11-26] MEDS: LORAZEPAM 1 MG TAB GTB ×6 (00:30→21:00)
[2018-11-26] MEDS: IPRATROPIUM (HFA) 12.9 GM INHALER INH ×4 (01:22→19:52)
[2018-11-26] MEDS: ALBUTEROL HFA 8 GM INHALER INH ×4 (01:23→19:52)
[2018-11-26 05:07] LABS: ADD MAN DIFF? NO
[2018-11-26 05:28] LABS: ABNORMAL IP MESSAGE 1; BASOPHIL # 0.1 10^3/ul (0.0-0.1); BASOPHILS % 0.8 % (0.0-2.0); EOSINOPHILS # 2.2 10^3/ul (0.0-0.5); EOSINOPHILS % 12.5 % (0.0-7.0); HEMATOCRIT 25.7 % (42.0-52.0); HEMOGLOBIN 7.4 g/dl (14.0-18.0); LYMPHOCYTES # 1.3 10^3/ul (0.8-2.9); LYMPHOCYTES % 7.5 % (15.0-51.0); MEAN CORPUSCULAR HEMOGLOBIN 27.5 pg (29.0-33.0); MEAN CORPUSCULAR HGB CONC 28.8 g/dl (32.0-37.0); MEAN CORPUSCULAR VOLUME 95.5 fl (82.0-101.0); MEAN PLATELET VOLUME 11.1 fl (7.4-10.4); MONOCYTE # 1.8 10^3/ul (0.3-0.9); MONOCYTES % 10.5 % (0.0-11.0); NEUTROPHIL # 11.5 10^3/ul (1.6-7.5); NEUTROPHILS % 65.1 % (39.0-77.0); PLATELET COUNT 476 10^3/UL (140-415); POSITIVE DIFF @See below; RED BLOOD COUNT 2.69 10^6/ul (4.70-6.10); RED CELL DISTRIBUTION WIDTH 16.5 % (11.5-14.5)
[2018-11-26 05:28] LABS: WHITE BLOOD COUNT 17.6 10^3/ul (4.8-10.8)
[2018-11-26 05:39] LABS: CREATINE KINASE < 20 IU/L (23-200)
[2018-11-26 05:45] LABS: ANION GAP 4 (5-13); BLOOD UREA NITROGEN 33 mg/dl (7-20); CALCIUM 8.4 mg/dl (8.4-10.2); CARBON DIOXIDE 39 mmol/L (21-31); CHLORIDE 99 mmol/L (97-110); CREATININE 0.42 mg/dl (0.61-1.24); Estimated GFR > 60 mL/min (>60); GLUCOSE 109 mg/dl (70-220); MAGNESIUM 2.1 mg/dl (1.7-2.5); POTASSIUM 4.4 mmol/L (3.5-5.1); SODIUM 142 mmol/L (135-144)
[2018-11-26] MEDS: INSULIN ASPART [NOVOLOG] 3 ML PEN SC ×4 (05:48→23:44)
[2018-11-26] MEDS: LANSOPRAZOLE 30 MG CAP GTB ×2 (05:49→18:25)
[2018-11-26] MEDS: GABAPENTIN (50 MG/ML PO SYG) GTB ×3 (05:49→21:17)
[2018-11-26] MEDS: METOCLOPRAMIDE 10 MG INJ IV ×3 (09:00→21:17)
[2018-11-26] MEDS: BENAZEPRIL 10 MG TAB PO (10:41)
[2018-11-26] MEDS: CA CARBONATE (250 MG/ML) 5ML CUP GTB ×4 (10:42→21:17)
[2018-11-26] MEDS: DULOXETINE 30 MG CAP DR PO (10:43)
[2018-11-26] MEDS: ASCORBIC ACID 250 MG TAB GTB (10:43)
[2018-11-26] MEDS: CALCITRIOL 0.5 MCG CAPSULE PO ×2 (10:43→21:17)
[2018-11-26] MEDS: ZINC SULFATE 220 MG CAP GTB (10:44)
[2018-11-26] MEDS: HYDROCORTISONE 5 MG TAB PEG ×3 (10:44→21:17)
[2018-11-26] MEDS: LEVETIRACETAM (100 MG/ML) 5ML CUP GTB ×2 (10:44→21:17)
[2018-11-26] MEDS: HYDROXYCHLOROQUINE 200 MG TAB PO ×2 (10:45→21:18)
[2018-11-26] MEDS: QUETIAPINE 100 MG TAB GTB ×2 (10:45→21:17)
[2018-11-26] MEDS: ACETAZOLAMIDE 500 MG INJ IV (10:46)
[2018-11-26] MEDS: MAGNESIUM OXIDE 400 MG TAB GTB ×2 (10:46→21:18)
[2018-11-26] MEDS: LINAGLIPTIN 5 MG TABLET PO (10:46)
[2018-11-26] MEDS: TRIMETHOPRIM/SULFAMETHOX (PO SYG) GTB (10:47)
[2018-11-26] MEDS: CEFEPIME 1GM/50 ML (PMX) 50 ML IVPB ×2 (10:47→21:17)
[2018-11-26] MEDS: MICONAZOLE 2% 30 GM CR TOP ×2 (10:48→21:18)
[2018-11-26] MEDS: BALSAM PERU/CASTOR OIL 60 GM TUBE TOP ×2 (10:48→21:18)
[2018-11-26] MEDS: L ACIDOPHIL/B LACTIS/B LONGUM CAPSULE GTB ×2 (10:50→21:17)
[2018-11-26] MEDS: ENOXAPARIN 30 MG/0.3 ML SYG SC (10:55)
[2018-11-26] MEDS: SOD CHLORIDE 0.9% 1,000 ML IV (13:58)
[2018-11-26] MEDS: DAPTOMYCIN IVPB (15:49)
[2018-11-26] MEDS: SOD CHLORIDE 0.9% IVPB (15:49)
[2018-11-27] MEDS: LORAZEPAM 1 MG TAB GTB ×6 (01:00→20:28)
[2018-11-27] MEDS: ALBUTEROL HFA 8 GM INHALER INH ×4 (02:03→19:09)
[2018-11-27] MEDS: IPRATROPIUM (HFA) 12.9 GM INHALER INH ×4 (02:03→19:09)
[2018-11-27] MEDS: GABAPENTIN (50 MG/ML PO SYG) GTB ×3 (05:10→22:11)
[2018-11-27] MEDS: LANSOPRAZOLE 30 MG CAP GTB ×2 (05:10→16:17)
[2018-11-27] MEDS: INSULIN ASPART [NOVOLOG] 3 ML PEN SC ×4 (05:41→23:34)
[2018-11-27 05:46] LABS: ADD MAN DIFF? NO
[2018-11-27 05:50] LABS: WHITE BLOOD COUNT 15.4 10^3/ul (4.8-10.8)
[2018-11-27 05:50] LABS: ABNORMAL IP MESSAGE 1; BASOPHIL # 0.1 10^3/ul (0.0-0.1); BASOPHILS % 0.8 % (0.0-2.0); EOSINOPHILS # 1.5 10^3/ul (0.0-0.5); EOSINOPHILS % 9.7 % (0.0-7.0); HEMATOCRIT 24.5 % (42.0-52.0); LYMPHOCYTES # 1.1 10^3/ul (0.8-2.9); LYMPHOCYTES % 7.1 % (15.0-51.0); MEAN CORPUSCULAR HEMOGLOBIN 27.1 pg (29.0-33.0); MEAN CORPUSCULAR HGB CONC 28.6 g/dl (32.0-37.0); MEAN PLATELET VOLUME 11.1 fl (7.4-10.4); MONOCYTE # 1.3 10^3/ul (0.3-0.9); MONOCYTES % 8.3 % (0.0-11.0); NEUTROPHIL # 10.8 10^3/ul (1.6-7.5); NEUTROPHILS % 70.1 % (39.0-77.0); PLATELET COUNT 434 10^3/UL (140-415); POSITIVE DIFF @See below; RED BLOOD COUNT 2.58 10^6/ul (4.70-6.10); RED CELL DISTRIBUTION WIDTH 16.6 % (11.5-14.5)
[2018-11-27 06:20] LABS: ANION GAP 3 (5-13); BLOOD UREA NITROGEN 29 mg/dl (7-20); CALCIUM 8.9 mg/dl (8.4-10.2); CARBON DIOXIDE 38 mmol/L (21-31); CHLORIDE 101 mmol/L (97-110); CREATININE 0.46 mg/dl (0.61-1.24); Estimated GFR > 60 mL/min (>60); GLUCOSE 102 mg/dl (70-220); MAGNESIUM 2.1 mg/dl (1.7-2.5); PHOSPHORUS 3.4 mg/dl (2.5-4.9); POTASSIUM 4.2 mmol/L (3.5-5.1); SODIUM 142 mmol/L (135-144)
[2018-11-27] MEDS: METOCLOPRAMIDE 10 MG INJ IV ×3 (08:29→20:24)
[2018-11-27 09:32] LABS: PROCALCITONIN 1.57 ng/mL (<0.10)
[2018-11-27] MEDS: HYDROCORTISONE 5 MG TAB PEG ×3 (09:44→20:24)
[2018-11-27] MEDS: ASCORBIC ACID 250 MG TAB GTB (09:44)
[2018-11-27] MEDS: HYDROXYCHLOROQUINE 200 MG TAB PO ×2 (09:45→20:24)
[2018-11-27] MEDS: CALCITRIOL 0.5 MCG CAPSULE PO ×2 (09:45→20:24)
[2018-11-27] MEDS: MAGNESIUM OXIDE 400 MG TAB GTB ×2 (09:45→20:25)
[2018-11-27] MEDS: LINAGLIPTIN 5 MG TABLET PO (09:45)
[2018-11-27] MEDS: TRIMETHOPRIM/SULFAMETHOX (PO SYG) GTB (09:46)
[2018-11-27] MEDS: CEFEPIME 1GM/50 ML (PMX) 50 ML IVPB ×2 (09:46→20:25)
[2018-11-27] MEDS: QUETIAPINE 100 MG TAB GTB ×2 (09:46→20:25)
[2018-11-27] MEDS: BENAZEPRIL 10 MG TAB PO (09:46)
[2018-11-27] MEDS: DULOXETINE 30 MG CAP DR PO (09:47)
[2018-11-27] MEDS: CA CARBONATE (250 MG/ML) 5ML CUP GTB ×4 (09:47→20:24)
[2018-11-27] MEDS: LEVETIRACETAM (100 MG/ML) 5ML CUP GTB ×2 (09:47→20:24)
[2018-11-27] MEDS: ACETAZOLAMIDE 500 MG INJ IV (09:47)
[2018-11-27] MEDS: ZINC SULFATE 220 MG CAP GTB (09:47)
[2018-11-27] MEDS: L ACIDOPHIL/B LACTIS/B LONGUM CAPSULE GTB ×2 (09:47→20:24)
[2018-11-27] MEDS: MICONAZOLE 2% 30 GM CR TOP ×2 (09:48→20:25)
[2018-11-27] MEDS: BALSAM PERU/CASTOR OIL 60 GM TUBE TOP ×2 (09:48→20:25)
[2018-11-27] MEDS: ENOXAPARIN 30 MG/0.3 ML SYG SC (10:11)
[2018-11-27] MEDS: DAPTOMYCIN IVPB (16:16)
[2018-11-27] MEDS: SOD CHLORIDE 0.9% IVPB (16:16)
[2018-11-27] MEDS: FENTAnyl (DRIP) 1000 mcg/100mL 100 ML IV (18:54)
[2018-11-28] MEDS: LORAZEPAM 1 MG TAB GTB ×5 (01:00→17:00)
[2018-11-28] MEDS: ALBUTEROL HFA 8 GM INHALER INH ×3 (01:34→14:20)
[2018-11-28] MEDS: IPRATROPIUM (HFA) 12.9 GM INHALER INH ×3 (01:34→14:20)
[2018-11-28 05:14] LABS: ADD MAN DIFF? NO
[2018-11-28 05:22] LABS: ABNORMAL IP MESSAGE 1; BASOPHIL # 0.1 10^3/ul (0.0-0.1); BASOPHILS % 0.8 % (0.0-2.0); EOSINOPHILS # 0.6 10^3/ul (0.0-0.5); EOSINOPHILS % 3.9 % (0.0-7.0); HEMATOCRIT 24.7 % (42.0-52.0); LYMPHOCYTES # 1.3 10^3/ul (0.8-2.9); LYMPHOCYTES % 8.5 % (15.0-51.0); MEAN CORPUSCULAR HEMOGLOBIN 27.3 pg (29.0-33.0); MEAN CORPUSCULAR HGB CONC 28.3 g/dl (32.0-37.0); MEAN CORPUSCULAR VOLUME 96.5 fl (82.0-101.0); MEAN PLATELET VOLUME 11.4 fl (7.4-10.4); MONOCYTE # 1.6 10^3/ul (0.3-0.9); MONOCYTES % 10.5 % (0.0-11.0); NEUTROPHIL # 11.3 10^3/ul (1.6-7.5); NEUTROPHILS % 72.8 % (39.0-77.0); PLATELET COUNT 434 10^3/UL (140-415); POSITIVE DIFF @See below; RED BLOOD COUNT 2.56 10^6/ul (4.70-6.10); RED CELL DISTRIBUTION WIDTH 16.5 % (11.5-14.5)
[2018-11-28 05:22] LABS: WHITE BLOOD COUNT 15.6 10^3/ul (4.8-10.8)
[2018-11-28] MEDS: GABAPENTIN (50 MG/ML PO SYG) GTB ×2 (05:41→13:27)
[2018-11-28] MEDS: LANSOPRAZOLE 30 MG CAP GTB ×2 (05:41→17:22)
[2018-11-28] MEDS: INSULIN ASPART [NOVOLOG] 3 ML PEN SC ×3 (05:47→17:52)
[2018-11-28 06:19] LABS: ALANINE AMINOTRANSFERASE 40 IU/L (13-69); ALBUMIN 2.8 g/dl (3.3-4.9); ALBUMIN/GLOBULIN RATIO 1.03; ALKALINE PHOSPHATASE 115 IU/L (42-121); ANION GAP 3 (5-13); ASPARTATE AMINO TRANSFERASE 25 IU/L (15-46); BLOOD UREA NITROGEN 26 mg/dl (7-20); CALCIUM 9.2 mg/dl (8.4-10.2); CARBON DIOXIDE 39 mmol/L (21-31); CHLORIDE 98 mmol/L (97-110); CREATININE 0.51 mg/dl (0.61-1.24); Estimated GFR > 60 mL/min (>60); GLUCOSE 141 mg/dl (70-220); POTASSIUM 4.7 mmol/L (3.5-5.1); SODIUM 140 mmol/L (135-144); TOTAL PROTEIN 5.5 g/dl (6.1-8.1)
[2018-11-28] MEDS: METOCLOPRAMIDE 10 MG INJ IV ×2 (09:15→13:26)
[2018-11-28] MEDS: ASCORBIC ACID 250 MG TAB GTB (09:15)
[2018-11-28] MEDS: DULOXETINE 30 MG CAP DR PO (09:15)
[2018-11-28] MEDS: ZINC SULFATE 220 MG CAP GTB (09:15)
[2018-11-28] MEDS: HYDROCORTISONE 5 MG TAB PEG ×2 (09:15→17:05)
[2018-11-28] MEDS: CALCITRIOL 0.5 MCG CAPSULE PO (09:15)
[2018-11-28] MEDS: QUETIAPINE 100 MG TAB GTB (09:16)
[2018-11-28] MEDS: LINAGLIPTIN 5 MG TABLET PO (09:16)
[2018-11-28] MEDS: BENAZEPRIL 10 MG TAB PO (09:16)
[2018-11-28] MEDS: HYDROXYCHLOROQUINE 200 MG TAB PO (09:16)
[2018-11-28] MEDS: LEVETIRACETAM (100 MG/ML) 5ML CUP GTB (09:16)
[2018-11-28] MEDS: MAGNESIUM OXIDE 400 MG TAB GTB (09:16)
[2018-11-28] MEDS: CEFEPIME 1GM/50 ML (PMX) 50 ML IVPB (09:17)
[2018-11-28] MEDS: ACETAZOLAMIDE 500 MG INJ IV (09:17)
[2018-11-28] MEDS: CA CARBONATE (250 MG/ML) 5ML CUP GTB ×3 (09:17→17:23)
[2018-11-28] MEDS: MICONAZOLE 2% 30 GM CR TOP (09:18)
[2018-11-28] MEDS: BALSAM PERU/CASTOR OIL 60 GM TUBE TOP (09:18)
[2018-11-28] MEDS: ENOXAPARIN 30 MG/0.3 ML SYG SC (09:49)
[2018-11-28] MEDS ORDERED: CALCITRIOL 0.25 MCG CAP PO (10:00)
[2018-11-28] MEDS: CALCITRIOL (1 MCG/ML PO SYG) GTB (10:28)
[2018-11-28] MEDS: TRIMETHOPRIM/SULFAMETHOX (PO SYG) GTB (10:28)
[2018-11-28] MEDS: L ACIDOPHIL/B LACTIS/B LONGUM CAPSULE GTB (10:31)
[2018-11-28] MEDS: SOD CHLORIDE 0.9% 500 ML IV (13:25)
[2018-11-28 14:43] LABS: PNEUM JIROVECCI SRC SPUTUM; PNEUMOCYSTIS JIROVECCI DFA NOT DETECTED
[2018-11-28] MEDS: DAPTOMYCIN IVPB (17:32)
[2018-11-28] MEDS: SOD CHLORIDE 0.9% IVPB (17:32)
[2018-11-28] MEDS: morphine (DRIP) 100 MG/100 ML 100 ML IV (18:48)
[2018-11-28] MEDS ORDERED: ATROPINE 1% 5 ML OPH SL (19:00)
[2018-11-28] MEDS: LORAZEPAM 2 MG INJ IV ×2 (19:03→20:01)
== END 2018-11-28 22:53 | disposition expired | DRG 870 ==
LOC: ICU 12:16
PROC: 5A1955Z Respiratory Ventilation, Greater than 96 Consecutive Hours (ICD-10-PCS; 2018-10-17)
PROC: 02HV33Z Insertion of Infusion Device into Superior Vena Cava, Percutaneous Approach (ICD-10-PCS; principal; 2018-11-09)
DX: A41.9 Sepsis, unspecified organism (principal); L89.153 Pressure ulcer of sacral region, stage 3; J69.0 Pneumonitis due to inhalation of food and vomit; J96.22 Acute and chronic respiratory failure with hypercapnia; J96.21 Acute and chronic respiratory failure with hypoxia; G92 Toxic encephalopathy; R65.21 Severe sepsis with septic shock; R53.2 Functional quadriplegia; E87.0 Hyperosmolality and hypernatremia; N17.9 Acute kidney failure, unspecified; E27.3 Drug-induced adrenocortical insufficiency; I42.9 Cardiomyopathy, unspecified; N39.0 Urinary tract infection, site not specified; Z99.11 Dependence on respirator [ventilator] status; I12.9 Hypertensive chronic kidney disease with stage 1 through stage 4 chronic kidney disease, or unspecified chronic kidney disease; Z66 Do not resuscitate; L89.152 Pressure ulcer of sacral region, stage 2; J44.9 Chronic obstructive pulmonary disease, unspecified; M06.9 Rheumatoid arthritis, unspecified; E11.43 Type 2 diabetes mellitus with diabetic autonomic (poly)neuropathy; K31.84 Gastroparesis; E03.9 Hypothyroidism, unspecified; G89.4 Chronic pain syndrome; N18.2 Chronic kidney disease, stage 2 (mild); D89.9 Disorder involving the immune mechanism, unspecified; M79.7 Fibromyalgia; R19.7 Diarrhea, unspecified; G40.909 Epilepsy, unspecified, not intractable, without status epilepticus; E83.52 Hypercalcemia; K21.9 Gastro-esophageal reflux disease without esophagitis; F41.9 Anxiety disorder, unspecified; R13.12 Dysphagia, oropharyngeal phase; E87.70 Fluid overload, unspecified; E83.51 Hypocalcemia; E87.5 Hyperkalemia; E83.42 Hypomagnesemia; E87.6 Hypokalemia; E11.42 Type 2 diabetes mellitus with diabetic polyneuropathy; F32.9 Major depressive disorder, single episode, unspecified; K59.00 Constipation, unspecified; D63.8 Anemia in other chronic diseases classified elsewhere; Z79.4 Long term (current) use of insulin; Z93.1 Gastrostomy status; Z93.0 Tracheostomy status; Z51.5 Encounter for palliative care
CPT/HCPCS: 36430; 36569; 36600; 71045; 74018; 76937; 80048; 80053; 80162; 81001; 81003; 82043; 82270; 82330; 82550; 82728; 82803; 82962; 83540; 83605; 83735; 83935; 83970; 84100; 84145; 84155; 84300; 84443; 84484; 85025; 86480; 86635; 86850; 86900; 86901; 86920; 87015; 87040-91; 87045; 87070; 87075; 87081; 87086; 87116; 87281; 89220; 90686; 92526; 92610; 93306; 93970; 94002; 94003; 94640; 94664; 97110; 97161; 97530